=== PATIENT | male | born 1975 | race Caucasian/White ===

== ENCOUNTER 2016-11-18 12:57 | Emergency (ER) | payer OTHER ==
[2016-11-18 13:05] VITALS: TEMP 97.2
[2016-11-18] MEDS ORDERED: DICYCLOMINE 10 MG/ML 2 ML AMP IM STA (13:39)
[2016-11-18] MEDS ORDERED: SODIUM CHLORIDE 0.9% 2,000 ML IV STA (13:39)
[2016-11-18] MEDS ORDERED: cloNIDine 0.1 MG/24HR PATCH 1 PATCH PATCH TRANSDERM STA (13:39)
[2016-11-18] MEDS ORDERED: ONDANSETRON 4 MG/2 ML VIAL IVP STA (13:39)
--- NOTE | 2016-11-18 13:42 | ED ---
General Adult HPI - General Chief complaint: Nausea/Vomiting/Diarrhea Stated complaint: withdrawal symptoms Time Seen by Provider: 11/18/16 13:35 Source: patient, RN notes reviewed Mode of arrival: ambulatory Limitations: no limitations - History of Present Illness Initial comments: 41-year-old male presents to the emergency department with a chief complaint of opiate withdrawal. Patient states that he abused heroin and fentanyl. Patient states her last 2 days he has not been using. Patient states these having nausea vomiting abdominal pain. Patient has controlled the past. Patient states she's not a liter drink anything for the last 2 days and he continues to have this pains and he was hoping there was something we can give him to help with her symptoms. Patient denies any recent fever, chills, shortness of breath , chest pain, back pain, numbness or tingling, dysuria or hematuria, constipation or diarrhea, headaches or visual changes, or any other current symptoms. - Related Data Previous Rx's Medication Instructions Recorded Ondansetron Odt [Zofran ODT] 4 mg PO Q8HR PRN #20 tab 11/18/16 Allergies Allergy/AdvReac Type Severity Reaction Status Date / Time No Known Allergies Allergy Verified 11/18/16 14:22 Review of Systems ROS Statement: Those systems with pertinent positive or pertinent negative responses have been documented in the HPI. ROS Other: All systems not noted in ROS Statement are negative. Past Medical History Past Medical History: No Reported History History of Any Multi-Drug Resistant Organisms: None Reported Past Surgical History: No Surgical Hx Reported Past Psychological History: No Psychological Hx Reported Smoking Status: Current every day smoker Past Alcohol Use History: Occasional Past Drug Use History: Marijuana, Opiates General Exam - General Exam Comments Initial Comments: General: The patient is awake and alert, in no distress, and does not appear acutely ill. Eye: Pupils are equal, round and reactive to light, extra-ocular movements are intact; there is normal conjunctiva bilaterally. No signs of icterus. Ears, nose, mouth and throat: Patient's mucous membranes do appear to be dry. Neck: The neck is supple, there is no tenderness. Cardiovascular: There is a regular rate and rhythm. No murmur, rub or gallop is appreciated. Respiratory: Lungs are clear to auscultation, respirations are non-labored, breath sounds are equal. No wheezes, stridor, rales, or rhonchi. Gastrointestinal: Soft, non-distended, non-tender abdomen without masses or organomegaly noted. There is no rebound or guarding present. No CVA tenderness. Bowel sounds are unremarkable. Back: There is no tenderness to palpation in the midline. There is no obvious deformity. No rashes noted. Musculoskeletal: Normal ROM, no tenderness, There is no pedal edema. There is no calf tenderness or swelling. Sensation intact. Pulses equal bilaterally 2+. Neurological: CN II-XII intact, There are no obvious motor or sensory deficits. Coordination appears grossly intact. Speech is normal. Skin: Skin is warm and dry and no rashes or lesions are noted. Psychiatric: Cooperative, appropriate mood & affect, normal judgment. Limitations: no limitations Course Vital Signs 11/18/16 13:00 Temperature 97.2 F L Pulse Rate 79 Respiratory 18 Rate Blood Pressure 155/98 O2 Sat by Pulse 99 Oximetry Medical Decision Making - Medical Decision Making 41-year-old male presents for opiate withdrawal. His lab work is reviewed. Patient does appear to be adequately hydrated we did give him fluids. We also gave him Zofran for home he is given a clonidine patch. We did discuss follow- up he was given follow-up for since abuse programs. We did discuss return for hours all his questions. He stated the Mukul is given plan. He will be discharged. - Lab Data Result diagrams: 11/18/16 13:50 11/18/16 13:50 Lab Results 11/18/16 11/18/16 Range/Units 13:50 13:50 WBC 11.5 H (3.8-10.6) k/uL RBC 5.11 (4.30-5.90) m/uL Hgb 15.8 (13.0-17.5) gm/dL Hct 45.7 (39.0-53.0) % MCV 89.4 (80.0-100.0) fL MCH 30.9 (25.0-35.0) pg MCHC 34.5 (31.0-37.0) g/dL RDW 15.5 (11.5-15.5) % Plt Count 412 (150-450) k/uL Neutrophils % 77 % Lymphocytes % 15 % Monocytes % 5 % Eosinophils % 1 % Basophils % 0 % Neutrophils # 8.9 H (1.3-7.7) k/uL Lymphocytes # 1.8 (1.0-4.8) k/uL Monocytes # 0.5 (0-1.0) k/uL Eosinophils # 0.1 (0-0.7) k/uL Basophils # 0.0 (0-0.2) k/uL Sodium 136 L (137-145) mmol/L Potassium 4.0 (3.5-5.1) mmol/L Chloride 98 (98-107) mmol/L Carbon Dioxide 24 (22-30) mmol/L Anion Gap 14 mmol/L BUN 17 (9-20) mg/dL Creatinine 0.50 L (0.66-1.25) mg/dL Est GFR (MDRD) Af Amer >60 (>60 ml/min/1.73 sqM) Est GFR (MDRD) Non-Af >60 (>60 ml/min/1.73 sqM) Glucose 104 H (74-99) mg/dL Calcium 9.7 (8.4-10.2) mg/dL Total Bilirubin 2.7 H (0.2-1.3) mg/dL AST 58 (17-59) U/L ALT 67 (21-72) U/L Alkaline Phosphatase 102 (38-126) U/L Total Protein 8.9 H (6.3-8.2) g/dL Albumin 4.3 (3.5-5.0) g/dL Disposition Clinical Impression: Hyponatremia Disposition: HOME SELF-CARE Condition: Stable Instructions: Narcotic Abuse (ED) Additional Instructions: Please use medication as discussed. Please follow up with family doctor if symptoms have not improved over the next two days. Please return to the emergency room if your symptoms increase or worsen or for any other concerns. Prescriptions: Ondansetron Odt [Zofran ODT] 4 mg PO Q8HR PRN #20 tab PRN Reason: Nausea Referrals: Angie Mohan MD [STAFF PHYSICIAN] - 1-2 days Time of Disposition: 14:36
[2016-11-18 14:24] LABS: Basophils % (A) 0 %; CH 30.7; CHCM 34.5; Eosinophils # (A) 0.1 k/uL (0-0.7); Eosinophils % (A) 1 %; HCT 45.7 % (39.0-53.0); HDW 2.37; HGB 15.8 gm/dL (13.0-17.5); Luc # (Auto) 0.27; Luc % (Auto) 2; Lymphocytes # (A) 1.8 k/uL (1.0-4.8); Lymphocytes % (A) 15 %; MCH 30.9 pg (25.0-35.0); MCHC 34.5 g/dL (31.0-37.0); MCV 89.4 fL (80.0-100.0); Mean Platelet Volume 7.1; Monocytes # (A) 0.5 k/uL (0-1.0); Monocytes % (A) 5 %; Neutrophils # (A) 8.9 k/uL (1.3-7.7); Neutrophils % (A) 77 %; RBC 5.11 m/uL (4.30-5.90); RDW 15.5 % (11.5-15.5); WBC 11.5 k/uL (3.8-10.6); WBC (Perox) 11.63
[2016-11-18 14:28] LABS: ALT 67 U/L (21-72); AST 58 U/L (17-59); Alkaline Phosphatase 102 U/L (38-126); Anion Gap 14 mmol/L; Blood Urea Nitrogen 17 mg/dL (9-20); Calcium 9.7 mg/dL (8.4-10.2); Carbon Dioxide 24 mmol/L (22-30); Chloride 98 mmol/L (98-107); Glucose 104 mg/dL (74-99); Non-African American GFR(MDRD) >60 (>60 ml/min/1.73 sqM); Sodium 136 mmol/L (137-145); Total Bilirubin 2.7 mg/dL (0.2-1.3); Total Protein 8.9 g/dL (6.3-8.2)
[2016-11-18 14:50] VITALS: RESP 20
[2016-11-18 14:52] VITALS: BP 159/83; PULSE 71
== END 2016-11-18 15:03 | disposition home or self-care (01) ==
LOC: EC 12:57
DX: E87.1 Hypo-osmolality and hyponatremia (principal); R11.2 Nausea with vomiting, unspecified; F17.200 Nicotine dependence, unspecified, uncomplicated
CPT/HCPCS: 99284; 96365; 96375; 96372; 36415; 80053; 85025; J0500; J2405

== ENCOUNTER 2020-06-05 22:21 | Emergency (ER) | payer OTHER ==
[2020-06-05 22:29] VITALS: TEMP 98.2
--- NOTE | 2020-06-05 22:52 | ED ---
General Adult HPI - General Chief complaint: Alcohol Stated complaint: ETOH Time Seen by Provider: 06/05/20 22:37 Source: patient, EMS Mode of arrival: EMS Limitations: no limitations - History of Present Illness Initial comments: This patient's a 44-year-old man brought here after being found unconscious in public space. When I interview the patient, he states that someone had given him Xanax. Patient states that he usually uses heroin as well but did not today. Denies use of other substances today no alcohol. Patient denies any injury or other medical condition. No pain area no dyspnea. Patient requests a popsicle -: minutes(s) Severity scale (1-10): 0 Improves with: none Worsens with: none Associated Symptoms: denies other symptoms Treatments Prior to Arrival: none - Related Data Home Medications Medication Instructions Recorded Confirmed No Known Home Medications 02/21/17 02/21/17 Allergies Allergy/AdvReac Type Severity Reaction Status Date / Time No Known Allergies Allergy Verified 02/21/17 09:09 Review of Systems ROS Statement: Those systems with pertinent positive or pertinent negative responses have been documented in the HPI. ROS Other: All systems not noted in ROS Statement are negative. Constitutional: Denies: fever, weakness Eyes: Denies: eye pain, vision change Respiratory: Denies: cough, dyspnea Cardiovascular: Denies: chest pain, palpitations Gastrointestinal: Denies: abdominal pain, vomiting, diarrhea Genitourinary: Denies: dysuria, hematuria Musculoskeletal: Denies: back pain Skin: Denies: rash Neurological: Denies: headache, weakness Psychiatric: Denies: depression, homicidal thoughts, suicidal thoughts Past Medical History Past Medical History: No Reported History History of Any Multi-Drug Resistant Organisms: None Reported Past Surgical History: No Surgical Hx Reported Past Psychological History: No Psychological Hx Reported Smoking Status: Current every day smoker Past Alcohol Use History: Occasional Past Drug Use History: Heroin, Marijuana, Opiates General Exam Limitations: no limitations General appearance: in no apparent distress, other (The patient is somnolent but arousable.) Head exam: Present: atraumatic, normocephalic Eye exam: Present: normal appearance, PERRL, EOMI. Absent: scleral icterus, conjunctival injection ENT exam: Present: mucous membranes dry Neck exam: Present: normal inspection, full ROM. Absent: tenderness Respiratory exam: Present: normal lung sounds bilaterally. Absent: respiratory distress, wheezes, rales, rhonchi, stridor Cardiovascular Exam: Present: regular rate, normal rhythm, normal heart sounds. Absent: systolic murmur, diastolic murmur, rubs, gallop GI/Abdominal exam: Present: soft. Absent: distended, tenderness, guarding, rebound, rigid Extremities exam: Present: normal inspection, normal capillary refill. Absent: pedal edema, calf tenderness Back exam: Absent: CVA tenderness (R), CVA tenderness (L), vertebral tenderness Neurological exam: Present: oriented X3, CN II-XII intact, other (Somnolent but arousable. GCS 15.). Absent: motor sensory deficit Psychiatric exam: Absent: depressed, suicidal ideation Skin exam: Present: warm, dry, normal color, other (Needle tracks to left hand dorsum) Course Vital Signs 06/05/20 06/05/20 06/06/20 22:22 23:29 00:00 Temperature 98.2 F Pulse Rate 73 68 70 Respiratory 16 18 16 Rate Blood Pressure 127/82 112/62 O2 Sat by Pulse 100 96 96 Oximetry 06/06/20 06/06/20 06/06/20 01:00 02:00 03:00 Temperature Pulse Rate 65 Respiratory 18 Rate Blood Pressure O2 Sat by Pulse 95 93 L 97 Oximetry Disposition Clinical Impression: Benzodiazepine intoxication Disposition: HOME SELF-CARE Condition: Good Instructions (If sedation given, give patient instructions): Benzodiazepine Overdose (ED) Is patient prescribed a controlled substance at d/c from ED?: No Referrals: None,Stated [Primary Care Provider] - 1-2 days
[2020-06-06 04:30] VITALS: BP 112/62; PULSE 65; RESP 18
== END 2020-06-06 04:45 | disposition home or self-care (01) ==
LOC: EC 22:21
DX: T42.4X1A Poisoning by benzodiazepines, accidental (unintentional), initial encounter (principal); F17.200 Nicotine dependence, unspecified, uncomplicated; F12.90 Cannabis use, unspecified, uncomplicated; F11.90 Opioid use, unspecified, uncomplicated; F15.90 Other stimulant use, unspecified, uncomplicated
CPT/HCPCS: 99284

== ENCOUNTER 2021-06-12 02:22 | Inpatient (IN) | payer OTHER ==
[2021-06-12] MEDS ORDERED: SODIUM CHLORIDE 0.9% 1,000 ML IV STA (02:35)
[2021-06-12] MEDS ORDERED: ETOMIDATE 2 MG/ML 10 ML VIAL IVP STA (02:41)
[2021-06-12] MEDS ORDERED: SUCCINYLCHOLINE CHLORIDE VIAL 200 MG/10 ML VIAL IV STA (02:42)
[2021-06-12] MEDS ORDERED: LORazepam 2 MG/ML INJ IV STA (02:45)
[2021-06-12] MEDS ORDERED: HYDROmorphone 1 MG/ML 1 ML SYRINGE IVP STA ×2 (02:46→03:21)
--- NOTE | 2021-06-12 03:10 | XR ---
EXAMINATION TYPE: XR chest 1V portable DATE OF EXAM: 06/12/2021 COMPARISON: NONE HISTORY: Respiratory failure TECHNIQUE: Single view FINDINGS: The endotracheal tube is 4 cm from the collins. There is left-sided pulmonary interstitial a nd airspace edema. There is minimal edema right lower lobe. Heart size is normal. There are chest christiano ds. There are no hilar masses. No pleural effusion. IMPRESSION: There is pulmonary edema. Endotracheal tube in good position.
[2021-06-12 03:18] LABS: ABG Base Excess -5.4 mmol/L; ABG HCO3 24 mmol/L (21-25); ABG Oxygen Saturation 96.3 % (94-97); ABG PO2 114 mmHg (83-108); ABG TCO2 27 mmol/L (19-24); Allen Test Performed? Yes
[2021-06-12 03:25] LABS: ABG PCO2 78 mmHg (35-45)
[2021-06-12 03:41] LABS: Basophils # (A) 0.1 k/uL (0-0.2); Basophils % (A) 1 %; Eosinophils # (A) 0.4 k/uL (0-0.7); Eosinophils % (A) 3 %; HCT 50.2 % (39.0-53.0); HGB 16.7 gm/dL (13.0-17.5); Lymphocytes # (A) 8.7 k/uL (1.0-4.8); Lymphocytes % (A) 59 %; MCH 30.6 pg (25.0-35.0); MCHC 33.2 g/dL (31.0-37.0); Mean Platelet Volume 7.4; Monocytes # (A) 0.6 k/uL (0-1.0); Monocytes % (A) 4 %; Neutrophils # (A) 4.6 k/uL (1.3-7.7); Neutrophils % (A) 31 %; Platelet Count 274 k/uL (150-450); RBC 5.46 m/uL (4.30-5.90); RDW 14.7 % (11.5-15.5); WBC 14.8 k/uL (3.8-10.6)
[2021-06-12 03:48] LABS: ALT 134 U/L (4-49); AST 205 U/L (17-59); African American GFR (CKD) >90 (>60 ml/min/1.73 sqM); Alcohol <10 mg/dL; Alkaline Phosphatase 72 U/L (38-126); Anion Gap 12 mmol/L; Blood Urea Nitrogen 20 mg/dL (9-20); Calcium 8.4 mg/dL (8.4-10.2); Carbon Dioxide 19 mmol/L (22-30); Chloride 105 mmol/L (98-107); Glucose 149 mg/dL (74-99); Non-African American GFR(CKD) >90 (>60 ml/min/1.73 sqM); Sodium 136 mmol/L (137-145); Total Bilirubin 1.2 mg/dL (0.2-1.3); Total Protein 8.2 g/dL (6.3-8.2)
[2021-06-12 03:49] LABS: Potassium 4.5 mmol/L (3.5-5.1)
--- NOTE | 2021-06-12 04:15 | ED ---
Overdose HPI - General Chief Complaint: Overdose Stated Complaint: overdose Time Seen by Provider: 06/12/21 02:24 Source: patient, EMS Mode of arrival: EMS Limitations: no limitations - History of Present Illness Initial Comments: This patient is a 45-year-old man who reportedly has history of heroin use found by associates unresponsive. They activated EMS and patient reportedly received some bystander CPR. The patient was given Narcan 1 mg intranasal and then became more alert, pushing people away, breathing on his own. On arrival here, the patient is not able to provide any history due to respiratory distress and appears delirious. Complaint: other -: unknown Intent: unknown How Overdose Was Discovered: family/friend present at time - Related Data Allergies Allergy/AdvReac Type Severity Reaction Status Date / Time Unable to Assess Allergy Verified 06/12/21 02:29 Review of Systems ROS Statement: Those systems with pertinent positive or pertinent negative responses have been documented in the HPI. ROS Other: All systems not noted in ROS Statement are negative. Limitations: ROS unobtainable due to patients medical condition (Delirium and respiratory distress) Past Medical History Past Medical History: Unable to Obtain History of Any Multi-Drug Resistant Organisms: Unobtainable Past Surgical History: Unable to Obtain Past Psychological History: Unable to Obtain Smoking Status: Current every day smoker Past Alcohol Use History: Occasional Past Drug Use History: Heroin General Exam Limitations: no limitations General appearance: obtunded Head exam: Present: atraumatic, normocephalic Eye exam: Present: normal appearance, PERRL, EOMI. Absent: scleral icterus, conjunctival injection ENT exam: Present: other Neck exam: Present: normal inspection, full ROM. Absent: tenderness, meningismus Respiratory exam: Present: respiratory distress, rales, rhonchi, accessory muscle use. Absent: decreased breath sounds, prolonged expiratory Cardiovascular Exam: Present: normal rhythm, tachycardia, systolic murmur. Absent: diastolic murmur, rubs, gallop GI/Abdominal exam: Present: soft, guarding. Absent: distended, rebound, rigid, mass, pulsatile mass Extremities exam: Present: normal inspection, normal capillary refill. Absent: tenderness, pedal edema Back exam: Present: normal inspection. Absent: CVA tenderness (R), CVA tenderness (L), vertebral tenderness Neurological exam: Present: altered, CN II-XII intact, other (Patient appears delirious. He is making purposeful movements. He does attempt to pull the nonrebreather mask off. When instructed not to, the patient does listen to commands briefly). Absent: oriented X3, motor sensory deficit Skin exam: Present: intact, normal color, cyanosis, diaphoretic, other (Skin is cool and diaphoretic. There is piloerection.). Absent: rash Course Vital Signs 06/12/21 06/12/21 06/12/21 02:24 02:55 03:26 Temperature 97.3 F L Pulse Rate 130 H 108 H Pulse Rate [ 110 H Auditor In Charge ] Respiratory 38 H 28 H Rate Blood Pressure 181/107 114/76 O2 Sat by Pulse 87 L 97 Oximetry 06/12/21 06/12/21 06/12/21 03:30 03:42 03:46 Temperature Pulse Rate 107 H 106 H 105 H Pulse Rate [ Auditor In Charge ] Respiratory 28 H 28 H 28 H Rate Blood Pressure 94/52 115/67 108/62 O2 Sat by Pulse 97 97 100 Oximetry 06/12/21 06/12/21 04:00 04:28 Temperature Pulse Rate 96 87 Pulse Rate [ Auditor In Charge ] Respiratory 28 H 28 H Rate Blood Pressure 89/49 92/55 O2 Sat by Pulse 99 100 Oximetry Procedures - Intubation Sedative: Etomidate Paralytic: Succinylcholine Laryngoscope: Will Size: 3 ET Tube Size: 8 ET Tube Uncuffed: No Tube Secured Depth (cm): 21 Tube Secured Location: teeth Tube Placement Confirmation: visualized tube passing through cords, equal breath sounds bilaterally, no breath sounds over epigastrium, confirmation by capnometry Patient Tolerated Procedure: well Intubation Complications: none Medical Decision Making - Medical Decision Making Patient is 45-year-old man brought falling suspected heroin overdose. The patient is manifesting moderate to marked respiratory distress clinically appearing to have significant pulmonary edema versus some aspiration. The patient is intubated for acute respiratory failure. Case is discussed with admitting physician and with the residential program manager. Treatment recommendations are incorporated. - Lab Data Result diagrams: 06/12/21 06:05 06/12/21 03:07 Lab Results 06/12/21 06/12/21 06/12/21 Range/Units 03:07 03:07 03:07 WBC 14.8 H (3.8-10.6) k/uL RBC 5.46 (4.30-5.90) m/uL Hgb 16.7 (13.0-17.5) gm/dL Hct 50.2 (39.0-53.0) % MCV 92.0 (80.0-100.0) fL MCH 30.6 (25.0-35.0) pg MCHC 33.2 (31.0-37.0) g/dL RDW 14.7 (11.5-15.5) % Plt Count 274 (150-450) k/uL MPV 7.4 Neutrophils % 31 % Lymphocytes % 59 % Monocytes % 4 % Eosinophils % 3 % Basophils % 1 % Neutrophils # 4.6 (1.3-7.7) k/uL Lymphocytes # 8.7 H (1.0-4.8) k/uL Monocytes # 0.6 (0-1.0) k/uL Eosinophils # 0.4 (0-0.7) k/uL Basophils # 0.1 (0-0.2) k/uL Manual Slide Review Performed Sample Site ABG pH (7.35-7.45) ABG pCO2 (35-45) mmHg ABG pO2 (83-108) mmHg ABG HCO3 (21-25) mmol/L ABG Total CO2 (19-24) mmol/L ABG O2 Saturation (94-97) % ABG Base Excess mmol/L Nelson Test FiO2 % Sodium 136 L (137-145) mmol/L Potassium 4.5 (3.5-5.1) mmol/L Chloride 105 (98-107) mmol/L Carbon Dioxide 19 L (22-30) mmol/L Anion Gap 12 mmol/L BUN 20 (9-20) mg/dL Creatinine 0.84 (0.66-1.25) mg/dL Est GFR (CKD-EPI)AfAm >90 (>60 ml/min/1.73 sqM) Est GFR (CKD-EPI)NonAf >90 (>60 ml/min/1.73 sqM) Glucose 149 H (74-99) mg/dL Lactic Ac Sepsis Rflx Plasma Lactic Acid Paulo 4.5 H* (0.7-2.0) mmol/L Calcium 8.4 (8.4-10.2) mg/dL Total Bilirubin 1.2 (0.2-1.3) mg/dL AST 205 H (17-59) U/L ALT 134 H (4-49) U/L Alkaline Phosphatase 72 (38-126) U/L Troponin I (0.000-0.034) ng/mL NT-Pro-B Natriuret Pep pg/mL Total Protein 8.2 (6.3-8.2) g/dL Albumin 4.0 (3.5-5.0) g/dL Serum Alcohol <10 mg/dL 06/12/21 06/12/21 06/12/21 Range/Units 03:07 03:07 03:10 WBC (3.8-10.6) k/uL RBC (4.30-5.90) m/uL Hgb (13.0-17.5) gm/dL Hct (39.0-53.0) % MCV (80.0-100.0) fL MCH (25.0-35.0) pg MCHC (31.0-37.0) g/dL RDW (11.5-15.5) % Plt Count (150-450) k/uL MPV Neutrophils % % Lymphocytes % % Monocytes % % Eosinophils % % Basophils % % Neutrophils # (1.3-7.7) k/uL Lymphocytes # (1.0-4.8) k/uL Monocytes # (0-1.0) k/uL Eosinophils # (0-0.7) k/uL Basophils # (0-0.2) k/uL Manual Slide Review Sample Site rbrach ABG pH 7.10 L* (7.35-7.45) ABG pCO2 78 H* (35-45) mmHg ABG pO2 114 H (83-108) mmHg ABG HCO3 24 (21-25) mmol/L ABG Total CO2 27 H (19-24) mmol/L ABG O2 Saturation 96.3 (94-97) % ABG Base Excess -5.4 mmol/L Nelson Test Yes FiO2 100 % Sodium (137-145) mmol/L Potassium (3.5-5.1) mmol/L Chloride (98-107) mmol/L Carbon Dioxide (22-30) mmol/L Anion Gap mmol/L BUN (9-20) mg/dL Creatinine (0.66-1.25) mg/dL Est GFR (CKD-EPI)AfAm (>60 ml/min/1.73 sqM) Est GFR (CKD-EPI)NonAf (>60 ml/min/1.73 sqM) Glucose (74-99) mg/dL Lactic Ac Sepsis Rflx Plasma Lactic Acid Paulo (0.7-2.0) mmol/L Calcium (8.4-10.2) mg/dL Total Bilirubin (0.2-1.3) mg/dL AST (17-59) U/L ALT (4-49) U/L Alkaline Phosphatase (38-126) U/L Troponin I 0.020 (0.000-0.034) ng/mL NT-Pro-B Natriuret Pep 96 pg/mL Total Protein (6.3-8.2) g/dL Albumin (3.5-5.0) g/dL Serum Alcohol mg/dL 06/12/21 Range/Units 03:50 WBC (3.8-10.6) k/uL RBC (4.30-5.90) m/uL Hgb (13.0-17.5) gm/dL Hct (39.0-53.0) % MCV (80.0-100.0) fL MCH (25.0-35.0) pg MCHC (31.0-37.0) g/dL RDW (11.5-15.5) % Plt Count (150-450) k/uL MPV Neutrophils % % Lymphocytes % % Monocytes % % Eosinophils % % Basophils % % Neutrophils # (1.3-7.7) k/uL Lymphocytes # (1.0-4.8) k/uL Monocytes # (0-1.0) k/uL Eosinophils # (0-0.7) k/uL Basophils # (0-0.2) k/uL Manual Slide Review Sample Site ABG pH (7.35-7.45) ABG pCO2 (35-45) mmHg ABG pO2 (83-108) mmHg ABG HCO3 (21-25) mmol/L ABG Total CO2 (19-24) mmol/L ABG O2 Saturation (94-97) % ABG Base Excess mmol/L Nelson Test FiO2 % Sodium (137-145) mmol/L Potassium (3.5-5.1) mmol/L Chloride (98-107) mmol/L Carbon Dioxide (22-30) mmol/L Anion Gap mmol/L BUN (9-20) mg/dL Creatinine (0.66-1.25) mg/dL Est GFR (CKD-EPI)AfAm (>60 ml/min/1.73 sqM) Est GFR (CKD-EPI)NonAf (>60 ml/min/1.73 sqM) Glucose (74-99) mg/dL Lactic Ac Sepsis Rflx Y Plasma Lactic Acid Paulo (0.7-2.0) mmol/L Calcium (8.4-10.2) mg/dL Total Bilirubin (0.2-1.3) mg/dL AST (17-59) U/L ALT (4-49) U/L Alkaline Phosphatase (38-126) U/L Troponin I (0.000-0.034) ng/mL NT-Pro-B Natriuret Pep pg/mL Total Protein (6.3-8.2) g/dL Albumin (3.5-5.0) g/dL Serum Alcohol mg/dL - EKG Data -: EKG Interpreted by Me EKG shows normal: sinus rhythm, axis (Normal), intervals (Short LA interval at 110 ms. QRS duration 88 ms, QTC 384 ms, both normal.), QRS complexes (Normal) Rate: tachycardia (Rate 111 bpm) Interpretation: nonspecific ST-T wave changes Critical Care Time Critical Care Time: Yes (40 minutes) Disposition Clinical Impression: Acute respiratory failure, Pulmonary edema, Overdose Disposition: ADMITTED IP TO THIS HOSP Condition: Critical Is patient prescribed a controlled substance at d/c from ED?: No
[2021-06-12] MEDS ORDERED: ACETAMINOPHEN SUPPOSITORY 650 MG SUPP RECTAL PRN (04:33)
[2021-06-12] MEDS ORDERED: MORPHINE SULFATE 2 MG/ML SYRINGE IV PRN (04:33)
[2021-06-12] MEDS ORDERED: IPRATROPIUM-ALBUTEROL 3 ML NEB INHALATION PRN (04:33)
[2021-06-12] MEDS ORDERED: ARTIFICIAL TEARS OINTMENT 3.5 GM TUBE BOTH EYES PRN (04:33)
[2021-06-12] MEDS ORDERED: NALOXONE 0.4 MG/ML 1 ML VIAL IV PRN (04:33)
[2021-06-12] MEDS ORDERED: PIPERACILLIN-TAZOBACTAM 3.375 GM in SODIUM CHLORIDE 0.9% 100 ML IVPB STA (04:40)
--- NOTE | 2021-06-12 05:05 | P.HPIM ---
History of Present Illness H&P Date: 06/12/21 Patient is a 45-year-old male with a PMH of substance abuse who was brought in by EMS after he was found unresponsive. History obtained from the ED physician and the chart as the patient was intubated at the time of interview. The patient reportedly has a history of heroin abuse and was found by his friends to be unresponsive. The reportedly were doing CPR when EMS arrived, who subsequently gave the patient Narcan which made him more alert. The patient however was in severe respiratory distress and had episodes of vomiting, for which the patient was intubated. Chest x-ray in the emergency room revealed pulmonary edema. EKG revealed sinus tachycardia at 1 11 bpm with T-wave flattening in the inferior leads. Laboratory evaluation was remarkable for WBC 14.8, pH ABG 7.1, pCO2 78, and lactic acid 4.5. Review of systems: Unable to obtain due to mental status Physical examination: General: Disheveled male, intubated, no distress, appears at stated age, normal weight Derm: no unusual rashes/lesions no unusual ecchymoses, warm, dry Head: atraumatic, normocephalic, symmetric Eyes: Anicteric sclera, pupils pinpoint ENT: Nose and ears atraumatic Neck: No thyromegaly, no cervical lymphadenopathy, trachea midline, supple Mouth: no lip lesion Cardiovascular: S1S2 reg, no murmur, positive posterior tibial pulse bilateral, no edema, capillary refill less than 2 seconds Lungs: Scattered coarse breath sounds, no wheezing, no accessory muscle use Abdominal: soft, no appreciable organomegaly Ext: no gross muscle atrophy, no contractures Neuro: Unable to assess Psych: Unable to assess Assessment/plan Acute hypoxic respiratory failure in setting of opiate overdose, suspected aspiration -Continue with Zosyn IV -Ventilator bundle -IV fluids -Driver Education Instructor consult -Admit to medical ICU -Obtain Echo DVT prophylaxis -Heparin subq The patient is admitted with an anticipated greater than 2 midnight stay for evaluation of respiratory failure CODE STATUS: Full Code Anticipated discharge date: 06/[address]: Home Past Medical History Past Medical History: Unable to Obtain History of Any Multi-Drug Resistant Organisms: Unobtainable Past Surgical History: Unable to Obtain Past Psychological History: Unable to Obtain Smoking Status: Current every day smoker Past Alcohol Use History: Occasional Past Drug Use History: Heroin Medications and Allergies Allergies Allergy/AdvReac Type Severity Reaction Status Date / Time Unable to Assess Allergy Verified 06/12/21 02:29 Physical Exam Vitals: Vital Signs Temp Pulse Pulse Resp BP Pulse Ox 06/12/21 04:28 87 28 H 92/55 100 06/12/21 04:00 96 28 H 89/49 99 06/12/21 03:46 105 H 28 H 108/62 100 06/12/21 03:42 106 H 28 H 115/67 97 06/12/21 03:30 107 H 28 H 94/52 97 06/12/21 03:26 97.3 F L 108 H 28 H 114/76 97 06/12/21 02:55 110 H 06/12/21 02:24 130 H 38 H 181/107 87 L Intake and Output 06/11/21 06/11/21 06/12/21 14:59 22:59 06:59 Intake Total 5.012 Balance 5.012 Intake: Intake, IV Titration 5.012 Amount propofoL 1,000 mg In 5.012 Empty Bag 1 bag @ 5 MCG/ KG/MIN 2.228 mls/hr IV . Q24H STA Rx#:[id number] Other: Weight 74.253 kg Results CBC & Chem 7: 06/12/21 03:07 06/12/21 03:07 Labs: Abnormal Lab Results - Last 24 Hours (Table) 06/12/21 06/12/21 06/12/21 Range/Units 03:07 03:07 03:07 WBC 14.8 H (3.8-10.6) k/uL Lymphocytes # 8.7 H (1.0-4.8) k/uL ABG pH (7.35-7.45) ABG pCO2 (35-45) mmHg ABG pO2 (83-108) mmHg ABG Total CO2 (19-24) mmol/L Sodium 136 L (137-145) mmol/L Carbon Dioxide 19 L (22-30) mmol/L Glucose 149 H (74-99) mg/dL Plasma Lactic Acid Paulo 4.5 H* (0.7-2.0) mmol/L AST 205 H (17-59) U/L ALT 134 H (4-49) U/L 06/12/21 Range/Units 03:10 WBC (3.8-10.6) k/uL Lymphocytes # (1.0-4.8) k/uL ABG pH 7.10 L* (7.35-7.45) ABG pCO2 78 H* (35-45) mmHg ABG pO2 114 H (83-108) mmHg ABG Total CO2 27 H (19-24) mmol/L Sodium (137-145) mmol/L Carbon Dioxide (22-30) mmol/L Glucose (74-99) mg/dL Plasma Lactic Acid Paulo (0.7-2.0) mmol/L AST (17-59) U/L ALT (4-49) U/L
[2021-06-12 05:33] LABS: Amphetamine Screen,Urine Detected (NotDetected); Barbiturate Screen,Urine Not Detected (NotDetected); Benzodiazepines Screen,Urine Not Detected (NotDetected); Cocaine Screen,Urine Not Detected (NotDetected); Methadone Screen, Urine Not Detected (NotDetected); Opiate Screen,Urine Not Detected (NotDetected); Oxycodone Screen, Urine Not Detected (NotDetected); Phencyclidine Screen,Urine Not Detected (NotDetected); Tricyclic Antidepressant,Urine Not Detected (NotDetected); Urn Cannabinoid Scrn Detected (NotDetected)
--- NOTE | 2021-06-12 05:37 | CT ---
EXAMINATION TYPE: CT brain wo con DATE OF EXAM: 06/12/2021 COMPARISON: None. HISTORY: ams, intubated, overdose CT DLP: 1106.4 mGycm. Automated Exposure Control for Dose Reduction was Utilized. TECHNIQUE: CT scan of the head is performed without contrast. FINDINGS: There is no acute intracranial hemorrhage, mass effect, or midline shift identified. The ventricles and sulci are within normal limits in size. García-white matter differentiation is maintai dillon. The globes are intact and the visualized sinuses are clear. Prominent soft tissue density left e xternal auditory canal is felt to reflect cerumen. Correlate clinically with direct physical exam. Na mariana septum is deviated to the left of midline. Note is made of endotracheal and orogastric tubes part ially imaged on localizer IMPRESSION: No acute intracranial hemorrhage or midline shift is seen.
[2021-06-12 05:44] LABS: Glucose,Whole Blood 88 mg/dL (75-99)
[2021-06-12 05:59] LABS: ABG Base Excess -3.5 mmol/L; ABG HCO3 23 mmol/L (21-25); ABG Oxygen Saturation 99.6 % (94-97); ABG PCO2 51 mmHg (35-45); ABG PH 7.27 (7.35-7.45); ABG PO2 324 mmHg (83-108); ABG TCO2 25 mmol/L (19-24); Allen Test Performed? Yes
--- NOTE | 2021-06-12 06:01 | XR ---
EXAMINATION TYPE: XR chest 1V portable DATE OF EXAM: 06/12/2021 CLINICAL HISTORY: OG tube placement. TECHNIQUE: Single AP portable semiupright view of the chest is obtained. COMPARISON: Chest x-ray from earlier today FINDINGS: New Orogastric tube projects below diaphragm coiled in stomach. Stable positioning of endo tracheal tube. Persistent left greater than right perihilar opacities. No pleural effusion or pneumothorax seen bila terally. Cardiac silhouette size stable and within normal limits. Osseous structures are intact. IMPRESSION: 1. Satisfactory positioning of new orogastric tube. 2. Persistent left greater than right central opacities favoring [id number] edema.
[2021-06-12 07:23] LABS: Basophils # (A) 0.1 k/uL (0-0.2); Basophils % (A) 1 %; Eosinophils % (A) 0 %; HCT 44.7 % (39.0-53.0); HGB 14.2 gm/dL (13.0-17.5); Lymphocytes # (A) 1.7 k/uL (1.0-4.8); Lymphocytes % (A) 17 %; MCH 29.7 pg (25.0-35.0); MCHC 31.8 g/dL (31.0-37.0); MCV 93.3 fL (80.0-100.0); Mean Platelet Volume 7.5; Monocytes # (A) 0.6 k/uL (0-1.0); Monocytes % (A) 6 %; Neutrophils # (A) 7.9 k/uL (1.3-7.7); Neutrophils % (A) 75 %; Platelet Count 194 k/uL (150-450); RBC 4.79 m/uL (4.30-5.90); RDW 14.3 % (11.5-15.5); WBC 10.5 k/uL (3.8-10.6)
[2021-06-12 07:29] LABS: ALT 111 U/L (4-49); AST 147 U/L (17-59); African American GFR (CKD) >90 (>60 ml/min/1.73 sqM); Albumin 2.9 g/dL (3.5-5.0); Alkaline Phosphatase 50 U/L (38-126); Anion Gap 5 mmol/L; Blood Urea Nitrogen 20 mg/dL (9-20); Calcium 7.5 mg/dL (8.4-10.2); Carbon Dioxide 24 mmol/L (22-30); Chloride 110 mmol/L (98-107); Glucose 75 mg/dL (74-99); Magnesium 1.8 mg/dL (1.6-2.3); Non-African American GFR(CKD) >90 (>60 ml/min/1.73 sqM); Phosphorus 4.8 mg/dL (2.5-4.5); Potassium 4.8 mmol/L (3.5-5.1); Sodium 139 mmol/L (137-145); Total Bilirubin 1.2 mg/dL (0.2-1.3); Total Protein 6.1 g/dL (6.3-8.2)
[2021-06-12] MEDS: FAMOTIDINE 20 MG/2 ML VIAL IV SCH ×2 (10:20→20:15)
[2021-06-12] MEDS: SODIUM CHLORIDE 0.9% 1,000 ML IV SCH (10:20)
[2021-06-12] MEDS: CHLORHEXIDINE GLUCONATE 15 ML CUP MUCOUS MEM SCH ×2 (10:20→20:15)
[2021-06-12] MEDS: HEPARIN SODIUM,PORCINE/PF 5,000 UNIT/0.5 ML SYRINGE SQ SCH ×3 (10:21→23:17)
[2021-06-12 10:27] LABS: Appearance,Urine Cloudy (Clear); Bacteria,Urine Rare /hpf; Bilirubin,Urine Negative (Negative); Blood,Urine Negative (Negative); Color,Urine Yellow; Glucose,Urine (UA) Negative (Negative); Ketones,Urine 1+ (Negative); Leukocyte Esterase,Urine Trace (Negative); Mucus,Urine Rare /hpf; Nitrite,Urine Negative (Negative); PH, Urine 5.5 (5.0-8.0); Protein,Urine Negative (Negative); RBC,Urine 1 /hpf (0-5); Specific Gravity,Urine 1.024 (1.001-1.035); Squamous Epithelial Cell,Urine <1 /hpf (0-4); Urobilinogen,Urine <2.0 mg/dL (<2.0); WBC,Urine 4 /hpf (0-5)
[2021-06-12 11:45] LABS: Glucose,Whole Blood 69 mg/dL (75-99)
[2021-06-12] MEDS: PIPERACILLIN-TAZOBACTAM 3.375 GM in SODIUM CHLORIDE 0.9% 100 ML IVPB SCH ×2 (11:45→20:15)
--- NOTE | 2021-06-12 11:47 | P.CNPUL ---
History of Present Illness Consult date: 06/12/21 Reason for consult: dyspnea, pneumonia Chief complaint: drug overdose History of present illness: 45-year-old male patient who came into the emergency department as the patient was found to be unresponsive and he has history of substance abuse. It was suspected that the patient had a drug overdose. The patient apparently has history of heroin abuse and he was found by friends to be unresponsive. There friends were apparently doing CPR when the EMS arrived to the scene. The patient was given Narcan and this made him more alert. However, following that, he started having significant respiratory distress, he had a bout of emesis and vomiting and he was intubated on the scene. The patient following that was brought into the emergency department. Noted the patient had a urine drug screen the emergency that showed positive amphetamine, methamphetamine, marijuana. There was no opiates. The patient was intubated and he was having copious amount of secretions that seemed to be gastric in nature. The chest x- ray post intubation showed evidence of pulmonary edema with upper lobe predominance and the follow-up chest x-ray from today still showing perihilar infiltrates more so in the upper lobes and this is improved compared to yesterday. This morning, the patient is on propofol at 75 mg/kg per minute. The patient received a total of 1 L of IV fluids in the emergency department and the patient is currently on normal saline at the rate of 75 mL an hour. He is currently on assist control mode at the rate of 28 with a tidal volume of 450 and FiO2 of 50% with a PEEP of 5. Note that his initial blood gases post intubation showed a pH of 7.1 with a pCO2 of 78 and pO2 of 114. Subsequent blood gases showed a pH of 7.27 with a pCO2 of 51 and pO2 of 324 and for that reason the FiO2 has been drop down to 50%. The lactic acid level was at 4.7 dropped down to 1.7. Alcohol level was negative. The patient's white cell count was at 10.5 with a hemoglobin of 14 and platelet count 194. CAT scan of the brain was negative. BN is at 20 with a creatinine of 0.7. Sodium is at 139. Potassium level is at 4.5. AST is at 147, ALT is at 111. The patient did not have any seizure activity. He grimaces to painful stimulation on today's evaluation. UA is showing + ketone otherwise negative. No other information is available from this patient. The patient is currently on IV Zosyn. The patient is on no pressors for now. Review of Systems ROS unobtainable: due to endotracheal tube Past Medical History Past Medical History: Unable to Obtain History of Any Multi-Drug Resistant Organisms: Unobtainable Past Surgical History: Unable to Obtain Past Psychological History: Unable to Obtain Smoking Status: Current every day smoker Past Alcohol Use History: Occasional Past Drug Use History: Heroin Medications and Allergies Home Medications Medication Instructions Recorded Confirmed Type Unable To Assess [Unable to Assess] 06/12/21 06/12/21 History Allergies Allergy/AdvReac Type Severity Reaction Status Date / Time Unable to Assess Allergy Verified 06/12/21 02:29 Physical Exam Vitals: Vital Signs Temp Pulse Pulse Resp BP Pulse Ox 06/12/21 08:30 85 28 H 90/59 100 06/12/21 08:00 98.1 F 88 28 H 100/62 100 06/12/21 07:30 93 28 H 117/78 99 06/12/21 07:00 92 28 H 111/82 99 06/12/21 06:30 91 28 H 107/70 98 06/12/21 06:00 98.3 F 85 28 H 69/58 100 06/12/21 05:40 86 11 L 98/57 99 06/12/21 04:28 87 28 H 92/55 100 06/12/21 04:00 96 28 H 89/49 99 06/12/21 03:46 105 H 28 H 108/62 100 06/12/21 03:42 106 H 28 H 115/67 97 06/12/21 03:30 107 H 28 H 94/52 97 06/12/21 03:26 97.3 F L 108 H 28 H 114/76 97 06/12/21 02:55 110 H 06/12/21 02:24 130 H 38 H 181/107 87 L Intake and Output 06/11/21 06/12/21 06/12/21 22:59 06:59 14:59 Intake Total 80.012 75 Output Total 175 Balance 80.012 -100 Intake: IV 75 75 Sodium Chloride 0.9% 75 75 Intake, IV Titration 5.012 Amount propofoL 1,000 mg In 5.012 Empty Bag 1 bag @ 5 MCG/ KG/MIN 2.228 mls/hr IV . Q24H [facility] Rx#:[id number] Output: Urine 175 Other: Weight 74.253 kg Intubated on a mechanical ventilator. Orogastric and orotracheal tube are both in place Head exam was generally normal. There was no scleral icterus or corneal arcus. Mucous membranes were moist. Neck was supple and without jugular venous distension, thyromegaly, or carotid bruits. Carotids were easily palpable bilaterally. There was no adenopathy. Lungs were clear to auscultation and percussion, and with normal diaphragmatic excursion. No wheezes or rales were noted. Scattered rhonchi heard bilaterally Cardiac exam revealed the PMI to be normally situated and sized. The rhythm was regular and no extrasystoles were noted during several minutes of auscultation. The first and second heart sounds were normal and physiologic splitting of the second heart sound was noted. There were no murmurs, rubs, clicks, or gallops. Abdominal exam revealed normal bowel sounds. The abdomen was soft, non-tender, and without masses, organomegaly, or appreciable enlargement of the abdominal aorta. Extremities are cold and clammy. Nevertheless there is no cyanosis or clubbing. Pulses are diminished in all 4 extremities. Examination of the skin revealed no evidence of significant rashes, suspicious appearing nevi or other concerning lesions. Neurologically the patient is sedated. The patient grimaces to painful stimulation in all 4 extremities. The Babinski sign is upgoing. No clonus. No facial asymmetry. The patient is a positive cough and a gag. Results - Laboratory Findings CBC and BMP: 06/12/21 06:05 06/12/21 06:05 ABG ABG pH 7.27 (7.35-7.45) L 06/12/21 05:58 ABG pCO2 51 mmHg (35-45) H 06/12/21 05:58 ABG pO2 324 mmHg (83-108) H 06/12/21 05:58 ABG O2 Saturation 99.6 % (94-97) H 06/12/21 05:58 Abnormal lab findings: Abnormal Labs 06/12/21 06/12/21 06/12/21 03:07 03:07 03:07 WBC 14.8 H Neutrophils # Lymphocytes # 8.7 H ABG pH ABG pCO2 ABG pO2 ABG Total CO2 ABG O2 Saturation Sodium 136 L Chloride Carbon Dioxide 19 L Glucose 149 H Plasma Lactic Acid Paulo 4.5 H* Calcium Phosphorus AST 205 H ALT 134 H Total Protein Albumin Ur Amphetamines Screen U Methamphetamines Scrn U Marijuana (THC) Screen 06/12/21 06/12/21 06/12/21 03:10 05:08 05:58 WBC Neutrophils # Lymphocytes # ABG pH 7.10 L* 7.27 L ABG pCO2 78 H* 51 H ABG pO2 114 H 324 H ABG Total CO2 27 H 25 H ABG O2 Saturation 99.6 H Sodium Chloride Carbon Dioxide Glucose Plasma Lactic Acid Paulo Calcium Phosphorus AST ALT Total Protein Albumin Ur Amphetamines Screen Detected H U Methamphetamines Scrn Detected H U Marijuana (THC) Screen Detected H 06/12/21 06/12/21 06:05 06:05 WBC Neutrophils # 7.9 H Lymphocytes # ABG pH ABG pCO2 ABG pO2 ABG Total CO2 ABG O2 Saturation Sodium Chloride 110 H Carbon Dioxide Glucose Plasma Lactic Acid Paulo Calcium 7.5 L Phosphorus 4.8 H AST 147 H ALT 111 H Total Protein 6.1 L Albumin 2.9 L Ur Amphetamines Screen U Methamphetamines Scrn U Marijuana (THC) Screen - Diagnostic Findings Chest x-ray: image reviewed Assessment and Plan Plan: 1 acute altered mentation in the setting of a drug overdose. No opiate identified in the urine drug screen it was positive only for amphetamine, methamphetamine and marijuana. The patient was given Narcan on the scene. He continued to be unresponsive and following that the patient had a bout of aspiration and the patient was intubated and placed on mechanical ventilation. No clear history of seizure activity. CAT scan of the brain is been negative. 2 acute hypoxic respiratory failure secondary to above 3 acute bilateral pulmonary infiltrates likely on the basis of aspiration. Currently on IV Zosyn 4 acute hepatic dysfunction with elevated AST and ALP 5 mild lactic acidosis, improved and normalized Plan Continue ventilator support and drop the FiO2 down to 50%. Keep the rest of the ventilator settings are unchanged Keep the patient on propofol for now Consult neurology regarding the possibility of anoxic encephalopathy. May need a seizure evaluation and EEG Check a hepatitis profile Obtain echocardiogram Continue IV Zosyn Continue IV Protonix Continue Lovenox for prophylaxis No weaning trials today. The patient may deserve a sedation holiday the later stage. Awaiting a neurology consultation. Continue IV fluids We'll continue to follow make further recommendations based on his progress. Condition is obviously critically this point in time. Time with Patient: Greater than 30
[2021-06-12] MEDS ORDERED: DEXTROSE 50% SYRINGE 50 ML IVP ONE (11:49)
[2021-06-12] MEDS ORDERED: DEXTROSE 50% SYRINGE 50 ML IVP PRN (11:51)
--- NOTE | 2021-06-12 11:57 | P.CNNES ---
History of Present Illness Consult date: 06/12/21 Requesting physician: Ya Houston Reason for Consult: unresponsive/anoxic? History of Present Illness: Patient is a 45-year-old male, who came to the hospital by ambulance early this morning at 2:22 AM. Patient not able to provide any history. As per EMS flow sheet, when they arrived at the scene at 1:56 AM, patient was laying supine outside on the ground. Patient was unresponsive, agonal. Patient had vomited prior to the events arrival. Bystanders on the scene state they believe patient had taken heroine and overdosed, stated they had attempted to resuscitate patient for 20 minutes prior to calling EMS. Patient's initial oxygen saturation was documented < 50%. Patient's ventilations were assisted via BVM, and saturation went up to 100%. Patient was given 1 mg Narcan intranasally. Patient began to breathe voluntarily, remained unresponsive. Patient's blood pressure was 184/112, pulse rate 135, respiration 12, saturation 100%. Repeat blood pressure 184/108. Patient was brought to the hospital where he continued to be hyporesponsive, therefore he was intubated. Patient was brought to the ICU. Patient's blood test shows normal CBC, pH was 7.27, pCO2 51. Chem-7 normal. AST 147, ALP 111. UA negative. Urine drug screen positive for amphetamine, methamphetamine and marijuana. Chest x-ray showed pulmonary edema. EKG shows sinus tachycardia with short DE interval. Nonspecific ST and T-wave abnormality. CT head showed no acute intracranial hemorrhage or midline shift. I personally reviewed computed tomography scan of the head, appears to be normal. No loss of hazel-white junction. Review of Systems ROS unobtainable: due to endotracheal tube, due to mental status Past Medical History Past Medical History: Unable to Obtain History of Any Multi-Drug Resistant Organisms: Unobtainable Past Surgical History: Unable to Obtain Past Psychological History: Unable to Obtain Smoking Status: Current every day smoker Past Alcohol Use History: Occasional Past Drug Use History: Heroin Medications and Allergies Home Medications Medication Instructions Recorded Confirmed Type Unable To Assess [Unable to Assess] 06/12/21 06/12/21 History Allergies Allergy/AdvReac Type Severity Reaction Status Date / Time Unable to Assess Allergy Verified 06/12/21 02:29 Physical Examination - Vital Signs Vital Signs: Vital Signs Temp Pulse Pulse Resp BP Pulse Ox 06/12/21 10:00 82 28 H 92/58 100 06/12/21 09:30 82 28 H 94/57 100 06/12/21 09:00 81 28 H 91/55 100 06/12/21 08:30 85 28 H 90/59 100 06/12/21 08:00 98.1 F 88 28 H 100/62 100 06/12/21 07:30 93 28 H 117/78 99 06/12/21 07:00 92 28 H 111/82 99 06/12/21 06:30 91 28 H 107/70 98 06/12/21 06:00 98.3 F 85 28 H 69/58 100 06/12/21 05:40 86 11 L 98/57 99 06/12/21 04:28 87 28 H 92/55 100 06/12/21 04:00 96 28 H 89/49 99 06/12/21 03:46 105 H 28 H 108/62 100 06/12/21 03:42 106 H 28 H 115/67 97 06/12/21 03:30 107 H 28 H 94/52 97 06/12/21 03:26 97.3 F L 108 H 28 H 114/76 97 06/12/21 02:55 110 H 06/12/21 02:24 130 H 38 H 181/107 87 L Intake and Output 06/11/21 06/12/21 06/12/21 22:59 06:59 14:59 Intake Total 80.012 300 Output Total 275 Balance 80.012 25 Intake: IV 75 300 Sodium Chloride 0.9% 75 75 Sodium Chloride 0.9% 1, 225 000 ml @ 75 mls/hr IV . [id number] [facility] Rx#:[id number] Intake, IV Titration 5.012 Amount propofoL 1,000 mg In 5.012 Empty Bag 1 bag @ 5 MCG/ KG/MIN 2.228 mls/hr IV . Q24H [facility] Rx#:[id number] Output: Urine 275 Other: Weight 74.253 kg Patient is a middle aged male, who is laying in the bed, sedated on mechanical ventilation. No seizure-like activity noted. Patient is sedated with propofol 35 mcg/kg/m. Patient tries to open his eyes slightly to calling his name loudly, although the eyelids do not open. Speech and language functions cannot be assessed. Attention, concentration and fund of knowledge cannot be assessed. On cranial examination, pupils are equal, 3-4 mm, round and minimally reacting to light. On checking oculocephalics, patient becomes somewhat uncomfortable, and starts bringing his arms up to the ET tube. He was moving both arms. Patient does have a good gag and cough. Face cannot be assessed. Lower cranial nerves cannot be assessed. On muscle strength testing, patient is bringing his both arms up when becomes uncomfortable. Patient did squeeze both hands on commands with the equal strength about 4 in both hands. He did not begin his feet. However he does withdraw to painful stimuli. Deep tendon reflexes arsymmetric, 1+ in the upper limbs, 2 at the knees, 1+ ankles and plantars are upgoing bilaterally. Sensory to touch cannot be assessed. Response to painful stimuli as above. Cerebellar fucannot be assessed Tone and bulk of muscles normal. GaNot able to be assessed. On general examination, there is no carotid bruit or murmur, S1-S2 audible. Abdomen is soft nontender. Bowel sounds present. Chest has coarse crackles. Peripheral pulses are present. No edema. Results - Laboratory Findings CBC and BMP: 06/12/21 06:05 06/12/21 06:05 Abnormal Lab Findings: Abnormal Labs 06/12/21 06/12/21 06/12/21 03:07 03:07 03:07 WBC 14.8 H Neutrophils # Lymphocytes # 8.7 H ABG pH ABG pCO2 ABG pO2 ABG Total CO2 ABG O2 Saturation Sodium 136 L Chloride Carbon Dioxide 19 L Glucose 149 H Plasma Lactic Acid Paulo 4.5 H* Calcium Phosphorus AST 205 H ALT 134 H Total Protein Albumin Urine Ketones Ur Leukocyte Esterase Urine Bacteria Urine Mucus Ur Amphetamines Screen U Methamphetamines Scrn U Marijuana (THC) Screen 06/12/21 06/12/21 06/12/21 03:10 05:08 05:58 WBC Neutrophils # Lymphocytes # ABG pH 7.10 L* 7.27 L ABG pCO2 78 H* 51 H ABG pO2 114 H 324 H ABG Total CO2 27 H 25 H ABG O2 Saturation 99.6 H Sodium Chloride Carbon Dioxide Glucose Plasma Lactic Acid Paulo Calcium Phosphorus AST ALT Total Protein Albumin Urine Ketones Ur Leukocyte Esterase Urine Bacteria Urine Mucus Ur Amphetamines Screen Detected H U Methamphetamines Scrn Detected H U Marijuana (THC) Screen Detected H 06/12/21 06/12/21 06/12/21 06:05 06:05 09:25 WBC Neutrophils # 7.9 H Lymphocytes # ABG pH ABG pCO2 ABG pO2 ABG Total CO2 ABG O2 Saturation Sodium Chloride 110 H Carbon Dioxide Glucose Plasma Lactic Acid Paulo Calcium 7.5 L Phosphorus 4.8 H AST 147 H ALT 111 H Total Protein 6.1 L Albumin 2.9 L Urine Ketones 1+ H Ur Leukocyte Esterase Trace H Urine Bacteria Rare H Urine Mucus Rare H Ur Amphetamines Screen U Methamphetamines Scrn U Marijuana (THC) Screen Assessment and Plan Assessment: * Altered mental status, likely due to hypoxic encephalopathy. Patient's oxygen saturation documented at the scene was < 50%. Patient at present showing meaningful clinical response as mentioned above in examination section. * Polysubstance abuse. Urine drug screen positive for marijuana, amphetamines and methamphetamines. * Ventilator-dependent respiratory failure. Possible aspiration pneumonia. Plan: * Patient is showing definite meaningful clinical response. He squeezed both hands equally, around 4/5 bilaterally. Patient's examination is relatively nonfocal. * Neurology will continue to follow. * Medical management as per ICU/IM. * EEG in the morning. * Dr. Earl Conley resume neurology service in the morning. * Thank you for the consult.
[2021-06-12 12:24] LABS: Glucose,Whole Blood 180 mg/dL (75-99)
--- NOTE | 2021-06-12 14:35 | P.PCN ---
Date of Procedure: 06/12/21 Preoperative Diagnosis: Acute drug overdose Postoperative Diagnosis: Acute drug overdose Procedure(s) Performed: Left radial arterial line insertion Anesthesia: local Surgeon: Ya Houston Estimated Blood Loss (ml): 0 Condition: critical Disposition: ICU Operative Findings: Arterial line Indication: Hemodynamic monitoring. A time-out was completed verifying correct patient, procedure, site, positioning, and implant(s) or special equipment if applicable. Allens test was performed to ensure adequate perfusion. The patients left wrist was prepped and draped in sterile fashion. 1% Lidocaine was used to anesthetize the area. An 18G Arrow arterial line was introduced into the right radial artery. The catheter was threaded over the guide wire and the needle was removed with appropriate pulsatile blood return. Blood loss was minimal. The catheter was then sutured in place to the skin and a sterile dressing applied. Perfusion to the extremity distal to the point of catheter insertion was checked and found to be adequate. The patient tolerated the procedure well and there were no complications.
--- NOTE | 2021-06-12 15:51 | P.PN ---
Subjective Progress Note Date: 06/12/21 Patient seen and examined. No acute events overnight. Patient intubated. Rate of 28, Tidal volume 450, FiO2 50%, PEEP of 5. On propofol for sedation. No nursing concerns. Objective - Vital Signs Vital signs: Vital Signs Temp 98.7 F 06/12/21 12:00 Pulse 89 06/12/21 15:00 Resp 28 H 06/12/21 15:00 BP 102/71 06/12/21 15:00 Pulse Ox 100 06/12/21 15:00 Intake & Output 06/11/21 06/12/21 06/12/21 18:59 06:59 18:59 Intake Total 80.012 701.063 Output Total 530 Balance 80.012 171.063 Weight 74.253 kg Intake: IV 75 675 Sodium Chloride 0.9% 75 75 Sodium Chloride 0.9% 1, 600 000 ml @ 75 mls/hr IV . [id number] [facility] Rx#:[id number] Intake, IV Titration 5.012 26.063 Amount propofoL 1,000 mg In 26.063 Empty Bag 1 bag @ 35 MCG/ KG/MIN 15.593 mls/hr IV . [id number] [facility] Rx#:[id number] propofoL 1,000 mg In 5.012 Empty Bag 1 bag @ 5 MCG/ KG/MIN 2.228 mls/hr IV . Q24H [facility] Rx#:[id number] Output: Urine 530 Other: Voiding Method Indwelling Catheter ABP, PAP, CO, CI - Last Documented Arterial Blood Pressure 76/50 - Exam General: [non toxic], [no distress], [appears at stated age] Derm: [warm], [dry] Head: [atraumatic], [normocephalic], [orogastric and orotracheal tube in place] Eyes: [EOMI], [no lid lag], [anicteric sclera] Mouth: [no lip lesion], [mucus membranes moist] Cardiovascular: [S1S2 reg], [no murmur], [positive posterior tibial pulse see ateral], Lungs: [CTA bilateral], [scattered rhonchi bilaterally] , [no accessory muscle use] Abdominal: [soft], [no guarding], [no appreciable organomegaly] Ext: [no gross muscle atrophy], [no edema], [no contractures] Neuro: [Unable to be done] Psych: [Unable to be done] - Labs CBC & Chem 7: 06/12/21 06:05 06/12/21 06:05 Labs: Abnormal Lab Results - Last 24 Hours (Table) 06/12/21 06/12/21 06/12/21 Range/Units 03:07 03:07 03:07 WBC 14.8 H (3.8-10.6) k/uL Neutrophils # (1.3-7.7) k/uL Lymphocytes # 8.7 H (1.0-4.8) k/uL ABG pH (7.35-7.45) ABG pCO2 (35-45) mmHg ABG pO2 (83-108) mmHg ABG Total CO2 (19-24) mmol/L ABG O2 Saturation (94-97) % Sodium 136 L (137-145) mmol/L Chloride (98-107) mmol/L Carbon Dioxide 19 L (22-30) mmol/L Glucose 149 H (74-99) mg/dL POC Glucose (mg/dL) (75-99) mg/dL Plasma Lactic Acid Paulo 4.5 H* (0.7-2.0) mmol/L Calcium (8.4-10.2) mg/dL Phosphorus (2.5-4.5) mg/dL AST 205 H (17-59) U/L ALT 134 H (4-49) U/L Total Protein (6.3-8.2) g/dL Albumin (3.5-5.0) g/dL Urine Ketones (Negative) Ur Leukocyte Esterase (Negative) Urine Bacteria (None) /hpf Urine Mucus (None) /hpf Ur Amphetamines Screen (NotDetected) U Methamphetamines Scrn (NotDetected) U Marijuana (THC) Screen (NotDetected) 06/12/21 06/12/21 06/12/21 Range/Units 03:10 05:08 05:58 WBC (3.8-10.6) k/uL Neutrophils # (1.3-7.7) k/uL Lymphocytes # (1.0-4.8) k/uL ABG pH 7.10 L* 7.27 L (7.35-7.45) ABG pCO2 78 H* 51 H (35-45) mmHg ABG pO2 114 H 324 H (83-108) mmHg ABG Total CO2 27 H 25 H (19-24) mmol/L ABG O2 Saturation 99.6 H (94-97) % Sodium (137-145) mmol/L Chloride (98-107) mmol/L Carbon Dioxide (22-30) mmol/L Glucose (74-99) mg/dL POC Glucose (mg/dL) (75-99) mg/dL Plasma Lactic Acid Paulo (0.7-2.0) mmol/L Calcium (8.4-10.2) mg/dL Phosphorus (2.5-4.5) mg/dL AST (17-59) U/L ALT (4-49) U/L Total Protein (6.3-8.2) g/dL Albumin (3.5-5.0) g/dL Urine Ketones (Negative) Ur Leukocyte Esterase (Negative) Urine Bacteria (None) /hpf Urine Mucus (None) /hpf Ur Amphetamines Screen Detected H (NotDetected) U Methamphetamines Scrn Detected H (NotDetected) U Marijuana (THC) Screen Detected H (NotDetected) 06/12/21 06/12/21 06/12/21 Range/Units 06:05 06:05 09:25 WBC (3.8-10.6) k/uL Neutrophils # 7.9 H (1.3-7.7) k/uL Lymphocytes # (1.0-4.8) k/uL ABG pH (7.35-7.45) ABG pCO2 (35-45) mmHg ABG pO2 (83-108) mmHg ABG Total CO2 (19-24) mmol/L ABG O2 Saturation (94-97) % Sodium (137-145) mmol/L Chloride 110 H (98-107) mmol/L Carbon Dioxide (22-30) mmol/L Glucose (74-99) mg/dL POC Glucose (mg/dL) (75-99) mg/dL Plasma Lactic Acid Paulo (0.7-2.0) mmol/L Calcium 7.5 L (8.4-10.2) mg/dL Phosphorus 4.8 H (2.5-4.5) mg/dL AST 147 H (17-59) U/L ALT 111 H (4-49) U/L Total Protein 6.1 L (6.3-8.2) g/dL Albumin 2.9 L (3.5-5.0) g/dL Urine Ketones 1+ H (Negative) Ur Leukocyte Esterase Trace H (Negative) Urine Bacteria Rare H (None) /hpf Urine Mucus Rare H (None) /hpf Ur Amphetamines Screen (NotDetected) U Methamphetamines Scrn (NotDetected) U Marijuana (THC) Screen (NotDetected) 06/12/21 06/12/21 Range/Units 11:44 12:22 WBC (3.8-10.6) k/uL Neutrophils # (1.3-7.7) k/uL Lymphocytes # (1.0-4.8) k/uL ABG pH (7.35-7.45) ABG pCO2 (35-45) mmHg ABG pO2 (83-108) mmHg ABG Total CO2 (19-24) mmol/L ABG O2 Saturation (94-97) % Sodium (137-145) mmol/L Chloride (98-107) mmol/L Carbon Dioxide (22-30) mmol/L Glucose (74-99) mg/dL POC Glucose (mg/dL) 69 L 180 H (75-99) mg/dL Plasma Lactic Acid Paulo (0.7-2.0) mmol/L Calcium (8.4-10.2) mg/dL Phosphorus (2.5-4.5) mg/dL AST (17-59) U/L ALT (4-49) U/L Total Protein (6.3-8.2) g/dL Albumin (3.5-5.0) g/dL Urine Ketones (Negative) Ur Leukocyte Esterase (Negative) Urine Bacteria (None) /hpf Urine Mucus (None) /hpf Ur Amphetamines Screen (NotDetected) U Methamphetamines Scrn (NotDetected) U Marijuana (THC) Screen (NotDetected) Assessment and Plan Assessment: Acute metabolic encephalopathy Acute hypoxic respiratory failure in setting of opiate overdose, suspected aspiration Bilateral pulmonary infiltrates -Continue with Zosyn IV -Ventilator bundle manage per spa therapist -IV fluids -Neurology consulted recommends EEG -Admit to medical ICU -Obtain Echo Transaminitis -Avoid hepatotoxic medication -Continue to monitor DVT prophylaxis -Heparin subq The patient is admitted with an anticipated greater than 2 midnight stay for evaluation of respiratory failure CODE STATUS: Full Code Anticipated discharge date: 06/[address]: Home
[2021-06-12 16:42] LABS: Hepatitis A Antibody IgM Nonreactive (Nonreactive); Hepatitis B Core IgM Nonreactive (Nonreactive); Hepatitis C IgG Antibody Reactive (Nonreactive)
[2021-06-12 17:13] LABS: Glucose,Whole Blood 85 mg/dL (75-99)
[2021-06-12 19:46] LABS: Hepatitis B Surface Antigen Confirmed reactive (Nonreactive)
[2021-06-13 00:33] LABS: Glucose,Whole Blood 80 mg/dL (75-99)
[2021-06-13] MEDS: SODIUM CHLORIDE 0.9% 1,000 ML IV SCH ×3 (02:30→10:11)
[2021-06-13] MEDS: PIPERACILLIN-TAZOBACTAM 3.375 GM in SODIUM CHLORIDE 0.9% 100 ML IVPB SCH ×3 (04:20→21:03)
[2021-06-13 04:22] LABS: Basophils # (A) 0.1 k/uL (0-0.2); Basophils % (A) 1 %; Eosinophils # (A) 0.1 k/uL (0-0.7); Eosinophils % (A) 1 %; HCT 39.8 % (39.0-53.0); HGB 12.8 gm/dL (13.0-17.5); Lymphocytes # (A) 2.4 k/uL (1.0-4.8); Lymphocytes % (A) 31 %; MCH 29.2 pg (25.0-35.0); MCHC 32.1 g/dL (31.0-37.0); Mean Platelet Volume 7.5; Monocytes # (A) 0.5 k/uL (0-1.0); Monocytes % (A) 7 %; Neutrophils # (A) 4.5 k/uL (1.3-7.7); Neutrophils % (A) 58 %; Platelet Count 162 k/uL (150-450); RBC 4.38 m/uL (4.30-5.90); RDW 14.6 % (11.5-15.5); WBC 7.8 k/uL (3.8-10.6)
[2021-06-13 04:29] LABS: African American GFR (CKD) >90 (>60 ml/min/1.73 sqM); Anion Gap 5 mmol/L; Blood Urea Nitrogen 16 mg/dL (9-20); Calcium 7.7 mg/dL (8.4-10.2); Carbon Dioxide 22 mmol/L (22-30); Chloride 110 mmol/L (98-107); Glucose 82 mg/dL (74-99); Non-African American GFR(CKD) >90 (>60 ml/min/1.73 sqM); Potassium 3.7 mmol/L (3.5-5.1); Sodium 137 mmol/L (137-145)
[2021-06-13 05:51] LABS: ABG Base Excess -3.2 mmol/L; ABG HCO3 21 mmol/L (21-25); ABG Oxygen Saturation 99.2 % (94-97); ABG PCO2 34 mmHg (35-45); ABG PH 7.41 (7.35-7.45); ABG PO2 166 mmHg (83-108); ABG TCO2 22 mmol/L (19-24); Allen Test Performed? Yes
[2021-06-13 06:14] LABS: Glucose,Whole Blood 75 mg/dL (75-99)
--- NOTE | 2021-06-13 07:26 | XR ---
EXAMINATION TYPE: XR chest 1V portable DATE OF EXAM: 06/13/2021 COMPARISON: 06/12/2021 HISTORY: Tube placement TECHNIQUE: Single frontal view of the chest is obtained. FINDINGS: Endotracheal tube and NG tube are in place. Improved aeration left perihilar region. Mild right perih ilar density persists. The cardiac silhouette size is within normal limits. The osseous structures are intact. IMPRESSION: 1. . Improved aeration left perihilar region. Mild right perihilar density persists.
[2021-06-13] MEDS: FAMOTIDINE 20 MG/2 ML VIAL IV SCH ×2 (08:10→21:04)
[2021-06-13] MEDS: HEPARIN SODIUM,PORCINE/PF 5,000 UNIT/0.5 ML SYRINGE SQ SCH ×3 (08:10→23:40)
[2021-06-13] MEDS: CHLORHEXIDINE GLUCONATE 15 ML CUP MUCOUS MEM SCH (08:10)
[2021-06-13] MEDS: DEXMEDETOMIDINE/0.9% NACL(PMX) 400 MCG in EMPTY BAG 1 BAG IV SCH (09:11)
--- NOTE | 2021-06-13 09:23 | P.PN ---
Subjective Progress Note Date: 06/13/21 I'm seeing the patient for the first time during this admission. Please refer to Dr. Omalley's note for further details Seems the patient has altered mental status likely due to hypoxic encephalopathy the patient has polysubstance abuse. The patient continues to be intubated on ventilator and is on IV propofol 35mcg/kg/min. Objective - Vital Signs Vital signs: Vital Signs Temp 98.3 F 06/13/21 08:00 Pulse 93 06/13/21 08:00 Resp 28 H 06/13/21 08:00 BP 126/76 06/13/21 08:00 Pulse Ox 100 06/13/21 08:00 Intake & Output 06/12/21 06/13/21 06/13/21 18:59 06:59 18:59 Intake Total 1001.063 995.428 150 Output Total 1005 650 90 Balance -3.937 345.428 60 Weight 74.3 kg Intake: IV 975 825 150 Sodium Chloride 0.9% 75 Sodium Chloride 0.9% 1, 900 825 150 000 ml @ 75 mls/hr IV . [id number] [facility] Rx#:[id number] Intake, IV Titration 26.063 170.428 Amount propofoL 1,000 mg In 26.063 170.428 Empty Bag 1 bag @ 35 MCG/ KG/MIN 15.593 mls/hr IV . Q6H25M [facility] Rx#:[id number] Output: Gastric Drainage 300 150 Urine 705 500 90 Other: Voiding Method Indwelling Catheter Indwelling Catheter ABP, PAP, CO, CI - Last Documented Arterial Blood Pressure 166/79 - Exam GENERAL: The patient is lying in bed and is not in acute distress. LUNG: Not labored breathing. Intubated on ventilator. NEUROLOGICAL: Limited since on IV propofol 35mcg/kg/min and intubated. Higher mental function: The patient is drowsy but is awakeable to voice. He is following simple commands (showing thumbs up and wiggling feet). Cranial nerves: The pupils are round, equal and reactive to light. EOM is intact without appreciable nystagmus. No facial weakness. Is breathing over the vent. Motor: The strength is hard to assess. But moving upper and lower distal a ntigravity. Normal tone and bulk. - Labs CBC & Chem 7: 06/13/21 03:54 06/13/21 03:54 Labs: Abnormal Lab Results - Last 24 Hours (Table) 06/12/21 06/12/21 06/12/21 Range/Units 06:05 09:25 11:44 Hgb (13.0-17.5) gm/dL ABG pCO2 (35-45) mmHg ABG pO2 (83-108) mmHg ABG O2 Saturation (94-97) % Chloride (98-107) mmol/L Creatinine (0.66-1.25) mg/dL POC Glucose (mg/dL) 69 L (75-99) mg/dL Calcium (8.4-10.2) mg/dL Urine Ketones 1+ H (Negative) Ur Leukocyte Esterase Trace H (Negative) Urine Bacteria Rare H (None) /hpf Urine Mucus Rare H (None) /hpf Hep Bs Antigen Confirmed reactive A (Nonreactive) Hep C IgG Ab Reactive A (Nonreactive) 06/12/21 06/13/21 06/13/21 Range/Units 12:22 03:54 03:54 Hgb 12.8 L (13.0-17.5) gm/dL ABG pCO2 (35-45) mmHg ABG pO2 (83-108) mmHg ABG O2 Saturation (94-97) % Chloride 110 H (98-107) mmol/L Creatinine 0.65 L (0.66-1.25) mg/dL POC Glucose (mg/dL) 180 H (75-99) mg/dL Calcium 7.7 L (8.4-10.2) mg/dL Urine Ketones (Negative) Ur Leukocyte Esterase (Negative) Urine Bacteria (None) /hpf Urine Mucus (None) /hpf Hep Bs Antigen (Nonreactive) Hep C IgG Ab (Nonreactive) 06/13/21 Range/Units 05:48 Hgb (13.0-17.5) gm/dL ABG pCO2 34 L (35-45) mmHg ABG pO2 166 H (83-108) mmHg ABG O2 Saturation 99.2 H (94-97) % Chloride (98-107) mmol/L Creatinine (0.66-1.25) mg/dL POC Glucose (mg/dL) (75-99) mg/dL Calcium (8.4-10.2) mg/dL Urine Ketones (Negative) Ur Leukocyte Esterase (Negative) Urine Bacteria (None) /hpf Urine Mucus (None) /hpf Hep Bs Antigen (Nonreactive) Hep C IgG Ab (Nonreactive) Microbiology - Last 24 Hours (Table) 06/12/21 07:13 Gram Stain - Preliminary Sputum Sputum Culture - Preliminary 06/12/21 05:17 Blood Culture - Preliminary Blood No Growth after 24 hours 06/12/21 05:00 Blood Culture - Preliminary Blood No Growth after 24 hours Assessment and Plan Assessment: * Altered mental status, likely due to hypoxic encephalopathy and seems due to drug overdose. Patient's oxygen saturation documented at the scene was < 50%. Also component due to medication effect (IV Propofol)---mentation improving. * Polysubstance abuse. Urine drug screen positive for marijuana, amphetamines and methamphetamines. * Ventilator-dependent respiratory failure. Possible aspiration pneumonia. * Acute hepatic dysfunction elevated AST and ALT. Possibly due to drug overdose as well as underlying hepatitis C Plan: * Patient is showing definite meaningful clinical response. Patient's examination is relatively nonfocal at this time but once off sedation will have better neurological examination.. * EEG in the morning. * I ordered ammonia level. If the ammonia level was elevated with defer the management to the primary and ICU team. * Medical management as per ICU/IM. * Neurology will continue to follow. The plan was discussed with ICU team and patient's nurse. Earl Conley M.D. Neuro-hospitalist Time with Patient: Less than 30
--- NOTE | 2021-06-13 10:26 | ECHOF ---
Referral Reason:pulmonary edema MEASUREMENTS -------- HEIGHT: 170.2 cm WEIGHT: 73.9 kg BP: 129/63 RVIDd: 2.4 cm (< 3.3) IVSd: 0.9 cm (0.6 - 1.1) LVIDd: 3.7 cm (3.9 - 5.3) LVPWd: 0.9 cm (0.6 - 1.1) IVSs: 1.6 cm LVIDs: 2.0 cm LVPWs: 1.9 cm LAESV Index (A-L): 13.97 ml/m Ao Diam: 2.6 cm (2.0 - 3.7) AV Cusp: 1.2 cm (1.5 - 2.6) LA Diam: 2.6 cm (2.7 - 3.8) MV EXCURSION: 13.970 mm (> 18.000) MV EF SLOPE: 76 mm/s (70 - 150) EPSS: 0.3 cm MV E Patel: 0.87 m/s MV DecT: 120 ms MV A Patel: 0.74 m/s MV E/A Ratio: 1.18 AR PHT: 614 ms RAP: 5.00 mmHg RVSP: 10.02 mmHg FINDINGS -------- This was a technically good study. The left ventricular size is normal. Left ventricular wall thickness is normal. Overall left vent ricular systolic function is normal with, an EF between 60 - 65 %. The diastolic filling pattern is normal for the age of the patient 8.66. The right ventricle is normal in size. The left atrial size is normal. Normal LA size by volume 22+/-6 ml/m2. The right atrial size is normal. The aortic valve is trileaflet and appears structurally normal. There is mild aortic regurgitation. The mitral valve is normal. The mitral valve leaflets are mildly thickened. No mitral regurgitati on. The tricuspid valve appears structurally normal. Mild tricuspid regurgitation present. Right vent ricular systolic pressure is normal at < 35 mmHg. There is no pulmonic regurgitation present. The aortic root size is normal. Normal inferior vena cava with normal inspiratory collapse consistent with estimated right atrial pre ssure of 5 mmHg. There is no pericardial effusion. CONCLUSIONS -------- 1. The left ventricular size is normal. 2. Left ventricular wall thickness is normal. 3. Overall left ventricular systolic function is normal with, an EF between 60 - 65 %. 4. The diastolic filling pattern is normal for the age of the patient 8.66 5. There is mild aortic regurgitation. 6. The mitral valve leaflets are mildly thickened. 7. No mitral regurgitation. 8. Mild tricuspid regurgitation present. 9. There is no pericardial effusion. CAROUSEL OPERATOR: Alis Marroquin RDCS
[2021-06-13 11:33] LABS: ABG Base Excess -3.9 mmol/L; ABG HCO3 21 mmol/L (21-25); ABG Oxygen Saturation 99.3 % (94-97); ABG PCO2 36 mmHg (35-45); ABG PH 7.38 (7.35-7.45); ABG PO2 162 mmHg (83-108); ABG TCO2 22 mmol/L (19-24)
--- NOTE | 2021-06-13 11:45 | P.PN ---
Subjective Progress Note Date: 06/13/21 Principal diagnosis: Acute hypoxic referral is failure secondary to drug overdose 45-year-old male patient who came into the emergency department as the patient was found to be unresponsive and he has history of substance abuse. It was suspected that the patient had a drug overdose. The patient apparently has history of heroin abuse and he was found by friends to be unresponsive. There friends were apparently doing CPR when the EMS arrived to the scene. The patient was given Narcan and this made him more alert. However, following that, he started having significant respiratory distress, he had a bout of emesis and vomiting and he was intubated on the scene. The patient following that was brought into the emergency department. Noted the patient had a urine drug s creen the emergency that showed positive amphetamine, methamphetamine, marijuana. There was no opiates. The patient was intubated and he was having copious amount of secretions that seemed to be gastric in nature. The chest x- ray post intubation showed evidence of pulmonary edema with upper lobe predominance and the follow-up chest x-ray from today still showing perihilar infiltrates more so in the upper lobes and this is improved compared to yesterday. This morning, the patient is on propofol at 75 mg/kg per minute. The patient received a total of 1 L of IV fluids in the emergency department and the patient is currently on normal saline at the rate of 75 mL an hour. He is currently on assist control mode at the rate of 28 with a tidal volume of 450 and FiO2 of 50% with a PEEP of 5. Note that his initial blood gases post intubation showed a pH of 7.1 with a pCO2 of 78 and pO2 of 114. Subsequent blood gases showed a pH of 7.27 with a pCO2 of 51 and pO2 of 324 and for that reason the FiO2 has been drop down to 50%. The lactic acid level was at 4.7 dropped down to 1.7. Alcohol level was negative. The patient's white cell count was at 10.5 with a hemoglobin of 14 and platelet count 194. CAT scan of the brain was negative. BN is at 20 with a creatinine of 0.7. Sodium is at 139. Potassium level is at 4.5. AST is at 147, ALT is at 111. The patient did not have any seizure activity. He grimaces to painful stimulation on today's evaluation. UA is showing + ketone otherwise negative. No other information is available from this patient. The patient is currently on IV Zosyn. The patient is on no pressors for now Patient was evaluated today on 06/13/21, patient remains intubated and mechanically ventilated, he is on assist control rate of 28th of volume 450 FiO2 50% and PEEP of 5. ABG showed a pO2 of 166 pCO2 of 34 pH of 7.41, cut down his FiO2 down to 40% and increased his flow rate to 70 L/m from 60 L/m. Patient remains on propofol at 35 mcg/kg/m, IV fluid at 75 mL/h, patient seems to be arousable, he follows simple instructions although he is still on propofol. His chest x-ray is suggestive of right sided upper lobe infiltrate, consistent with aspiration pneumonia, improving compared to the chest x-ray on admission. His drug screen was positive for amphetamine, methamphetamine, and marijuana. Negative for opiates. Patient remains on Zosyn for presumptive aspiration pneumonia. His labs today. Were relatively unremarkable including CBC and basic metabolic profile. Hence I plan to possibly wean and extubate the patient in the next few hours. Objective - Vital Signs Vital signs: Vital Signs Temp 98.3 F 06/13/21 08:00 Pulse 81 06/13/21 11:00 Resp 28 H 06/13/21 11:00 BP 147/90 06/13/21 10:00 Pulse Ox 100 06/13/21 11:00 Intake & Output 06/12/21 06/13/21 06/13/21 18:59 06:59 18:59 Intake Total 1001.063 995.428 496.712 Output Total 1005 650 265 Balance -3.937 345.428 231.712 Weight 74.3 kg Intake: IV 975 825 375 Sodium Chloride 0.9% 75 Sodium Chloride 0.9% 1, 900 825 375 000 ml @ 75 mls/hr IV . [id number] [facility] Rx#:[id number] Intake, IV Titration .3 170.428 121.712 Amount Dexmedetomidine/0.9% NaCl 15.697 (Pmx) 400 mcg In Empty Bag 1 bag @ 0.2 MCG/KG/HR 3.715 mls/hr IV .Q24H [facility] Rx#:[id number] propofoL 1,000 mg In 26.063 170.428 106.015 Empty Bag 1 bag @ 35 MCG/ KG/MIN 15.593 mls/hr IV . Q6H25M [facility] Rx#:[id number] Output: Gastric Drainage 300 150 Urine 705 500 265 Other: Voiding Method Indwelling Catheter Indwelling Catheter ABP, PAP, CO, CI - Last Documented Arterial Blood Pressure 139/74 - Exam Physical Exam: Revealed a 45-year-old white male in no distress. Head: Atraumatic, normocephalic. Endotracheal tube and orogastric tube are intact. HEENT:[Neck is supple.] [No neck masses.] [No thyromegaly.] [No JVD.] Chest: [Symmetrical chest expansion minimal crackles at the right base. Cardiac Exam: [Normal S1 and S2, no S3 gallop, no murmur.] Abdomen: [Soft, nontender, no megaly, no rebound, no guarding, normal bowel sounds.] Extremities: [No clubbing, no edema, no cyanosis.] Neurological Exam: Alert and oriented 3. [No focal neurologic deficit.] Psychiatric: Normal mood, affect and normal mental status examination. Skin: No rashes, multiple tattoos all over. - Labs CBC & Chem 7: 06/13/21 03:54 06/13/21 03:54 Labs: Abnormal Lab Results - Last 24 Hours (Table) 06/12/21 06/12/21 06/12/21 Range/Units 06:05 11:44 12:22 Hgb (13.0-17.5) gm/dL ABG pCO2 (35-45) mmHg ABG pO2 (83-108) mmHg ABG O2 Saturation (94-97) % Chloride (98-107) mmol/L Creatinine (0.66-1.25) mg/dL POC Glucose (mg/dL) 69 L 180 H (75-99) mg/dL Calcium (8.4-10.2) mg/dL Hep Bs Antigen Confirmed reactive A (Nonreactive) Hep C IgG Ab Reactive A (Nonreactive) 06/13/21 06/13/21 06/13/21 Range/Units 03:54 03:54 05:48 Hgb 12.8 L (13.0-17.5) gm/dL ABG pCO2 34 L (35-45) mmHg ABG pO2 166 H (83-108) mmHg ABG O2 Saturation 99.2 H (94-97) % Chloride 110 H (98-107) mmol/L Creatinine 0.65 L (0.66-1.25) mg/dL POC Glucose (mg/dL) (75-99) mg/dL Calcium 7.7 L (8.4-10.2) mg/dL Hep Bs Antigen (Nonreactive) Hep C IgG Ab (Nonreactive) 06/13/21 Range/Units 11:25 Hgb (13.0-17.5) gm/dL ABG pCO2 (35-45) mmHg ABG pO2 162 H (83-108) mmHg ABG O2 Saturation 99.3 H (94-97) % Chloride (98-107) mmol/L Creatinine (0.66-1.25) mg/dL POC Glucose (mg/dL) (75-99) mg/dL Calcium (8.4-10.2) mg/dL Hep Bs Antigen (Nonreactive) Hep C IgG Ab (Nonreactive) Microbiology - Last 24 Hours (Table) 06/12/21 07:13 Gram Stain - Preliminary Sputum Sputum Culture - Preliminary 06/12/21 05:17 Blood Culture - Preliminary Blood No Growth after 24 hours 06/12/21 05:00 Blood Culture - Preliminary Blood No Growth after 24 hours Assessment and Plan Assessment: Impression: Acute hypoxic failure secondary to multiple drugs overdose. Requiring intubation and mechanical ventilation. Acute aspiration pneumonia Acute hepatic dysfunction with elevated AST and ALP, etiology is yet to be determined. Recommendation: Continue ventilatory support for now. Wean and discontinue propofol. Check ABG on pressure support of 10 and CPAP. Continue antibiotics/Zosyn. Continue GI and DVT prophylaxis. Will likely wean and extubate later this afternoon, Prognosis remains relatively guarded. Critical care time is over 30 minutes, we'll continue to follow Time with Patient: Greater than 30
[2021-06-13 11:51] LABS: Glucose,Whole Blood 63 mg/dL (75-99)
[2021-06-13] MEDS ORDERED: DEXTROSE 50% SYRINGE 50 ML IVP STA (12:00)
[2021-06-13 12:20] VITALS: BMI 25.6
[2021-06-13 12:35] LABS: Glucose,Whole Blood 157 mg/dL (75-99)
[2021-06-13 14:30] LABS: Allen Test Performed? No
--- NOTE | 2021-06-13 14:42 | P.PN ---
Subjective Progress Note Date: 06/13/21 patient seen in the ICU, no acute events overnight, patient on 4L nasal canula. He denies any shortness of breath, no chest pain, no fevers or chills. He has not ambulated yet, but is moving all extremities with no difficulty. Currently on Precedex drip which is being titrated down Objective - Vital Signs Vital signs: Vital Signs Temp 98 F 06/13/21 12:00 Pulse 89 06/13/21 14:00 Resp 20 06/13/21 14:00 BP 116/72 06/13/21 14:00 Pulse Ox 98 06/13/21 14:00 Intake & Output 06/12/21 06/13/21 06/13/21 18:59 06:59 18:59 Intake Total 1001.063 995.428 832.671 Output Total 1005 650 615 Balance -3.937 345.428 217.671 Weight 74.3 kg 74.3 kg Intake: IV 975 825 600 Sodium Chloride 0.9% 75 Sodium Chloride 0.9% 1, 900 825 600 000 ml @ 75 mls/hr IV . [id number] [facility] Rx#:[id number] Intake, IV Titration 26.063 170.428 232.671 Amount Dexmedetomidine/0.9% NaCl 26.656 (Pmx) 400 mcg In Empty Bag 1 bag @ 0.2 MCG/KG/HR 3.715 mls/hr IV .Q24H [facility] Rx#:[id number] Piperacillin-Tazobactam 3 100 .375 gm In Sodium Chloride 0.9% 100 ml @ 25 mls/hr IVPB Q8H [facility] Rx#: [id number] propofoL 1,000 mg In 26.063 170.428 106.015 Empty Bag 1 bag @ 35 MCG/ KG/MIN 15.593 mls/hr IV . Q6H25M [facility] Rx#:[id number] Output: Gastric Drainage 300 150 200 Urine 705 500 415 Other: Voiding Method Indwelling Catheter Indwelling Catheter ABP, PAP, CO, CI - Last Documented Arterial Blood Pressure 133/70 - Constitutional General appearance: Present: average body habitus, cooperative - EENT Eyes: Present: EOMI, PERRLA - Respiratory Respiratory: right: diminished, negative: wheezing - Cardiovascular Rhythm: regular Heart sounds: normal: S1, S2 - Gastrointestinal General gastrointestinal: Present: normal bowel sounds - Neurologic Neurologic: Present: CNII-XII intact. Absent: focal deficits - Musculoskeletal Musculoskeletal: Present: strength equal bilaterally. Absent: generalized weakness - Psychiatric Psychiatric: Present: A&O x's 3, appropriate affect - Labs CBC & Chem 7: 06/13/21 03:54 06/13/21 03:54 Labs: Abnormal Lab Results - Last 24 Hours (Table) 06/12/21 06/13/21 06/13/21 Range/Units 06:05 03:54 03:54 Hgb 12.8 L (13.0-17.5) gm/dL ABG pCO2 (35-45) mmHg ABG pO2 (83-108) mmHg ABG O2 Saturation (94-97) % Chloride 110 H (98-107) mmol/L Creatinine 0.65 L (0.66-1.25) mg/dL POC Glucose (mg/dL) (75-99) mg/dL Calcium 7.7 L (8.4-10.2) mg/dL Hep Bs Antigen Confirmed reactive A (Nonreactive) Hep C IgG Ab Reactive A (Nonreactive) 06/13/21 06/13/21 06/13/21 Range/Units 05:48 11:25 11:49 Hgb (13.0-17.5) gm/dL ABG pCO2 34 L (35-45) mmHg ABG pO2 166 H 162 H (83-108) mmHg ABG O2 Saturation 99.2 H 99.3 H (94-97) % Chloride (98-107) mmol/L Creatinine (0.66-1.25) mg/dL POC Glucose (mg/dL) 63 L (75-99) mg/dL Calcium (8.4-10.2) mg/dL Hep Bs Antigen (Nonreactive) Hep C IgG Ab (Nonreactive) 06/13/21 Range/Units 12:33 Hgb (13.0-17.5) gm/dL ABG pCO2 (35-45) mmHg ABG pO2 (83-108) mmHg ABG O2 Saturation (94-97) % Chloride (98-107) mmol/L Creatinine (0.66-1.25) mg/dL POC Glucose (mg/dL) 157 H (75-99) mg/dL Calcium (8.4-10.2) mg/dL Hep Bs Antigen (Nonreactive) Hep C IgG Ab (Nonreactive) Microbiology - Last 24 Hours (Table) 06/12/21 07:13 Gram Stain - Preliminary Sputum Sputum Culture - Preliminary 06/12/21 05:17 Blood Culture - Preliminary Blood No Growth after 24 hours 06/12/21 05:00 Blood Culture - Preliminary Blood No Growth after 24 hours Assessment and Plan Assessment: Acute metabolic encephalopathy -Secondary to opiate overdose and hypoxia -Improving, patient was extubated -Currently on Precedex drip which is being titrated down -No signs of focal neurological deficits -Initiate PT and OT Acute hypoxic respiratory failure in setting of opiate overdose Improving Currently on 4 L of oxygen Bilateral pulmonary infiltrates May change antibiotics Unasyn Transaminitis -Positive for hepatitis C and hepatitis B -Patient has been counseled on importance of abstaining from IV drug abuse -We'll need outpatient follow-up -Avoid hepatotoxic medication -Continue to monitor DVT prophylaxis -Heparin subq Anticipated transfer out of the ICU within 24 hours if Precedex drip was discontinued. Time with Patient: Less than 30
--- NOTE | 2021-06-13 15:14 | EEG ---
ELECTROENCEPHALOGRAM REPORT DATE OF SERVICE: 06/13/2021. CLINICAL HISTORY: This is a 45-year-old gentleman with altered mental status. The video EEG is obtained to evaluate for seizure epileptiform activity. Relevant medications: The patient is on IV propofol. EEG TYPE: A routine 21-channel EEG is performed with video using the 10/20 electrode placement system. DESCRIPTION: The patient is intubated on a ventilator. Only wakefulness is obtained. During awake state, the background consists of low to moderate voltage of 9.5 to 10 hertz activity. There is no physiological sleep architecture seen. There is no focal slowing. Interictal and ictal is none. ACTIVATION PROCEDURE: Photic stimulation is performed and no photic drive noted. There is no abnormality during the photic stimulation. Hyperventilation is not performed. CLINICAL INTERPRETATION: This is a normal routine EEG. There is no focal slowing, epileptiform discharges or seizure on the EEG. Clinical correlation is recommended. SUSANA / CAMILA: [id number] / MTDD
[2021-06-13 16:20] VITALS: BP 139/83
[2021-06-13 22:06] LABS: Glucose,Whole Blood 125 mg/dL (75-99)
[2021-06-14 05:22] LABS: Basophils % (A) 0 %; Eosinophils # (A) 0.2 k/uL (0-0.7); Eosinophils % (A) 3 %; HCT 36.6 % (39.0-53.0); Lymphocytes # (A) 2.1 k/uL (1.0-4.8); Lymphocytes % (A) 33 %; MCH 29.2 pg (25.0-35.0); MCHC 32.7 g/dL (31.0-37.0); MCV 89.3 fL (80.0-100.0); Mean Platelet Volume 7.6; Monocytes # (A) 0.5 k/uL (0-1.0); Monocytes % (A) 8 %; Neutrophils # (A) 3.4 k/uL (1.3-7.7); Neutrophils % (A) 53 %; Platelet Count 166 k/uL (150-450); RDW 14.5 % (11.5-15.5); WBC 6.4 k/uL (3.8-10.6)
[2021-06-14 05:36] LABS: African American GFR (CKD) >90 (>60 ml/min/1.73 sqM); Anion Gap 4 mmol/L; Blood Urea Nitrogen 6 mg/dL (9-20); Calcium 7.4 mg/dL (8.4-10.2); Carbon Dioxide 22 mmol/L (22-30); Chloride 109 mmol/L (98-107); Glucose 96 mg/dL (74-99); Non-African American GFR(CKD) >90 (>60 ml/min/1.73 sqM); Potassium 3.4 mmol/L (3.5-5.1); Sodium 135 mmol/L (137-145)
[2021-06-14] MEDS ORDERED: Potassium Replacement Protocol 1 EACH MISC MISCELLANE PRN ×2 (06:43→07:25)
[2021-06-14 07:01] LABS: Glucose,Whole Blood 102 mg/dL (75-99)
[2021-06-14] MEDS: PIPERACILLIN-TAZOBACTAM 3.375 GM in SODIUM CHLORIDE 0.9% 100 ML IVPB SCH (07:14)
[2021-06-14] MEDS: SODIUM CHLORIDE 0.9% 1,000 ML IV SCH (07:15)
--- NOTE | 2021-06-14 08:13 | XR ---
EXAMINATION TYPE: XR chest 1V portable DATE OF EXAM: 06/14/2021 Comparison: 06/13/2021 Clinical History: 45-year-old male Tube placement Findings: ET tube and NG tube have been removed in the interval. Heart upper limits of normal in size. Hyperinf lation. Mild interstitial prominence. Blunted left costophrenic angle. Impression: COPD. Interval extubation. New blunting of the left costophrenic angle suggests underlying trace pleu ral effusion with adjacent atelectasis and/or consolidation.
[2021-06-14] MEDS: FAMOTIDINE 20 MG/2 ML VIAL IV SCH (08:30)
[2021-06-14] MEDS: HEPARIN SODIUM,PORCINE/PF 5,000 UNIT/0.5 ML SYRINGE SQ SCH (08:30)
[2021-06-14] MEDS: POTASSIUM CHLORIDE ER 20 MEQ TAB.ER PO SCH ×2 (08:30→10:03)
[2021-06-14 08:56] VITALS: TEMP 97.8
[2021-06-14 09:25] VITALS: PULSE 80; RESP 22
[2021-06-14] MEDS: DEXMEDETOMIDINE/0.9% NACL(PMX) 400 MCG in EMPTY BAG 1 BAG IV SCH (09:27)
[2021-06-14] MEDS ORDERED: AMOXIC-POT CLAV 875-125MG 1 EACH TAB PO SCH (09:30)
--- NOTE | 2021-06-14 11:52 | P.PN ---
Subjective Progress Note Date: 06/14/21 The patient is seen at bedside. He was extubated. Patient stated he is doing drastically better. He denies of any weakness, numbness, headache, visual disturbance. He feels back to baseline. He does admit that he uses Heroin, Meth. He does smoke tobacco. Objective - Vital Signs Vital signs: Vital Signs Temp 97.8 F 06/14/21 08:00 Pulse 80 06/14/21 09:00 Resp 22 06/14/21 09:00 BP 139/83 06/13/21 17:00 Pulse Ox 92 L 06/14/21 09:00 Intake & Output 06/13/21 06/14/21 06/14/21 18:59 06:59 18:59 Intake Total 7858.628 8493 345 Output Total 1050 650 875 Balance 497.671 995 -530 Weight 74.3 kg 74.6 kg Intake: IV 975 825 225 Sodium Chloride 0.9% 1, 975 825 225 000 ml @ 75 mls/hr IV . [id number] RACHID Rx#:[id number] Intake, IV Titration 232.671 100 Amount Dexmedetomidine/0.9% NaCl 26.656 (Pmx) 400 mcg In Empty Bag 1 bag @ 0.2 MCG/KG/HR 3.715 mls/hr IV .Q24H RACHID Rx#:[id number] Piperacillin-Tazobactam 3 100 100 .375 gm In Sodium Chloride 0.9% 100 ml @ 25 mls/hr IVPB Q8H RACHID Rx#: [id number] propofoL 1,000 mg In 106.015 Empty Bag 1 bag @ 35 MCG/ KG/MIN 15.593 mls/hr IV . Q6H25M RACHID Rx#:[id number] Oral 340 720 120 Output: Gastric Drainage 200 Urine 850 650 875 Other: Voiding Method Indwelling Catheter Indwelling Catheter Indwelling Catheter # Bowel Movements 1 1 ABP, PAP, CO, CI - Last Documented Arterial Blood Pressure 141/77 - Exam GENERAL: The patient is lying in bed and is not in acute distress. NEUROLOGICAL: Higher mental function: The patient is awake, alert, oriented to self, place and time. Patient is following commands. No aphasia and no neglect. Cranial nerves: The pupils are round, equal and reactive to light. Visual hensley are full to confrontation throughout. Extraocular movement is intact no nystagmus is noted. Facial sensation is normal to touch throughout. The facial strength is normal throughout. Tongue is midline and moved [id number] wit hout any difficulty. No dysarthria is noted. Shoulder shrug is normal bilaterally. Motor: Gait is normal with normal arm swings. The strength is 5 over 5 throughout. Normal tone and bulk. Sensation: Normal to touch throughout. - Labs CBC & Chem 7: 06/14/21 05:00 06/14/21 05:00 Labs: Abnormal Lab Results - Last 24 Hours (Table) 06/13/21 06/13/21 06/13/21 Range/Units 11:49 12:33 22:04 RBC (4.30-5.90) m/uL Hgb (13.0-17.5) gm/dL Hct (39.0-53.0) % Sodium (137-145) mmol/L Potassium (3.5-5.1) mmol/L Chloride (98-107) mmol/L BUN (9-20) mg/dL Creatinine (0.66-1.25) mg/dL POC Glucose (mg/dL) 63 L 157 H 125 H (75-99) mg/dL Calcium (8.4-10.2) mg/dL 06/14/21 06/14/21 06/14/21 Range/Units 05:00 05:00 07:00 RBC 4.10 L (4.30-5.90) m/uL Hgb 12.0 L (13.0-17.5) gm/dL Hct 36.6 L (39.0-53.0) % Sodium 135 L (137-145) mmol/L Potassium 3.4 L (3.5-5.1) mmol/L Chloride 109 H (98-107) mmol/L BUN 6 L (9-20) mg/dL Creatinine 0.59 L (0.66-1.25) mg/dL POC Glucose (mg/dL) 102 H (75-99) mg/dL Calcium 7.4 L (8.4-10.2) mg/dL Microbiology - Last 24 Hours (Table) 06/12/21 07:13 Gram Stain - Final Sputum Sputum Culture - Final 06/12/21 05:17 Blood Culture - Preliminary Blood No Growth after 48 hours 06/12/21 05:00 Blood Culture - Preliminary Blood No Growth after 48 hours Assessment and Plan Assessment: * Altered mental status, likely due to hypoxic encephalopathy and seems due to drug overdose. Patient's oxygen saturation documented at the scene was < 50%. ----improvd and neurologically back to baseline * Polysubstance abuse. Urine drug screen positive for marijuana, amphetamines and methamphetamines. Patient states he uses Heroin use. * Ventilator-dependent respiratory failure. Possible aspiration pneumonia. * Acute hepatic dysfunction elevated AST and ALT. Possibly due to drug overdose as well as underlying hepatitis C * Tobacco use Plan: * Patient is showing definite meaningful clinical response. Patient's examination is relatively nonfocal at this time but once off sedation will have better neurological examination.. * EEG on 06/13/2021: Normal. * Ammonia level: 11. * Medical management as per ICU/IM. * Patient was counseled on tobacco cessation for 3 minutes. * He was also counseled on polysubstance use cessation for 3 minutes. * From neurological perspective he is back to baseline and no focal deficit. There is no additional work-up needed. The plan was discussed with patient and his nurse. Earl Conley M.D. Neuro-hospitalist Time with Patient: Less than 30
--- NOTE | 2021-06-14 12:03 | P.PN ---
Subjective Progress Note Date: 06/14/21 Principal diagnosis: Acute hypoxic referral is failure secondary to drug overdose 45-year-old male patient who came into the emergency department as the patient was found to be unresponsive and he has history of substance abuse. It was suspected that the patient had a drug overdose. The patient apparently has history of heroin abuse and he was found by friends to be unresponsive. There friends were apparently doing CPR when the EMS arrived to the scene. The patient was given Narcan and this made him more alert. However, following that, he started having significant respiratory distress, he had a bout of emesis and vomiting and he was intubated on the scene. The patient following that was brought into the emergency department. Noted the patient had a urine drug s creen the emergency that showed positive amphetamine, methamphetamine, marijuana. There was no opiates. The patient was intubated and he was having copious amount of secretions that seemed to be gastric in nature. The chest x- ray post intubation showed evidence of pulmonary edema with upper lobe predominance and the follow-up chest x-ray from today still showing perihilar infiltrates more so in the upper lobes and this is improved compared to yesterday. This morning, the patient is on propofol at 75 mg/kg per minute. The patient received a total of 1 L of IV fluids in the emergency department and the patient is currently on normal saline at the rate of 75 mL an hour. He is currently on assist control mode at the rate of 28 with a tidal volume of 450 and FiO2 of 50% with a PEEP of 5. Note that his initial blood gases post intubation showed a pH of 7.1 with a pCO2 of 78 and pO2 of 114. Subsequent blood gases showed a pH of 7.27 with a pCO2 of 51 and pO2 of 324 and for that reason the FiO2 has been drop down to 50%. The lactic acid level was at 4.7 dropped down to 1.7. Alcohol level was negative. The patient's white cell count was at 10.5 with a hemoglobin of 14 and platelet count 194. CAT scan of the brain was negative. BN is at 20 with a creatinine of 0.7. Sodium is at 139. Potassium level is at 4.5. AST is at 147, ALT is at 111. The patient did not have any seizure activity. He grimaces to painful stimulation on today's evaluation. UA is showing + ketone otherwise negative. No other information is available from this patient. The patient is currently on IV Zosyn. The patient is on no pressors for now Patient was evaluated today on 06/13/21, patient remains intubated and mechanically ventilated, he is on assist control rate of 28th of volume 450 FiO2 50% and PEEP of 5. ABG showed a pO2 of 166 pCO2 of 34 pH of 7.41, cut down his FiO2 down to 40% and increased his flow rate to 70 L/m from 60 L/m. Patient remains on propofol at 35 mcg/kg/m, IV fluid at 75 mL/h, patient seems to be arousable, he follows simple instructions although he is still on propofol. His chest x-ray is suggestive of right sided upper lobe infiltrate, consistent with aspiration pneumonia, improving compared to the chest x-ray on admission. His drug screen was positive for amphetamine, methamphetamine, and marijuana. Negative for opiates. Patient remains on Zosyn for presumptive aspiration pneumonia. His labs today. Were relatively unremarkable including CBC and basic metabolic profile. Hence I plan to possibly wean and extubate the patient in the next few hours. Reevaluated today on06/14/21, patient remains in the ICU, he was extubated yesterday uneventfully, patient is now on room air, doing quite well, relatively asymptomatic. Denies any specific symptoms. Will transfer the patient out of the ICU to a regular medical floor, and will need social worker school evaluation for placement, my understanding is that the patient is homeless. CBC is relatively normal electrolytes are normal except for low potassium of 3.4 renal profile is normal patient is on Zosyn, chest x-ray showed dramatic improvement, will discontinue Zosyn and place the patient on Augmentin 875 twice a day for 7 days Objective - Vital Signs Vital signs: Vital Signs Temp 97.8 F 06/14/21 08:00 Pulse 80 06/14/21 09:00 Resp 22 06/14/21 09:00 BP 139/83 06/13/21 17:00 Pulse Ox 92 L 06/14/21 09:00 Intake & Output 06/13/21 06/14/21 06/14/21 18:59 06:59 18:59 Intake Total 7211.708 4874 345 Output Total 1050 650 875 Balance 497.671 995 -530 Weight 74.3 kg 74.6 kg Intake: IV 975 825 225 Sodium Chloride 0.9% 1, 975 825 225 000 ml @ 75 mls/hr IV . [id number] RACHID Rx#:[id number] Intake, IV Titration 232.671 100 Amount Dexmedetomidine/0.9% NaCl 26.656 (Pmx) 400 mcg In Empty Bag 1 bag @ 0.2 MCG/KG/HR 3.715 mls/hr IV .Q24H RACHID Rx#:[id number] Piperacillin-Tazobactam 3 100 100 .375 gm In Sodium Chloride 0.9% 100 ml @ 25 mls/hr IVPB Q8H RACHID Rx#: [id number] propofoL 1,000 mg In 106.015 Empty Bag 1 bag @ 35 MCG/ KG/MIN 15.593 mls/hr IV . Q6H25M RACHID Rx#:[id number] Oral 340 720 120 Output: Gastric Drainage 200 Urine 850 650 875 Other: Voiding Method Indwelling Catheter Indwelling Catheter Indwelling Catheter # Bowel Movements 1 1 ABP, PAP, CO, CI - Last Documented Arterial Blood Pressure 141/77 - Exam Physical Exam: Revealed a 45-year-old white male in no distress. On room air. Head: Atraumatic, normocephalic. HEENT:[Neck is supple.] [No neck masses.] [No thyromegaly.] [No JVD.] Chest: [Symmetrical chest expansion clear throughout. Cardiac Exam: [Normal S1 and S2, no S3 gallop, no murmur.] Abdomen: [Soft, nontender, no megaly, no rebound, no guarding, normal bowel norm nds.] Extremities: [No clubbing, no edema, no cyanosis.] Neurological Exam: Alert and oriented 3. [No focal neurologic deficit.] Psychiatric: Normal mood, affect and normal mental status examination. Skin: No rashes, multiple tattoos all over. - Labs CBC & Chem 7: 06/14/21 05:00 06/14/21 05:00 Labs: Abnormal Lab Results - Last 24 Hours (Table) 06/13/21 06/13/21 06/14/21 Range/Units 12:33 22:04 05:00 RBC 4.10 L (4.30-5.90) m/uL Hgb 12.0 L (13.0-17.5) gm/dL Hct 36.6 L (39.0-53.0) % Sodium (137-145) mmol/L Potassium (3.5-5.1) mmol/L Chloride (98-107) mmol/L BUN (9-20) mg/dL Creatinine (0.66-1.25) mg/dL POC Glucose (mg/dL) 157 H 125 H (75-99) mg/dL Calcium (8.4-10.2) mg/dL 06/14/21 06/14/21 Range/Units 05:00 07:00 RBC (4.30-5.90) m/uL Hgb (13.0-17.5) gm/dL Hct (39.0-53.0) % Sodium 135 L (137-145) mmol/L Potassium 3.4 L (3.5-5.1) mmol/L Chloride 109 H (98-107) mmol/L BUN 6 L (9-20) mg/dL Creatinine 0.59 L (0.66-1.25) mg/dL POC Glucose (mg/dL) 102 H (75-99) mg/dL Calcium 7.4 L (8.4-10.2) mg/dL Microbiology - Last 24 Hours (Table) 06/12/21 07:13 Gram Stain - Final Sputum Sputum Culture - Final 06/12/21 05:17 Blood Culture - Preliminary Blood No Growth after 48 hours 06/12/21 05:00 Blood Culture - Preliminary Blood No Growth after 48 hours Assessment and Plan Assessment: Impression: Acute hypoxic failure secondary to multiple drugs overdose. Requiring intubation and mechanical ventilation. Extubated on 06/13/21, tolerated the extubation well. Acute aspiration pneumonia, on Zosyn will discontinue Zosyn and start patient on Augmentin. Recommendation: Transfer patient out of the ICU to regular medical floor. technical services representative to evaluate. Change Zosyn to Augmentin 875 twice a day for 7 more days. Will continue to follow. Time with Patient: Less than 30
--- NOTE | 2021-06-14 17:11 | P.DS ---
Providers Date of admission: 06/12/21 04:33 Expected date of discharge: 06/14/21 Attending physician: Fátima Naranjo MD Consults: 06/12/21 04:33 Consult Physician Stat Consulting Provider: Ya Houston Consult Reason/Comments: Acute pulmonary edema. Intubation/ventilation Do you want consulting provider notified?: Yes 06/12/21 08:50 Consult Physician Routine Consulting Provider: Gloria Omalley Consult Reason/Comments: unresponsive/anoxic? Do you want consulting provider notified?: Yes Primary care physician: Stated None Hospital Course: Discharge Diagnosis: Unintentional polysubstance overdose Aspiration pneumonia Lactic acidosis Acute Hypercapnic respiratory failure Transaminitis Hepatitis B Hepatitis C Hospital Course: Patient is a 45-year-old male for history of polysubstance abuse and tobacco abuse who was brought in by EMS after he was found unresponsive. He was receiving bystander CPR when EMS arrived they gave him Narcan which made him more alert. He was in severe respiratory distress with episodes of vomiting and he was subsequently intubated. Chest x-ray the ER revealed pulmonary edema. Laboratory analysis was remarkable for white blood cell count 14.8, pH 7.1 on ABG, and lactic acid 4.5. He was started on Zosyn and IV fluids. He was admitted to the ICU for further management. Pulmonary and neurology were consulted. By the morning of 06/13 he was following simple instructions. He was transitioned to Precedex and subsequently extubated. He continued to do well. On the morning of 06/14/21 his up and walking in his room. He is determined stable for discharge home. He will complete an oral course of Augmentin. He was also found to have elevated AST and ALT and ultimately hep B and hep C. Follow-up: [facility] to establish care, Dr. Butler for hepatitis D/C, complete Imaging: No acute intracranial hemorrhage or midline shift Chest x-ray: Pulmonary edema A cardiogram: Ejection fraction 60-65% EEG: Normal Patient seen and examined at bedside. Denies any chest pain, shortness of breath, cough. Feeling well. Has been up and ambulating without difficulty. Vital signs reviewed and stable. General: non toxic, no distress, appears at stated age Derm: warm, dry Head: atraumatic, normocephalic, symmetric Eyes: EOMI, no lid lag, anicteric sclera Mouth: no lip lesion, mucus membranes moist Cardiovascular: S1S2 reg, no murmur, positive posterior tibial pulse bilateral, Lungs: CTA bilateral, no rhonchi, no rales , no accessory muscle use Abdominal: soft, nontender to palpation, no guarding, no appreciable organomegaly Ext: no gross muscle atrophy, no edema, no contractures Neuro: CN II-XI grossly intact, no focal neuro deficits Psych: Alert, oriented, appropriate affect A total of 37 minutes of time were spent preparing this complex discharge summary . Patient Condition at Discharge: Good Plan - Discharge Summary New Discharge Prescriptions: New Amoxic-Pot Clav 875-125Mg [Augmentin 875-125] 1 each PO Q12HR #7 tab Discharge Medication List Amoxic-Pot Clav 875-125Mg [Augmentin 875-125] 1 each PO Q12HR #7 tab 06/14/21 [Rx] Follow up Appointment(s)/Referral(s): Oly Butler MD [STAFF PHYSICIAN] - 07/27/21 11:30 am None,Stated [Primary Care Provider] - 1-2 days [facility] [NON-STAFF] - 06/27/21 10:00 am Patient Instructions/Handouts: Hepatitis C (DC), Hepatitis B (DC) Activity/Diet/Wound Care/Special Instructions: Activity: as tolerated Diet: Regular Discharge/Stand Alone Forms: AA Meetings [facility], Who Do I Call?, Community Resources, Outpatient Counseling Discharge Disposition: HOME SELF-CARE
[2021-06-14] MEDS ORDERED: FAMOTIDINE 20 MG TAB PO SCH (21:00)
== END 2021-06-14 12:30 | disposition home or self-care (01) | DRG 917 ==
LOC: EDBD → EC 02:22 → MERGE 04:33 → 2SICU 04:33
PROVIDERS: ADMIT Internal Medicine; ATTEND Internal Medicine
PROC: 5A1945Z Respiratory Ventilation, 24-96 Consecutive Hours (ICD-10-PCS; principal; 2021-06-12)
PROC: 0BH17EZ Insertion of Endotracheal Airway into Trachea, Via Natural or Artificial Opening (ICD-10-PCS; principal; 2021-06-12)
PROC: 0D9670Z Drainage of Stomach with Drainage Device, Via Natural or Artificial Opening (ICD-10-PCS; 2021-06-12)
PROC: 03HY32Z Insertion of Monitoring Device into Upper Artery, Percutaneous Approach (ICD-10-PCS; 2021-06-12)
PROC: 4A133J1 Monitoring of Arterial Pulse, Peripheral, Percutaneous Approach (ICD-10-PCS; 2021-06-12)
PROC: 4A133B1 Monitoring of Arterial Pressure, Peripheral, Percutaneous Approach (ICD-10-PCS; 2021-06-12)
PROC: 3E0G76Z Introduction of Nutritional Substance into Upper GI, Via Natural or Artificial Opening (ICD-10-PCS; 2021-06-13)
DX: T43.621A Poisoning by amphetamines, accidental (unintentional), initial encounter (principal); J96.01 Acute respiratory failure with hypoxia; J96.02 Acute respiratory failure with hypercapnia; J69.0 Pneumonitis due to inhalation of food and vomit; G93.1 Anoxic brain damage, not elsewhere classified; E87.2 Acidosis; B19.10 Unspecified viral hepatitis B without hepatic coma; F15.10 Other stimulant abuse, uncomplicated; F11.10 Opioid abuse, uncomplicated; K76.89 Other specified diseases of liver; B19.20 Unspecified viral hepatitis C without hepatic coma; F12.10 Cannabis abuse, uncomplicated; F17.210 Nicotine dependence, cigarettes, uncomplicated; Z71.6 Tobacco abuse counseling
CPT/HCPCS: 31500; 36415; 36600; 70450; 71045; 80048; 80053; 80074; 80306; 80320; 81001; 82140; 82805; 83605; 83735; 83880; 84100; 84484; 85025; 87040; 87070; 87205; 93005; 93306; 94002; 94003; 95816; 96361; 96365; 96375; 96376; 99291

== ENCOUNTER 2021-06-23 22:32 | Emergency (ER) | payer OTHER ==
[2021-06-23 22:42] VITALS: TEMP 99.5
--- NOTE | 2021-06-23 23:02 | ED ---
Overdose HPI - General Stated Complaint: overdose Time Seen by Provider: 06/23/21 22:38 Source: patient, EMS Mode of arrival: EMS Limitations: no limitations - History of Present Illness Initial Comments: This patient is a 45-year-old man brought in to have evaluation after he was concern he may have accidentally overdosed. The patient admits to using heroin. He states that he was just using and then felt like he might have taken too much. First responders arrived they did not have to give Narcan. He was awake and alert. The patient does know where he is he does deny suicidal ideation. He is denying any complaints at this point. No fever or chills. No abscesses. No dyspnea or chest pain. MD Complaint: accidental overdose -: hour(s) Intent: other Context: Accidental Overdose: wanted to get high Treatments Prior to Arrival: none - Related Data Home Medications Medication Instructions Recorded Confirmed No Known Home Medications 02/21/17 02/21/17 Previous Rx's Medication Instructions Recorded Amoxic-Pot Clav 875-125Mg 1 each PO Q12HR #7 tab 06/14/21 [Augmentin 875-125] Allergies Allergy/AdvReac Type Severity Reaction Status Date / Time No Known Allergies Allergy Verified 06/23/21 22:42 Review of Systems ROS Statement: Those systems with pertinent positive or pertinent negative responses have been documented in the HPI. ROS Other: All systems not noted in ROS Statement are negative. Constitutional: Denies: fever, chills Respiratory: Denies: cough, dyspnea Cardiovascular: Denies: chest pain, syncope Gastrointestinal: Denies: abdominal pain, vomiting, diarrhea Genitourinary: Denies: dysuria Skin: Denies: lesions Neurological: Denies: headache, weakness Past Medical History Past Medical History: No Reported History History of Any Multi-Drug Resistant Organisms: None Reported Past Surgical History: No Surgical Hx Reported Past Anesthesia/Blood Transfusion Reactions: No Reported Reaction Past Psychological History: No Psychological Hx Reported Past Alcohol Use History: None Reported, Occasional Past Drug Use History: Heroin, IV Drug Use, Marijuana, Methamphetamine, Opiates General Exam Limitations: no limitations General appearance: alert, in no apparent distress Head exam: Present: atraumatic, normocephalic Eye exam: Present: normal appearance. Absent: scleral icterus, conjunctival injection Neck exam: Present: normal inspection Respiratory exam: Present: normal lung sounds bilaterally. Absent: respiratory distress, wheezes, rales, rhonchi, stridor Cardiovascular Exam: Present: regular rate, normal rhythm, normal heart sounds. Absent: systolic murmur, diastolic murmur, rubs, gallop GI/Abdominal exam: Present: soft. Absent: distended, tenderness, guarding, rebound, rigid Extremities exam: Present: normal inspection, normal capillary refill Back exam: Present: normal inspection. Absent: CVA tenderness (R), CVA tenderness (L) Neurological exam: Present: alert Psychiatric exam: Absent: depressed, suicidal ideation Skin exam: Present: warm, dry, intact, normal color. Absent: rash Course Vital Signs 06/23/21 06/23/21 06/24/21 22:36 23:23 00:42 Temperature 99.5 F Pulse Rate 116 H 108 H 103 H Respiratory 18 18 16 Rate Blood Pressure 155/72 113/72 O2 Sat by Pulse 94 L 96 95 Oximetry 06/24/21 02:36 Temperature Pulse Rate 89 Respiratory 18 Rate Blood Pressure 120/89 O2 Sat by Pulse 99 Oximetry Disposition Clinical Impression: Overdose Disposition: HOME SELF-CARE Condition: Good Instructions (If sedation given, give patient instructions): Adult Overdose (ED) Is patient prescribed a controlled substance at d/c from ED?: No Referrals: None,Stated [Primary Care Provider] - 1-2 days
[2021-06-24 02:37] VITALS: RESP 18
[2021-06-24 04:34] VITALS: BP 124/84; PULSE 98
== END 2021-06-24 04:54 | disposition home or self-care (01) ==
LOC: EC 22:32
DX: T40.1X1A Poisoning by heroin, accidental (unintentional), initial encounter (principal); F12.90 Cannabis use, unspecified, uncomplicated; F14.90 Cocaine use, unspecified, uncomplicated; F11.90 Opioid use, unspecified, uncomplicated; F15.90 Other stimulant use, unspecified, uncomplicated
CPT/HCPCS: 99284

== ENCOUNTER 2023-01-03 16:07 | Emergency (ER) | payer OTHER ==
--- NOTE | 2023-01-03 16:15 | ED ---
Overdose HPI - General Stated Complaint: Overdose Time Seen by Provider: 01/03/23 16:09 Source: RN notes reviewed, old records reviewed Mode of arrival: EMS Limitations: no limitations - History of Present Illness Initial Comments: This is a 47-year-old male who presents with opiate overdose requiring Narcan, patient does admit to heroin use today, patient states that recent homelessness situation him significantly depressed, he is currently awake alert thirsty a little shaky and cold. Patient has no other significant symptoms no headache chest pain shortness breath or abdominal pain. MD Complaint: intentional overdose (Patient took overdose as recreation) -: minutes(s) Intent: unwilling to say (Recreation) Context: Intentional Overdose: drug/ETOH problems Context: Accidental Overdose: wanted to get high Associated Symptoms: depression (Patient denies depression or suicidal thoughts) Treatments Prior to Arrival: none - Related Data Home Medications Medication Instructions Recorded Confirmed No Known Home Medications 02/21/17 02/21/17 Previous Rx's Medication Instructions Recorded Amoxic-Pot Clav 875-125Mg 1 each PO Q12HR #7 tab 06/14/21 [Augmentin 875-125] Allergies Allergy/AdvReac Type Severity Reaction Status Date / Time No Known Allergies Allergy Verified 06/23/21 22:42 Review of Systems ROS Statement: Those systems with pertinent positive or pertinent negative responses have been documented in the HPI. ROS Other: All systems not noted in ROS Statement are negative. Past Medical History Past Medical History: No Reported History History of Any Multi-Drug Resistant Organisms: None Reported Past Surgical History: No Surgical Hx Reported Past Anesthesia/Blood Transfusion Reactions: No Reported Reaction Past Psychological History: No Psychological Hx Reported Past Alcohol Use History: None Reported, Occasional Past Drug Use History: Heroin, IV Drug Use, Marijuana, Methamphetamine, Opiates General Exam Limitations: altered mental status (Patient's altered mental status as resolved) General appearance: alert, in no apparent distress Head exam: Present: atraumatic, normocephalic, normal inspection Eye exam: Present: normal appearance, PERRL, EOMI. Absent: scleral icterus, conjunctival injection, periorbital swelling ENT exam: Present: normal exam, mucous membranes moist Neck exam: Present: normal inspection. Absent: tenderness, meningismus, lymphadenopathy Respiratory exam: Present: normal lung sounds bilaterally. Absent: respiratory distress, wheezes, rales, rhonchi, stridor Cardiovascular Exam: Present: regular rate, normal rhythm, normal heart sounds. Absent: systolic murmur, diastolic murmur, rubs, gallop, clicks GI/Abdominal exam: Present: soft, normal bowel sounds. Absent: distended, tenderness, guarding, rebound, rigid Extremities exam: Present: normal inspection, full ROM, normal capillary refill. Absent: tenderness, pedal edema, joint swelling, calf tenderness Back exam: Present: normal inspection Neurological exam: Present: alert, oriented X3, CN II-XII intact Psychiatric exam: Present: normal affect, normal mood Skin exam: Present: warm, dry, intact, normal color. Absent: rash Course Vital Signs 01/03/23 16:12 Temperature 98.5 F Pulse Rate 96 Respiratory 20 Rate Blood Pressure 153/103 O2 Sat by Pulse 96 Oximetry - Reevaluation(s) Reevaluation #1: 01/03/23 16:59 Medical record is reviewed Reevaluation #2: 01/03/23 17:01 Patient continues to remain awake and alert here in the ER Reevaluation #3: 01/03/23 17:01 patient informed of results questions answered Reevaluation #4: 01/03/23 17:01 Was pt. sent in by a medical professional or institution (, PA, COLOR [employer]KER, urgent care, hospital, or fci...) When possible be specific @ -no Did you speak to anyone other than the patient for history (EMS, parent, family, police, friend...)? What history was obtained from this source @ -no Did you review nursing and triage notes (agree or disagree)? Why? @ -agree Are old charts reviewed (outside hosp., previous admission, EMS record, old EKG, old radiological studies, urgent care reports/EKG's, fci records)? Report findings @ -yes Differential Diagnosis (chest pain, altered mental status, abdominal pain women, abdominal pain men, vaginal bleeding, weakness, fever, dyspnea, syncope, he adache, dizziness, GI bleed, back pain, seizure, CVA, palpatations, mental health, musculoskeletal)? @ -prior EKG interpreted by me (3pts min.). @ -yes X-rays interpreted by me (1pt min.). @ -yes CT interpreted by me (1pt min.). @ -no U/S interpreted by me (1pt. min.). @ -no What testing was considered but not performed or refused? (CT, X-rays, U/S, labs)? Why? @ -none What meds were considered but not given or refused? Why? @ -none Did you discuss the management of the patient with other professionals (professionals i.e. , PA, COLOR MAKER, lab, RT, psych nurse, social media assistant, foam dispenser, teacher, public health service officer, case assistant)? Give summary @ -no Was smoking cessation discussed for >3mins.? @ -no Was critical care preformed (if so, how long)? @ -no Were there social determinants of health that impacted care today? How? (Homelessness, low income, unemployed, alcoholism, drug addiction, transportation, low edu. Level, literacy, decrease access to med. care, intermediate, rehab)? @ -none Was there de-escalation of care discussed even if they declined (Discuss DNR or withdrawal of care, Hospice)? DNR status @ -no What co-morbidities impacted this encounter? (DM, HTN, Smoking, COPD, CAD, Can cer, CVA, ARF, Chemo, Hep., AIDS, mental health diagnosis, sleep apnea, morbid obesity)? @ -none Was patient admitted / discharged? Hospital course, mention meds given and route, prescriptions, significant lab abnormalities, going to OR and other pertinent info. @ - Undiagnosed new problem with uncertain prognosis? @ -no Drug Therapy requiring intensive monitoring for toxicity (Heparin, Nitro, Insulin, Cardizem)? @ -no Were any procedures done? @ -no Diagnosis/symptom? @ - Acute, or Chronic, or Acute on Chronic? @ -Acute Uncomplicated (without systemic symptoms) or Complicated (systemic symptoms)? @ -Complicated Side effects of treatment? @ -no Exacerbation, Progression, or Severe Exacerbation? @ -exacerbation Poses a threat to life or bodily function? How? (Chest pain, [place], [place], pneumonia, PE, COPD, DKA, ARF, appy, cholecystitis, CVA, Diverticulitis, Homicidal, Suicidal, threat to staff... and all critical care pts) @ -yes Medical Decision Making - Medical Decision Making 47 male to the emergency department for evaluation. Patient presents today for evaluation of overdose opiate overdose is now resolved. Patient's awake and alert and can be discharged home, he is not homicidal or suicidal has no complaints Disposition Clinical Impression: Overdose, Drug overdose, Poisoning by opiates and related narcotics, other Disposition: HOME SELF-CARE Condition: Fair Instructions (If sedation given, give patient instructions): Adult Overdose (ED) Is patient prescribed a controlled substance at d/c from ED?: No Referrals: None,Stated [Primary Care Provider] - 1-2 days Time of Disposition: 16:59
[2023-01-03 16:20] VITALS: TEMP 98.5
[2023-01-03 18:41] VITALS: BP 158/94; PULSE 103; RESP 18
== END 2023-01-03 18:27 | disposition home or self-care (01) ==
LOC: EC 16:07
DX: T50.7X1A Poisoning by analeptics and opioid receptor antagonists, accidental (unintentional), initial encounter (principal); F12.90 Cannabis use, unspecified, uncomplicated; F15.90 Other stimulant use, unspecified, uncomplicated; F19.10 Other psychoactive substance abuse, uncomplicated
CPT/HCPCS: 99284

== ENCOUNTER 2023-02-11 19:35 | Inpatient (IN) | payer OTHER ==
--- NOTE | 2023-02-11 20:47 | ED ---
General Adult HPI - General Source: patient, EMS, RN notes reviewed Mode of arrival: EMS Limitations: no limitations <Marla Henley - Last Filed: 02/11/23 20:47> <Reggie Kenny - Last Filed: 02/12/23 02:14> <Madi Lui - Last Filed: 02/15/23 07:30> - General Chief complaint: Skin/Abscess/Foreign Body Stated complaint: Weakness Time Seen by Provider: 02/11/23 20:47 - History of Present Illness Initial comments: patient is a 47-year-old male presenting to the ER with chief complaint of weakness. Patient states his whole body is very achy and he has a rash all over his body. Patient denies any fevers but endorses chills. (Marla Henley) 87-year-old male presenting to the ED with a chief complaint of generalized weakness. Patient is homeless. Patient does admit to IV drug use using both methamphetamines and heroin, last drug use 3 days ago. Patient also does admit to smoking. Denies alcohol use. Patient states over the past few days has had generalized weakness and today reports it has cut so bad he has had difficulty standing. Also notes he has a rash all over his body. States rash is itchy. Notes myalgias with this. Denies fever, chills. Denies chest pain, shortness of breath, cough. No other complaints. (Reggie Kenny) - Related Data Home Medications Medication Instructions Recorded Confirmed No Known Home Medications 02/21/17 02/12/23 Allergies Allergy/AdvReac Type Severity Reaction Status Date / Time No Known Allergies Allergy Verified 02/12/23 06:33 Review of Systems ROS Other: All systems not noted in ROS Statement are negative. <Marla Henley - Last Filed: 02/11/23 20:47> ROS Other: All systems not noted in ROS Statement are negative. <Reggie Kenny - Last Filed: 02/12/23 02:14> ROS Other: All systems not noted in ROS Statement are negative. <Madi Lui - Last Filed: 02/15/23 07:30> ROS Statement: Those systems with pertinent positive or pertinent negative responses have been documented in the HPI. Past Medical History Past Medical History: No Reported History History of Any Multi-Drug Resistant Organisms: None Reported Past Surgical History: No Surgical Hx Reported Past Anesthesia/Blood Transfusion Reactions: No Reported Reaction Past Psychological History: No Psychological Hx Reported Smoking Status: Current every day smoker, Vaper Past Alcohol Use History: None Reported, Occasional Past Drug Use History: Heroin, IV Drug Use, Marijuana, Methamphetamine, Opiates <Marla Henley - Last Filed: 02/11/23 20:47> General Exam Limitations: no limitations <Marla Henley - Last Filed: 02/11/23 20:47> General appearance: alert, in no apparent distress Neck exam: Present: normal inspection Respiratory exam: Present: normal lung sounds bilaterally Cardiovascular Exam: Present: tachycardia GI/Abdominal exam: Present: soft (No tenderness to palpation. No rebound guarding or rigidity.) Neurological exam: Present: alert, oriented X3 Skin exam: Present: other (Pupuric rash noted on the patient's bilateral upper and lower extremities. Does not artur.) <Reggie Kenny - Last Filed: 02/12/23 02:14> - General Exam Comments Initial Comments: Visual Physical Exam Vital signs reviewed General: Well-appearing, nontoxic, no acute distress. Head: Normocephalic, atraumatic Eyes: PERRLA, EOMI ENT: Airway patent Chest: Nonlabored breathing Skin: No visual rash, normal skin tone Neuro: Alert and oriented 3 Musculoskeletal: No gross abnormalities (Marla Henley) Course Vital Signs 02/11/23 02/11/23 02/12/23 20:08 23:17 01:00 Temperature 98 F Pulse Rate 112 H 104 H 117 H Respiratory 20 18 18 Rate Blood Pressure 101/59 149/81 113/62 O2 Sat by Pulse 94 L 97 97 Oximetry 02/12/23 02/12/23 02/12/23 05:00 07:46 08:30 Temperature 99.3 F Pulse Rate 112 H 123 H 121 H Respiratory 22 20 21 Rate Blood Pressure 111/72 122/59 110/61 O2 Sat by Pulse 100 97 96 Oximetry 02/12/23 02/12/23 02/12/23 09:02 10:10 11:00 Temperature 98.3 F Pulse Rate 122 H 111 H 107 H Respiratory 20 17 19 Rate Blood Pressure 110/65 119/48 O2 Sat by Pulse 96 97 97 Oximetry 02/12/23 02/12/23 14:29 15:46 Temperature Pulse Rate 98 93 Respiratory 18 18 Rate Blood Pressure 105/72 119/71 O2 Sat by Pulse 98 Oximetry Medical Decision Making <Marla Henley - Last Filed: 02/11/23 20:47> - Lab Data Result diagrams: 02/11/23 21:01 02/11/23 21:01 <[email or web address] - Last Filed: 02/12/23 02:14> - Lab Data Result diagrams: 02/14/23 07:55 02/14/23 07:55 <Madi Lui - Last Filed: 02/15/23 07:30> - Medical Decision Making I performed the quick note portion of the exam. Electronically signed by Marla Henley PA-C (Marla Henley) Was pt. sent in by a medical professional or institution (DONTE Coleman, COMMERCIAL HORTICULTURE INSTRUCTOR, urgent care, hospital, or skilled nursing...) When possible be specific @ -No Did you speak to anyone other than the patient for history (EMS, parent, family, police, friend...)? What history was obtained from this source @ -No Did you review nursing and triage notes (agree or disagree)? Why? @ -I reviewed and agree with nursing and triage notes Were old charts reviewed (outside hosp., previous admission, EMS record, old EKG, old radiological studies, urgent care reports/EKG's, skilled nursing records)? Report findings @ -No old charts were reviewed Differential Diagnosis (chest pain, altered mental status, abdominal pain women, abdominal pain men, vaginal bleeding, weakness, fever, dyspnea, syncope, headache, dizziness, GI bleed, back pain, seizure, CVA, palpatations, mental health, musculoskeletal)? @ -Differential Fever: Pneumonia, viral URI, endocarditis, myocarditis, pericarditis, otitis, sinusitis, peritonsillar Abscess, retropharyngeal Abscess, epiglottitis, peritonitis, appendicitis, Carmenza cystitis, diverticulitis, hepatitis, colitis, UTI, PID, TOA, pyelonephritis, prostatitis, epididymitis, meningitis, encephalitis, pulmonary embolism, CVA, thyroid storm, pancreatitis, adrenal crisis, cavernous sinus thrombosis, this is not meant to be an all-inclusive list. EKG interpreted by me (3pts min.). @ -As above X-rays interpreted by me (1pt min.). @ -X-ray interpretation me showing findings concerning for multifocal pneumonia versus metastatic disease. CT interpreted by me (1pt min.). @ -CT at this time pending. U/S interpreted by me (1pt. min.). @ -Echo at this time is pending. What testing was considered but not performed or refused? (CT, X-rays, U/S, labs)? Why? @ -None What meds were considered but not given or refused? Why? @ -None Did you discuss the management of the patient with other professionals (professionals i.e. , PA, COMMERCIAL HORTICULTURE INSTRUCTOR, lab, RT, psych nurse, social organization professor, linoleum layer helper, teacher, certified juvenile probation officer, case folder)? Give summary @ -Case discussed with Dr. Naranjo, who accepts admission. Was smoking cessation discussed for >3mins.? @ -No Was critical care preformed (if so, how long)? @ -20 Were there social determinants of health that impacted care today? How? (Homelessness, low income, unemployed, alcoholism, drug addiction, transportation, low edu. Level, literacy, decrease access to med. care, shelter, rehab)? @ -No Was there de-escalation of care discussed even if they declined (Discuss DNR or withdrawal of care, Hospice)? DNR status @ -No What co-morbidities impacted this encounter? (DM, HTN, Smoking, COPD, CAD, Ca ncer, CVA, ARF, Chemo, Hep., AIDS, mental health diagnosis, sleep apnea, morbid obesity)? @ -IV drug use, homelessness Was patient admitted / discharged? Hospital course, mention meds given and route, prescriptions, significant lab abnormalities, going to OR and other pertinent info. @ -Admission A 47-year-old IV drug user presenting to the ED with complaints of generalized fatigue, myalgias, and rash. Laboratory studies reviewed. CBC significant for a white count of 16 , and thrombocytopenia at 80. Chemistry panel significnat for hyponatremia at 121, hypokalemia at 3.0, elevation of BUN at 47. Initial lactic acid elevated at 3, repeat 1.8. Patient does have some transaminitis with elevation of bilirubin at 1.8, AST at 62, ALT 52. Initial troponin elevated at 0.135. Serology panel negative. On initial presentation H and found to have tachycardia and hypotension. Additionally, patient had elevated white count at 16 sepsis criteria. However no large fluid resuscitation at this time secondary to significant hyponatremia. Patient provided 500 mL bolus and started on maintenance fluids. Case discussed with Dr. Naranjo, who accepts admission. Will consult cardiology at this time. Undiagnosed new problem with uncertain prognosis? @ -No Drug Therapy requiring intensive monitoring for toxicity (Heparin, Nitro, Insulin, Cardizem)? @ -No Were any procedures done? @ -No Diagnosis/symptom? @ -Hyponatremia, sepsis, r/o endocarditis Acute, or Chronic, or Acute on Chronic? @ -Acute Uncomplicated (without systemic symptoms) or Complicated (systemic symptoms)? @ -Complicated Side effects of treatment? @ -No Exacerbation, Progression, or Severe Exacerbation? @ -No Poses a threat to life or bodily function? How? (Chest pain, [place], [place], pneumonia, PE, COPD, DKA, ARF, appy, cholecystitis, CVA, Diverticulitis, Homicidal, Suicidal, threat to staff... and all critical care pts) @ -Yes (Reggie Kenny) - Lab Data Lab Results 02/11/23 02/11/23 02/11/23 Range/Units 20:14 21:01 21:01 WBC 16.0 H (3.8-10.6) k/uL RBC 4.14 L (4.30-5.90) m/uL Hgb 12.6 L (13.0-17.5) gm/dL Hct 36.0 L (39.0-53.0) % MCV 87.0 (80.0-100.0) fL MCH 30.3 (25.0-35.0) pg MCHC 34.9 (31.0-37.0) g/dL RDW 13.1 (11.5-15.5) % Plt Count 80 L (150-450) k/uL MPV 10.0 Sodium 121 L (137-145) mmol/L Potassium 3.0 L (3.5-5.1) mmol/L Chloride 81 L (98-107) mmol/L Carbon Dioxide 28 (22-30) mmol/L Anion Gap 12 mmol/L BUN 47 H (9-20) mg/dL Creatinine 1.07 (0.66-1.25) mg/dL Est GFR (CKD-EPI)AfAm >90 (>60 ml/min/1.73 sqM) Est GFR (CKD-EPI)NonAf 84 (>60 ml/min/1.73 sqM) Glucose 86 (74-99) mg/dL Lactic Ac Sepsis Rflx Plasma Lactic Acid Paulo (0.7-2.0) mmol/L Calcium 7.6 L (8.4-10.2) mg/dL Phosphorus (2.5-4.5) mg/dL Magnesium (1.6-2.3) mg/dL Total Bilirubin 1.8 H (0.2-1.3) mg/dL AST 62 H (17-59) U/L ALT 52 H (4-49) U/L Alkaline Phosphatase 112 (38-126) U/L Troponin I (0.000-0.034) ng/mL Total Protein 7.2 (6.3-8.2) g/dL Albumin 2.7 L (3.5-5.0) g/dL Serum Alcohol mg/dL HIV-1 RNA Quant (<20) Copies/mL HIV RNA logcopies/mL Ult (<1.30) HIV-1 RNA (PCR) (Not detected) Influenza Type A (PCR) Not Detected (Not Detectd) Influenza Type B (PCR) Not Detected (Not Detectd) RSV (PCR) Not Detected (Not Detectd) SARS-CoV-2 (PCR) Not Detected (Not Detectd) 02/11/23 02/11/23 02/11/23 Range/Units 21:01 21:39 23:45 WBC (3.8-10.6) k/uL RBC (4.30-5.90) m/uL Hgb (13.0-17.5) gm/dL Hct (39.0-53.0) % MCV (80.0-100.0) fL MCH (25.0-35.0) pg MCHC (31.0-37.0) g/dL RDW (11.5-15.5) % Plt Count (150-450) k/uL MPV Sodium (137-145) mmol/L Potassium (3.5-5.1) mmol/L Chloride (98-107) mmol/L Carbon Dioxide (22-30) mmol/L Anion Gap mmol/L BUN (9-20) mg/dL Creatinine (0.66-1.25) mg/dL Est GFR (CKD-EPI)AfAm (>60 ml/min/1.73 sqM) Est GFR (CKD-EPI)NonAf (>60 ml/min/1.73 sqM) Glucose (74-99) mg/dL Lactic Ac Sepsis Rflx Y Plasma Lactic Acid Paulo 3.0 H* (0.7-2.0) mmol/L Calcium (8.4-10.2) mg/dL Phosphorus 4.1 (2.5-4.5) mg/dL Magnesium 2.0 (1.6-2.3) mg/dL Total Bilirubin (0.2-1.3) mg/dL AST (17-59) U/L ALT (4-49) U/L Alkaline Phosphatase (38-126) U/L Troponin I (0.000-0.034) ng/mL Total Protein (6.3-8.2) g/dL Albumin (3.5-5.0) g/dL Serum Alcohol <10 mg/dL HIV-1 RNA Quant (<20) Copies/mL HIV RNA logcopies/mL Ult (<1.30) HIV-1 RNA (PCR) (Not detected) Influenza Type A (PCR) (Not Detectd) Influenza Type B (PCR) (Not Detectd) RSV (PCR) (Not Detectd) SARS-CoV-2 (PCR) (Not Detectd) 02/11/23 02/11/23 02/12/23 Range/Units 23:45 23:45 00:08 WBC (3.8-10.6) k/uL RBC (4.30-5.90) m/uL Hgb (13.0-17.5) gm/dL Hct (39.0-53.0) % MCV (80.0-100.0) fL MCH (25.0-35.0) pg MCHC (31.0-37.0) g/dL RDW (11.5-15.5) % Plt Count (150-450) k/uL MPV Sodium (137-145) mmol/L Potassium (3.5-5.1) mmol/L Chloride (98-107) mmol/L Carbon Dioxide (22-30) mmol/L Anion Gap mmol/L BUN (9-20) mg/dL Creatinine (0.66-1.25) mg/dL Est GFR (CKD-EPI)AfAm (>60 ml/min/1.73 sqM) Est GFR (CKD-EPI)NonAf (>60 ml/min/1.73 sqM) Glucose (74-99) mg/dL Lactic Ac Sepsis Rflx Plasma Lactic Acid Paulo 1.8 (0.7-2.0) mmol/L Calcium (8.4-10.2) mg/dL Phosphorus (2.5-4.5) mg/dL Magnesium (1.6-2.3) mg/dL Total Bilirubin (0.2-1.3) mg/dL AST (17-59) U/L ALT (4-49) U/L Alkaline Phosphatase (38-126) U/L Troponin I 0.135 H* (0.000-0.034) ng/mL Total Protein (6.3-8.2) g/dL Albumin (3.5-5.0) g/dL Serum Alcohol mg/dL HIV-1 RNA Quant <20 (<20) Copies/mL HIV RNA logcopies/mL Ult <1.30 (<1.30) HIV-1 RNA (PCR) Not detected (Not detected) Influenza Type A (PCR) (Not Detectd) Influenza Type B (PCR) (Not Detectd) RSV (PCR) (Not Detectd) SARS-CoV-2 (PCR) (Not Detectd) - EKG Data EKG Comments: EKG shows a sinus rhythm at a rate 112 bpm, VT 134, QRS 101, QT/QTC 294/360. Nonspecific ST and T-wave changes. (Reggie Kenny) Critical Care Time Critical Care Time: Yes Total Critical Care Time: 20 <Reggie Kenny - Last Filed: 02/12/23 02:14> Disposition <Marla Henley - Last Filed: 02/11/23 20:47> <Reggie Kenny - Last Filed: 02/12/23 02:14> <Madi Lui - Last Filed: 02/15/23 07:30> Clinical Impression: Sepsis, Hyponatremia Disposition: ADMITTED IP TO THIS HOSP Condition: Stable
[2023-02-11 21:24] LABS: HGB 12.6 gm/dL (13.0-17.5); MCH 30.3 pg (25.0-35.0); MCHC 34.9 g/dL (31.0-37.0); RBC 4.14 m/uL (4.30-5.90); RDW 13.1 % (11.5-15.5)
--- NOTE | 2023-02-11 21:33 | XR ---
EXAMINATION TYPE: XR chest 2V DATE OF EXAM: 02/11/2023 COMPARISON: 06/14/2021 HISTORY: 47-year-old male with weakness and generalized body aches with rash TECHNIQUE: PA and lateral views FINDINGS: Multifocal opacities are present on both sides of the lung. These have a somewhat rounded appearance. Heart normal size. Aorta and pulmonary vasculature within normal limits. IMPRESSION: Multifocal nodular appearing or masslike opacities. Unclear if these represent multifocal pneumonia i ncluding the possibility of atypical mycobacterial/fungal infections or if this represents metastatic disease.
[2023-02-11 21:36] LABS: ALT 52 U/L (4-49); AST 62 U/L (17-59); African American GFR (CKD) >90 (>60 ml/min/1.73 sqM); Albumin 2.7 g/dL (3.5-5.0); Alkaline Phosphatase 112 U/L (38-126); Anion Gap 12 mmol/L; Blood Urea Nitrogen 47 mg/dL (9-20); Calcium 7.6 mg/dL (8.4-10.2); Carbon Dioxide 28 mmol/L (22-30); Chloride 81 mmol/L (98-107); Glucose 86 mg/dL (74-99); Non-African American GFR(CKD) 84 (>60 ml/min/1.73 sqM); Sodium 121 mmol/L (137-145); Total Bilirubin 1.8 mg/dL (0.2-1.3); Total Protein 7.2 g/dL (6.3-8.2)
[2023-02-11 21:42] LABS: Platelet Count 80 k/uL (150-450)
[2023-02-11] MEDS ORDERED: SODIUM CHLORIDE 0.9% 1,000 ML IV STA (23:19)
[2023-02-11] MEDS ORDERED: SODIUM CHLORIDE 0.9% 500 ML 500 ML IV STA (23:19)
[2023-02-11] MEDS ORDERED: VANCOMYCIN IV PER PHARMACY 1 EACH MISC MISCELLANE PRN (23:24)
[2023-02-11] MEDS ORDERED: RX INFO: IV CONTRAST WAS GIVEN 1 EACH MISC MISCELLANE PRN (23:27)
[2023-02-12] MEDS ORDERED: CEFEPIME 1 GM in SODIUM CHLORIDE 0.9% 50 ML IVPB ONE ×2
[2023-02-12 00:28] LABS: Alcohol <10 mg/dL; Phosphorus 4.1 mg/dL (2.5-4.5)
[2023-02-12] MEDS ORDERED: VANCOMYCIN 1,250 MG in SODIUM CHLORIDE 0.9% 250 ML IVPB ONE (01:00)
[2023-02-12] MEDS ORDERED: HYDROmorphone 0.5 MG/0.5 ML SYRINGE IVP PRN (02:16)
[2023-02-12] MEDS ORDERED: ONDANSETRON 4 MG/2 ML VIAL IVP PRN (02:16)
[2023-02-12] MEDS ORDERED: NALOXONE 0.4 MG/ML 1 ML VIAL IV PRN (02:16)
[2023-02-12] MEDS ORDERED: SODIUM CHLORIDE 0.9% 1,000 ML IV ONE (02:26)
[2023-02-12] MEDS ORDERED: POTASSIUM CHLORIDE ER 20 MEQ TAB.ER PO STA ×2 (02:28→23:33)
[2023-02-12] MEDS ORDERED: SODIUM CHLORIDE 0.9% 1,000 ML IV SCH (02:30)
--- NOTE | 2023-02-12 02:30 | P.HPIM ---
History of Present Illness H&P Date: 02/12/23 Patient is a 47-year-old male with a PMH of IV substance abuse (ongoing, most recently heroin 4 days ago), currently experiencing homelessness, who had presented to the emergency room for generalized body aches and rash. The patient reports noticing the rash 4 days ago and that it is gradually worsening. Reports diffuse chest discomfort, 4 out of 10, constant, nonpleuritic, along with fever and chills. Denies abdominal pain, nausea, vomiting, dizziness, cough. Chest x-ray revealed multifocal nodular opacities concerning for multifocal pneumonia versus atypical etiology. Laboratory evaluation was remarkable for a lactic acid of 3.0, troponin 0.125, total bili 1.8, AST 62, ALT 52, sodium 121, potassium 3.0, WBC count 16.0, and platelet count 80. ED documentation reviewed and case discussed with ED provider. Review of systems: Pertinent positives and negatives as discussed in HPI, a complete review of systems was performed and all other systems are negative. Physical examination: Vital signs reviewed General: Chronically ill-appearing male, no distress, appears at stated age, normal weight Derm: Diffuse petechial rash involving most of his body, warm Head: atraumatic, normocephalic, symmetric Eyes: EOMI, no lid lag, anicteric sclera, pupils equal round reactive to light ENT: Nose and ears atraumatic Neck: No cervical lymphadenopathy, trachea midline, supple Mouth: no lip lesion, mucus membranes moist Cardiovascular: Systolic murmur appreciated, positive dorsalis pedis pulse bilateral, no edema Lungs: CTA bilateral, no rhonchi, no rales, no accessory muscle use Abdominal: soft, nontender to palpation, no guarding Ext: muscle strength 5 out of 5 in all 4 extremities grossly, no gross muscle atrophy, no contractures, Neuro: CN II-XI grossly intact, no gross focal neuro deficits Psych: Alert, oriented, appropriate affect Assessment: Sepsis secondary to suspected infective endocarditis Elevated troponin, likely secondary to above, vs ACS Petechial rash, suspect secondary to ongoing sepsis and infective endocarditis Hypochloremic hyponatremia, suspected to poor oral intake Lactic acidosis Abnormal LFTs Thrombocytopenia IV substance abuse Imaging: Chest x-ray revealed multifocal nodular opacities concerning for multifocal pneumonia versus atypical etiology. Data Review: Laboratory evaluation was remarkable for a lactic acid of 3.0, troponin 0.125, total bili 1.8, AST 62, ALT 52, sodium 121, potassium 3.0, WBC count 16.0, and platelet count 80. Plan: Continue broad spectrum antibiotic coverage including vancomycin and cefepime Follow-up blood cultures Trend troponin with cardiac monitoring Initiate Heparin infusion Cardiology and infectious disease consulted Follow-up echocardiogram and CT chest Follow-up hyponatremia studies including osmolality Monitor BMP closely Replace potassium Continue with IV fluids normal saline at 130 mL per hour Monitor lactic acid resolution Follow-up HIV testing DVT prophylaxis: Heparin infusion The patient is admitted with an anticipated greater than 2 midnight stay for evaluation of sepsis CODE STATUS: Full Code Discussed with: Patient Anticipated discharge place: Home Past Medical History Past Medical History: No Reported History History of Any Multi-Drug Resistant Organisms: None Reported Past Surgical History: No Surgical Hx Reported Past Anesthesia/Blood Transfusion Reactions: No Reported Reaction Past Psychological History: No Psychological Hx Reported Smoking Status: Current every day smoker, Vaper Past Alcohol Use History: None Reported, Occasional Past Drug Use History: Heroin, IV Drug Use, Marijuana, Methamphetamine, Opiates Medications and Allergies Home Medications Medication Instructions Recorded Confirmed Type No Known Home Medications 02/21/17 02/21/17 History Amoxic-Pot Clav 875-125Mg 1 each PO Q12HR #7 tab 06/14/21 Rx [Augmentin 875-125] Allergies Allergy/AdvReac Type Severity Reaction Status Date / Time No Known Allergies Allergy Verified 06/23/21 22:42 Physical Exam Vitals: Vital Signs Temp Pulse Resp BP Pulse Ox 02/12/23 01:00 117 H 18 113/62 97 02/11/23 23:17 104 H 18 149/81 97 02/11/23 20:08 98 F 112 H 20 101/59 94 L Intake and Output 02/11/23 02/11/23 02/12/23 14:59 22:59 06:59 Other: Weight 58.967 kg Results CBC & Chem 7: 02/11/23 21:01 02/11/23 21:01 Labs: Abnormal Lab Results - Last 24 Hours (Table) 02/11/23 02/11/23 02/11/23 Range/Units 21:01 21:01 21:01 WBC 16.0 H (3.8-10.6) k/uL RBC 4.14 L (4.30-5.90) m/uL Hgb 12.6 L (13.0-17.5) gm/dL Hct 36.0 L (39.0-53.0) % Plt Count 80 L (150-450) k/uL Sodium 121 L (137-145) mmol/L Potassium 3.0 L (3.5-5.1) mmol/L Chloride 81 L (98-107) mmol/L BUN 47 H (9-20) mg/dL Plasma Lactic Acid Paulo 3.0 H* (0.7-2.0) mmol/L Calcium 7.6 L (8.4-10.2) mg/dL Total Bilirubin 1.8 H (0.2-1.3) mg/dL AST 62 H (17-59) U/L ALT 52 H (4-49) U/L Troponin I (0.000-0.034) ng/mL Albumin 2.7 L (3.5-5.0) g/dL 02/11/23 Range/Units 23:45 WBC (3.8-10.6) k/uL RBC (4.30-5.90) m/uL Hgb (13.0-17.5) gm/dL Hct (39.0-53.0) % Plt Count (150-450) k/uL Sodium (137-145) mmol/L Potassium (3.5-5.1) mmol/L Chloride (98-107) mmol/L BUN (9-20) mg/dL Plasma Lactic Acid Paulo (0.7-2.0) mmol/L Calcium (8.4-10.2) mg/dL Total Bilirubin (0.2-1.3) mg/dL AST (17-59) U/L ALT (4-49) U/L Troponin I 0.135 H* (0.000-0.034) ng/mL Albumin (3.5-5.0) g/dL
--- NOTE | 2023-02-12 02:38 | CT ---
EXAM: CT Chest With Intravenous Contrast CLINICAL HISTORY: Multinodular lung mass TECHNIQUE: Axial computed tomography images of the chest with intravenous contrast. CTDI is 5.6 mGy and DLP is 274.1 mGy-cm. This CT exam was performed using one or more of the following dose reduction techniques: automated exposure control, adjustment of the mA and/or kV according to patient size, and/or use of iterative reconstruction technique. COMPARISON: Chest x-ray 06/14/2021. FINDINGS: Lungs: Numerous diffuse solid and cystic/necrotic masses throughout the lungs, largest in the left upper lobe up to 3.2 x 3 cm. Ill-defined infiltrates the periphery of the bilateral lower lobes. Pleural space: Pleural-based soft tissue mass the anterior lateral right upper chest 27 x 10 mm. No pneumothorax. No pleural effusion. Heart: Unremarkable. No cardiomegaly. No significant pericardial effusion. No coronary artery calcifications. Bones/joints: Unremarkable. No acute fracture. Soft tissues: Unremarkable. Vasculature: Unremarkable. No thoracic aortic aneurysm. Mediastinum: Multiple lymph nodes, largest precarinal 1.3 cm diameter. Abdomen: Enlarged liver is 17.7 cm length. 7 mm probable cyst in the right lobe. Splenomegaly 14 cm length. IMPRESSION: Numerous predominantly cystic/necrotic masses throughout the lungs as well as more ill-defined infiltrative lesions in the lower lobes. Pleural-based left apical mass. Findings are most suspicious for metastatic disease. Septic emboli are less likely.
[2023-02-12] MEDS: HEPARIN SOD,PORK IN 0.45% NACL 25,000 UNIT in 0.45% NACL 1 250ML.BAG IV SCH (04:39)
[2023-02-12] MEDS: SODIUM CHLORIDE 0.9% 1,000 ML IV SCH ×2 (07:37→23:44)
[2023-02-12] MEDS: CEFEPIME 2 GM in SODIUM CHLORIDE 0.9% 100 ML IVPB SCH ×3 (07:41→23:44)
[2023-02-12 07:59] LABS: Appearance,Urine Clear (Clear); Color,Urine Yellow; Mucus,Urine Rare /hpf; RBC,Urine 8 /hpf (0-5); WBC,Urine 9 /hpf (0-5)
[2023-02-12 08:00] LABS: Bilirubin,Urine Negative (Negative); Glucose,Urine (UA) Negative (Negative); Ketones,Urine Negative (Negative); Protein,Urine Trace (Negative)
[2023-02-12 08:01] LABS: Blood,Urine Moderate (Negative); Leukocyte Esterase,Urine Negative (Negative); Nitrite,Urine Negative (Negative)
[2023-02-12 08:26] LABS: HCT 27.7 % (39.0-53.0); MCH 31.6 pg (25.0-35.0); MCHC 36.1 g/dL (31.0-37.0); MCV 87.4 fL (80.0-100.0); Mean Platelet Volume 9.1; RBC 3.17 m/uL (4.30-5.90); RDW 13.5 % (11.5-15.5); WBC 6.5 k/uL (3.8-10.6)
[2023-02-12 08:28] LABS: INR 1.3 (<1.2); Partial Thromboplastin Time 22.6 sec (22.0-30.0); Prothrombin Time 13.3 sec (10.0-12.5)
[2023-02-12 08:28] LABS: Platelet Count 60 k/uL (150-450)
[2023-02-12 08:30] LABS: African American GFR (CKD) >90 (>60 ml/min/1.73 sqM); Anion Gap 6 mmol/L; Blood Urea Nitrogen 39 mg/dL (9-20); Calcium 6.7 mg/dL (8.4-10.2); Carbon Dioxide 26 mmol/L (22-30); Chloride 91 mmol/L (98-107); Glucose 113 mg/dL (74-99); Non-African American GFR(CKD) >90 (>60 ml/min/1.73 sqM); Sodium 123 mmol/L (137-145)
[2023-02-12] MEDS: POTASSIUM CHLORIDE ER 20 MEQ TAB.ER PO SCH (08:30)
[2023-02-12] MEDS: NICOTINE 21MG/24HR PATCH TRANSDERM SCH (08:30)
[2023-02-12 08:42] LABS: Potassium 3.4 mmol/L (3.5-5.1)
--- NOTE | 2023-02-12 08:47 | US ---
EXAMINATION TYPE: US liver DATE OF EXAM: 02/12/2023 COMPARISON: NONE CLINICAL INDICATION: Male, 47 years old with history of abnormal lfts; abnormal LFT's TECHNIQUE: Multiple sonographic images of the right upper quadrant are obtained. FINDINGS: EXAM MEASUREMENTS: Liver Length: 17.3 cm Gallbladder Wall: 0.2 cm CBD: 0.4 cm Right Kidney: 13.0x4.8x5.5 cm STEEL BURNER NOTES: Pancreas: Duct dilated to 0.2cm, this is at the upper limits of normal at the body of the pancreas. Follow-up is recommended. Tail obscured by bowel Liver: enlarged Gallbladder: wnl, not fully distended Evidence for sonographic Miner's sign: No CBD: wnl Right Kidney: No hydronephrosis or masses seen exam limited by limited patient mobility and ability to hold deep breath, bowel, body habitus, and ri b shadows IMPRESSION: 1. Hepatomegaly with mild fatty infiltration. 2. Prominence of the pancreatic duct within the body of the pancreas. ERCP can be performed as clinic ally indicated.
[2023-02-12 08:57] LABS: Amphetamine Screen,Urine Detected (NotDetected); Cocaine Screen,Urine Not Detected (NotDetected); Opiate Screen,Urine Not Detected (NotDetected); Phencyclidine Screen,Urine Not Detected (NotDetected); Urn Cannabinoid Scrn Detected (NotDetected)
[2023-02-12 08:58] LABS: Barbiturate Screen,Urine Not Detected (NotDetected); Benzodiazepines Screen,Urine Not Detected (NotDetected); Methadone Screen, Urine Not Detected (NotDetected); Oxycodone Screen, Urine Not Detected (NotDetected); Tricyclic Antidepressant,Urine Not Detected (NotDetected)
[2023-02-12] MEDS ORDERED: ENOXAPARIN 40 MG/0.4 ML SYRINGE SQ SCH (09:00)
[2023-02-12 09:41] LABS: Total Bilirubin 1.8 mg/dL (0.2-1.3)
[2023-02-12 10:01] LABS: Band Neutrophils % 1 %; Lymphocytes # (M) 0.39 k/uL (1.0-4.8); Monocytes # (M) 0.33 k/uL (0-1.0); Neutrophils % (M) 89 %; Nucleated Red Blood Cells 0 /100 WBC (0-0); RBC Morphology Normal; Total Cells Counted 200
[2023-02-12] MEDS: HYDROmorphone 1 MG/ML 1 ML SYRINGE IVP PRN ×3 (10:08→18:09)
[2023-02-12] MEDS: ACETAMINOPHEN IV (For NPO) 1,000 MG in EMPTY BAG 1 BAG IVPB PRN (10:10)
[2023-02-12] MEDS: CYCLOBENZAPRINE 5 MG TAB PO PRN (10:13)
[2023-02-12] MEDS: VANCOMYCIN 1,000 MG in SODIUM CHLORIDE 0.9% 250 ML IVPB SCH ×2 (10:22→18:24)
--- NOTE | 2023-02-12 10:26 | P.CRDCN ---
History of Present Illness History of present illness: HISTORY OF PRESENT ILLNESS: This is a 47-year-old male with a past medical history significant for nicotine dependence, and polysubstance abuse including methamphetamines and heroin. Patient states he does not always use clean needles. Patient does not follow with a machine setter. We have been asked to see the patient in consultation for possible endocarditis. Patient examined at the bedside. Patient presented to the hospital for chief complaint of generalized weakness. The patient is apparently homeless in last used drugs 3 days ago. Patient presented to the hospital after his weakness got so bad he was having difficulty standing. He also reports having a rash all over his body. He denies chest pain or pressure. Denies SOB. Vital signs are stable. * EKG reveals sinus tachycardia with no signs of acute ischemia * Chest xray multifocal nodular hearing or masslike opacities. Unclear if these represent multifocal pneumonia or metastatic disease. * CT of the chest: Numerous predominantly cystic/necrotic masses throughout the lungs as well as more ill-defined infiltrative lesions in the lower lobes. Pleural-based left apical mass. Findings are mostly suspicious for metastatic disease. Septic emboli is less likely. * Laboratory data: WBC 16.0. Platelet count 80. Sodium 121. Potassium 3.0. Lactic acid 3.0. AST 62. ALT 52. Troponin 0.135. 0.149. * Current home cardiac medications include none * Most recent echocardiogram obtained in June 2021 revealed ejection fraction 60-65%, mild aortic regurgitation, mild tricuspid regurgitation * Cardiac catheterization history: Patient denies REVIEW OF SYSTEMS: At the time of my exam: CONSTITUTIONAL: Denies fever or chills. HEENT: Denies blurred vision, vision changes, or eye pain. Denies hemoptysis CARDIOVASCULAR: Denies chest pain. Denies orthopnea. Denies PND. Denies palpitations RESPIRATORY: Denies shortness of breath. GASTROINTESTINAL: Denies abdominal pain. Denies nausea or vomiting. HEMATOLOGIC: Denies bleeding disorders. GENITOURINARY: Denies any blood in urine. SKIN: Denies pruitis. Denies rash. PHYSICAL EXAM: VITAL SIGNS: Reviewed. GENERAL: Well-developed in no acute distress. Generalized rash present. HEENT: Head is normocephalic. Pupils are equal, round. Sclerae anicteric. Mucous membranes of the mouth are moist. Neck supple. No JVD or thyromegaly LUNGS: Respirations even and unlabored. Lungs essentially clear to auscultation bilaterally. HEART: Regular rate and rhythm. S1 and S2 heard. 3/6 systolic murmur noted. ABDOMEN: Soft. Nondistended. Nontender. EXTREMITIES: Normal range of motion. No clubbing or cyanosis. Peripheral pulses intact. No lower extremity edema NEUROLOGIC: Awake and alert. Oriented x 3. ASSESSMENT: Generalized weakness Generalized rash Sepsis with leukocytosis and lactic acidosis Numerous cystic/necrotic masses throughout the lungs per CT scan Possible endocarditis Thrombocytopenia Hyponatremia Hypokalemia Abnormal troponins Mildly elevated LFTs Nicotine dependence Polysubstance abuse including methamphetamines and IV heroin Homelessness PLAN: Obtain 2-D echo to assess cardiac structure and function Infectious disease has been consulted. Await evaluation Await results of blood cultures Will consider RAY pending results of blood cultures and transthoracic echo Continue IV Heparin pending echo results Further recommendations pending patient's course Nurse practitioner note has been reviewed by physician. Signing provider agrees with the documented findings, assessment, and plan of care. Past Medical History Past Medical History: No Reported History History of Any Multi-Drug Resistant Organisms: None Reported Past Surgical History: No Surgical Hx Reported Past Anesthesia/Blood Transfusion Reactions: No Reported Reaction Past Psychological History: No Psychological Hx Reported Smoking Status: Current every day smoker, Vaper Past Alcohol Use History: None Reported, Occasional Past Drug Use History: Heroin, IV Drug Use, Marijuana, Methamphetamine, Opiates Medications and Allergies Home Medications Medication Instructions Recorded Confirmed Type No Known Home Medications 02/21/17 02/12/23 History Allergies Allergy/AdvReac Type Severity Reaction Status Date / Time No Known Allergies Allergy Verified 02/12/23 06:33 Physical Exam Vitals: Vital Signs Temp Pulse Resp BP Pulse Ox 02/12/23 07:46 99.3 F 123 H 20 122/59 97 02/12/23 05:00 112 H 22 111/72 100 02/12/23 01:00 117 H 18 113/62 97 02/11/23 23:17 104 H 18 149/81 97 02/11/23 20:08 98 F 112 H 20 101/59 94 L Intake and Output 02/11/23 02/12/23 02/12/23 22:59 06:59 14:59 Other: Weight 58.967 kg Results 02/12/23 07:59 02/12/23 07:45 Cardiac Enzymes 02/11/23 02/11/23 02/12/23 Range/Units 21:01 23:45 02:59 AST 62 H (17-59) U/L Troponin I 0.135 H* 0.149 H* (0.000-0.034) ng/mL CBC 02/11/23 Range/Units 21:01 WBC 16.0 H (3.8-10.6) k/uL RBC 4.14 L (4.30-5.90) m/uL Hgb 12.6 L (13.0-17.5) gm/dL Hct 36.0 L (39.0-53.0) % Plt Count 80 L (150-450) k/uL Comprehensive Metabolic Panel 02/11/23 Range/Units 21:01 Sodium 121 L (137-145) mmol/L Potassium 3.0 L (3.5-5.1) mmol/L Chloride 81 L (98-107) mmol/L Carbon Dioxide 28 (22-30) mmol/L BUN 47 H (9-20) mg/dL Creatinine 1.07 (0.66-1.25) mg/dL Glucose 86 (74-99) mg/dL Calcium 7.6 L (8.4-10.2) mg/dL AST 62 H (17-59) U/L ALT 52 H (4-49) U/L Alkaline Phosphatase 112 (38-126) U/L Total Protein 7.2 (6.3-8.2) g/dL Albumin 2.7 L (3.5-5.0) g/dL Current Medications Generic Name Dose Route Start Last Admin Trade Name [facility] PRN Reason Stop Dose Admin Heparin Sodium (Porcine) 0 unit 02/12/23 03:51 Heparin Sodium 1,000 Un/Ml (10ml Vl) IV PER PROTOCOL PRN Low PTT Protocol Hydromorphone HCl 0.5 mg 02/12/23 02:16 Hydromorphone 0.5 Mg/0.5 Ml Syringe IVP Q3HR PRN Moderate Pain (Scale 4 to 6) Hydromorphone HCl 1 mg 02/12/23 02:16 Hydromorphone 1 Mg/Ml 1 Ml Syringe IVP Q3HR PRN Severe Pain (Scale 7 to 10) Vancomycin HCl 1,250 mg/ 250 mls @ 125 mls/hr 02/12/23 13:00 Sodium Chloride IVPB Q12H RACHID Cefepime HCl 2 gm/ Sodium 100 mls @ 200 mls/hr 02/12/23 08:00 02/12/23 07:41 Chloride IVPB 200 mls/hr Q8HR RACHID Administration Protocol Heparin Sodium/Sodium Chloride 250 mls @ 7.076 mls/hr 02/12/23 04:00 02/12/23 04:39 25,000 unit/ Sodium Chloride IV 12 units/kg/hr .Q24H RACHID 7.076 mls/hr Administration Protocol 12 UNITS/KG/HR Sodium Chloride 1,000 mls @ 130 mls/hr 02/12/23 07:15 02/12/23 07:37 Saline 0.9% IV 130 mls/hr .[id number] RACHID Administration Miscellaneous Information 1 each 02/11/23 23:24 Vancomycin Iv Per Pharmacy 1 Each Misc MISCELLANE DIRECTED PRN Per Protocol Protocol Miscellaneous Information 1 each 02/11/23 23:27 Rx Info: Iv Contrast Was Given 1 Each Misc MISCELLANE 02/13/23 23:27 DAILY PRN Per Protocol Naloxone HCl 0.2 mg 02/12/23 02:16 Naloxone 0.4 Mg/Ml 1 Ml Vial IV Q2M PRN Opioid Reversal Nicotine 1 patch 02/12/23 09:00 Nicotine 21mg/24hr Patch TRANSDERM DAILY RACHID Ondansetron HCl 4 mg 02/12/23 02:16 Ondansetron 4 Mg/2 Ml Vial IVP Q8HR PRN Nausea And Vomiting Potassium Chloride 40 meq 02/12/23 09:00 Potassium Chloride Er 20 Meq Tab.Er PO DAILY RACHID Intake and Output 02/11/23 02/12/23 02/12/23 22:59 06:59 14:59 Other: Weight 58.967 kg 02/11/23 21:01 02/11/23 21:01
[2023-02-12] MEDS: HEPARIN SODIUM 1,000 UN/ML (10ML VL) IV PRN ×2 (10:29→16:38)
--- NOTE | 2023-02-12 10:46 | P.NPCON ---
History of Present Illness - Reason for Consult hyponatremia - History of Present Illness Reason for consultation: Hyponatremia History of present illness: Patient is a 47-year-old male seen in initial consultation for hyponatremia. Patient's sodium level on admission was 121 and is up to 123 this morning. He received 2 L of normal saline bolus and is currently maintained on normal saline at 1 30 mL an hour. Patient came to the hospital due to generalized weakness. Patient states his body was achy and also noticed a rash all over his body about 2-3 days ago. Patient states he is homeless. He does admit to using IV heroin as well as metamphetamines. He admits to smoking. Denies cocaine use. He denies excessive fluid intake. Denies alcohol use. No vomiting or diarrhea. Denies use of diuretics. Denies history of HIV or hepatitis. Denies personal or family history of renal disease. Denies personal history of malignancy. Patient describes the rash as pruritic without any drainage. No gross hematuria or dysuria. Vital signs are stable. General: No acute distress. HEENT: Head exam is unremarkable. LUNGS: No audible rhonchi or wheezes. HEART: Rate and Rhythm are regular. ABDOMEN: Nontender. EXTREMITITES: No edema. Petechial erythematous rash noted. No drainage. Past Medical History Past Medical History: No Reported History Additional Past Medical History / Comment(s): hep c History of Any Multi-Drug Resistant Organisms: None Reported Past Surgical History: No Surgical Hx Reported Past Anesthesia/Blood Transfusion Reactions: No Reported Reaction Past Psychological History: No Psychological Hx Reported Smoking Status: Current every day smoker, Vaper Past Alcohol Use History: None Reported, Occasional Past Drug Use History: Heroin, IV Drug Use, Marijuana, Methamphetamine, Opiates Medications and Allergies Home Medications Medication Instructions Recorded Confirmed Type No Known Home Medications 02/21/17 02/12/23 History Allergies Allergy/AdvReac Type Severity Reaction Status Date / Time No Known Allergies Allergy Verified 02/12/23 06:33 Physical Exam Vitals: Vital Signs Temp Pulse Resp BP Pulse Ox 02/12/23 10:10 111 H 17 110/65 97 02/12/23 09:02 122 H 20 96 02/12/23 08:30 121 H 21 110/61 96 02/12/23 07:46 99.3 F 123 H 20 122/59 97 02/12/23 05:00 112 H 22 111/72 100 02/12/23 01:00 117 H 18 113/62 97 02/11/23 23:17 104 H 18 149/81 97 02/11/23 20:08 98 F 112 H 20 101/59 94 L Intake and Output 02/11/23 02/12/23 02/12/23 22:59 06:59 14:59 Intake Total 41.395 Balance 41.395 Intake: Intake, IV Titration 41.395 Amount Heparin Sod,Pork in 0.45% 41.395 NaCl 25,000 unit In 0.45 % NaCl 1 250ml.bag @ 12 UNITS/KG/HR 7.076 mls/hr IV .Q24H [facility] Rx#: [id number] Other: Weight 58.967 kg 58.967 kg Results - Lab Results Most recent lab results Calcium 6.7 mg/dL (8.4-10.2) L 02/12/23 07:45 Phosphorus 4.1 mg/dL (2.5-4.5) 02/11/23 23:45 Magnesium 2.0 mg/dL (1.6-2.3) 02/11/23 23:45 02/12/23 07:59 02/12/23 07:45 Assessment and Plan Plan: Assessment: 1. Hypovolemic hyponatremia with component of poor solute intake. Urine osmolality 399. Sodium level 123 today. Urine osmolality 399. 2. Hypokalemia from poor intake. 3. Petechial erythematous rash. UA with trace protein and RBCs. 4. Polysubstance drug abuse. 5. Proteinuria and hematuria noted on UA. Plan: Decreased rate of IV fluids to 50 mL an hour. Add 1200 mL fluid restriction. Encourage oral intake. Follow-up urine sodium level. Check TSH. Repeat UA. Check UPC. Check serologies. Follow-up echocardiogram. Repeat BMP this evening. Thank you for the consultation. I will continue to follow the patient with you during his hospital stay.
[2023-02-12 10:57] LABS: Creatine Kinase <20 U/L (55-170)
[2023-02-12 12:10] LABS: Creatinine,Urine Random 68.7 mg/dL
[2023-02-12 12:47] LABS: C Reactive Protein 8.9 mg/dL (<1.0)
[2023-02-12] MEDS ORDERED: VANCOMYCIN 1,250 MG in SODIUM CHLORIDE 0.9% 250 ML IVPB SCH (13:00)
--- NOTE | 2023-02-12 14:42 | P.PN ---
Subjective Progress Note Date: 02/12/23 Patient is a 47-year-old male with ongoing IV drug use who is experiencing homelessness and is dependent on nicotine products who presented to the emergency room for generalized body aches and rash. On arrival to the ER he was tachycardic with a pulse of 112. Initial labs performed in the emergency depar tment were remarkable for white blood cell count of 60, platelets of 80, sodium 121, potassium 3, chloride 81, BUN 47, lactic acid 3, bilirubin 1.8, AST 65, ALT 52. Initial influenza A/B/RSV/COVID-19 testing was negative. Patient had troponins drawn several hours later which were positive at 0.135. He underwent a CT chest which showed numerous predominant cystic/necrotic masses throughout the lungs with a pleural-based left apical mass findings are suspicious for metastatic disease, septic emboli less likely. Initial EKG showed some J-point depression with sinus tachycardia at a rate of 112. In the ER he was given 2 L of normal saline and started on normal saline at 130 cc/h. He was also given a dose of cefepime. Arrangements were made for admission. Troponin was slightly elevated and the patient was therefore started on heparin drip. He was continued on vancomycin and cefepime. Cardiology, infectious disease, and nephrology were consulted. Patient seen and examined at bedside. Patient seen and examined at bedside. He has been using heroin for approximately 15 years. He denies any history of endocarditis or bloodstream infections in the past. Currently he is feeling so mewhat short of breath and is having a lot of pain in his back and bilateral lower extremities. He believes that his rash started within the last couple of days. He states he has not been eating or drinking much as he has not had money for food. He denies any nausea, vomiting, diarrhea. He does not believe he is going through heroin withdrawal but he has gone through this in the past. Currently he is using heroin every few days. Vital signs reviewed General: Ill appearing, moderate distress, appears at stated age Cardiovascular: S1S2 tachy, no murmur, positive posterior tibial pulse see ateral, Lungs: Course bs bilateral, no rhonchi, no rales, no accessory muscle use Derm: Petechial rash swished convalescence covering trunk and bilateral thighs and arms with sparing of the palms and soles. Abdominal: Soft, nontender to palpation, no guarding, no appreciable organomegaly Ext: No gross muscle atrophy, no edema b/l lower extremities, no contractures Neuro: CN II-XI grossly intact, no focal neuro deficits Psych: Alert, oriented, appropriate affect Assessment/Plan: Probable septic emboli with concerns for infectious endocarditis IVDA Elevated tropnin, suspect due to demand ischemia - check echo - await blood cultures - continue with vanco IV D # 1, Monitor Cr and trough for toxicity - cefepime 2 gram IVPB q 8 hours D#1 - await cardio and ID recs Dermatitis, appears vasulitic - check BING, DS DNA, C-anca, P-anca, HIV, Hep profile, complement levels Transaminitis - await liver US - Await repeat labs Hyponatremia, undetermined etiology - stat repeat BMP - continue with NS at 130 cc/hr until this is available - consult nephrology - seizure precautions - await urine osmolality and sodium Hypokalemia - was replaced in the ED, await recheck labs Nicotine dependency - nicotine replacement Imaging: None new Data Review: Await AM labs DVT prophylaxis: Heparin gtt Anticipated discharge date: pending clinical course Anticipated discharge place: pending clinical course This dictation was prepared using [employer] voice recognition software. Though every attempt is made to correct errors during dictation some may still exist. Objective - Vital Signs Vital signs: Vital Signs Temp 99.3 F 02/12/23 07:46 Pulse 123 H 02/12/23 07:46 Resp 20 02/12/23 07:46 BP 122/59 02/12/23 07:46 Pulse Ox 97 02/12/23 07:46 FiO2 Intake & Output 02/11/23 02/12/23 02/12/23 18:59 06:59 18:59 Weight 58.967 kg - Labs CBC & Chem 7: 02/12/23 07:59 02/12/23 07:45 Labs: Abnormal Lab Results - Last 24 Hours (Table) 02/11/23 02/11/23 02/11/23 Range/Units 21:01 21:01 21:01 WBC 16.0 H (3.8-10.6) k/uL RBC 4.14 L (4.30-5.90) m/uL Hgb 12.6 L (13.0-17.5) gm/dL Hct 36.0 L (39.0-53.0) % Plt Count 80 L (150-450) k/uL Sodium 121 L (137-145) mmol/L Potassium 3.0 L (3.5-5.1) mmol/L Chloride 81 L (98-107) mmol/L BUN 47 H (9-20) mg/dL Plasma Lactic Acid Paulo 3.0 H* (0.7-2.0) mmol/L Calcium 7.6 L (8.4-10.2) mg/dL Total Bilirubin 1.8 H (0.2-1.3) mg/dL AST 62 H (17-59) U/L ALT 52 H (4-49) U/L Troponin I (0.000-0.034) ng/mL Albumin 2.7 L (3.5-5.0) g/dL Urine Protein (Negative) Urine RBC (0-5) /hpf Urine WBC (0-5) /hpf Urine Mucus (None) /hpf 02/11/23 02/12/23 02/12/23 Range/Units 23:45 02:59 07:30 WBC (3.8-10.6) k/uL RBC (4.30-5.90) m/uL Hgb (13.0-17.5) gm/dL Hct (39.0-53.0) % Plt Count (150-450) k/uL Sodium (137-145) mmol/L Potassium (3.5-5.1) mmol/L Chloride (98-107) mmol/L BUN (9-20) mg/dL Plasma Lactic Acid Paulo (0.7-2.0) mmol/L Calcium (8.4-10.2) mg/dL Total Bilirubin (0.2-1.3) mg/dL AST (17-59) U/L ALT (4-49) U/L Troponin I 0.135 H* 0.149 H* (0.000-0.034) ng/mL Albumin (3.5-5.0) g/dL Urine Protein Trace H (Negative) Urine RBC 8 H (0-5) /hpf Urine WBC 9 H (0-5) /hpf Urine Mucus Rare H (None) /hpf
[2023-02-12 16:31] LABS: Creatinine,Urine Random 65.4 mg/dL; Protein/Creatinine Ratio,Urine 0.229
[2023-02-12 17:23] LABS: Hepatitis C IgG Antibody Reactive (Non-Reactive)
[2023-02-12 17:36] LABS: Hepatitis A Antibody IgM Nonreactive; Hepatitis B Core IgM Nonreactive
[2023-02-12 18:48] LABS: African American GFR (CKD) >90 (>60 ml/min/1.73 sqM); Anion Gap 5 mmol/L; Blood Urea Nitrogen 36 mg/dL (9-20); Calcium 6.8 mg/dL (8.4-10.2); Carbon Dioxide 27 mmol/L (22-30); Chloride 95 mmol/L (98-107); Glucose 130 mg/dL (74-99); Non-African American GFR(CKD) >90 (>60 ml/min/1.73 sqM); Potassium 3.4 mmol/L (3.5-5.1); Sodium 127 mmol/L (137-145)
[2023-02-12 19:02] LABS: Albumin 1.8 g/dL (3.8-4.9); Protein, Total 5.5 g/dL (6.2-8.2)
[2023-02-12 19:23] LABS: Hepatitis B Surface Antigen Conf_React
[2023-02-13] MEDS: HYDROmorphone 1 MG/ML 1 ML SYRINGE IVP PRN ×6 (00:04→23:36)
[2023-02-13] MEDS: ACETAMINOPHEN IV (For NPO) 1,000 MG in EMPTY BAG 1 BAG IVPB PRN (00:15)
[2023-02-13] MEDS: VANCOMYCIN 1,000 MG in SODIUM CHLORIDE 0.9% 250 ML IVPB SCH ×2 (02:45→10:59)
[2023-02-13 03:10] LABS: Rheumatoid Factor, Qnt <15 IU/mL (0-15)
[2023-02-13] MEDS: HEPARIN SODIUM 1,000 UN/ML (10ML VL) IV PRN (03:37)
[2023-02-13] MEDS: HEPARIN SOD,PORK IN 0.45% NACL 25,000 UNIT in 0.45% NACL 1 250ML.BAG IV SCH (03:49)
--- NOTE | 2023-02-13 08:58 | P.CONS ---
History of Present Illness - Reason for Consult Consult date: 02/12/23 Infective endocarditis Requesting physician: Fátima Naranjo - Chief Complaint Weakness and rash to lower extremity x few days - History of Present Illness Patient is a 47-year-old male with a past medical history significant for hepatitis C history of IV drug use and current smoker patient presenting to the ER last night for evaluation of generalized body itchy rash that apparently has been going on for the last few days patient also complaining of generalized weakness denies any headache or URI symptoms no chest pain shortness with occasional cough no nausea no vomiting no abdominal pain or diarrhea patient denies having any urethral drainage or genital ulcers and is not sexually active over the last 6 to 8 months denies any joint swelling no rash on the palms or the soles patient on presentation to the hospital was afebrile did have 1 low- grade fever of 99.3 F patient was tachycardic not hypotensive or hypoxic white count of 16,000 creatinine was 1.07 sodium and potassium was low the patient liver enzymes are mildly elevated urine has been relatively negative urine Duraxin was positive for amphetamines methamphetamines and marijuana tested positive for hepatitis C influenza RSV and COVID testing was negative blood cultures obtained which are currently pending patient did have a chest x-ray multiple nodular appearing almost like opacities patient did have a CT of the chest numerous predominantly cystic and necrotic masses throughout the lungs as well as more ill-defined infiltrate lesion in the lower lobes findings are most suspicious for metastatic disease septic emboli less likely patient was admitted the hospital has been started on cefepime and vancomycin infectious he was consulted for further management especially concerning for skin lesion and suspicious for endocarditis Review of Systems Positive point and negatives has been mentioned in the HPI, complete review of systems was performed and all other systems are negative Past Medical History Past Medical History: No Reported History Additional Past Medical History / Comment(s): hep c History of Any Multi-Drug Resistant Organisms: None Reported Past Surgical History: No Surgical Hx Reported Past Anesthesia/Blood Transfusion Reactions: No Reported Reaction Past Psychological History: No Psychological Hx Reported Smoking Status: Current every day smoker, Vaper Past Alcohol Use History: None Reported, Occasional Past Drug Use History: Heroin, IV Drug Use, Marijuana, Methamphetamine, Opiates Medications and Allergies Home Medications Medication Instructions Recorded Confirmed Type No Known Home Medications 02/21/17 02/12/23 History Allergies Allergy/AdvReac Type Severity Reaction Status Date / Time No Known Allergies Allergy Verified 02/12/23 06:33 Physical Exam Vitals: Vital Signs Temp Pulse Resp BP Pulse Ox 02/12/23 10:10 111 H 17 110/65 97 02/12/23 09:02 122 H 20 96 02/12/23 08:30 121 H 21 110/61 96 02/12/23 07:46 99.3 F 123 H 20 122/59 97 02/12/23 05:00 112 H 22 111/72 100 02/12/23 01:00 117 H 18 113/62 97 02/11/23 23:17 104 H 18 149/81 97 02/11/23 20:08 98 F 112 H 20 101/59 94 L Intake and Output 02/11/23 02/12/23 02/12/23 22:59 06:59 14:59 Other: Weight 58.967 kg 58.967 kg GENERAL DESCRIPTION: Middle-aged male lying in bed, no distress. No tachypnea or accessory muscle of respiration use. HEENT: Shows Pallor , no scleral icterus. Oral mucous membrane is dry. No pharyngeal erythema or thrush NECK: Trachea central, no thyromegaly. LUNGS: Unlabored breathing. Clear to auscultation anteriorly. No wheeze or crackle. HEART: S1, S2, regular rate and rhythm. Systolic murmur ABDOMEN: Soft, no tenderness , guarding or rigidity, no organomegaly EXTREMITIES: No edema of feet. SKIN: Petechiae mostly to the lower extremity no blisters no vesicles or drainage NEUROLOGICAL: The patient is awake, alert, oriented x3, mood and affect normal. Results CBC & Chem 7: 02/16/23 07:58 02/16/23 07:58 Labs: Abnormal Lab Results - Last 24 Hours (Table) 02/11/23 02/11/23 02/11/23 Range/Units 21:01 21:01 21:01 WBC 16.0 H (3.8-10.6) k/uL RBC 4.14 L (4.30-5.90) m/uL Hgb 12.6 L (13.0-17.5) gm/dL Hct 36.0 L (39.0-53.0) % Plt Count 80 L (150-450) k/uL Lymphocytes # (Manual) (1.0-4.8) k/uL PT (10.0-12.5) sec INR (<1.2) Sodium 121 L (137-145) mmol/L Potassium 3.0 L (3.5-5.1) mmol/L Chloride 81 L (98-107) mmol/L BUN 47 H (9-20) mg/dL Glucose (74-99) mg/dL Osmolality (280-301) mosm/kg Plasma Lactic Acid Paulo 3.0 H* (0.7-2.0) mmol/L Calcium 7.6 L (8.4-10.2) mg/dL Total Bilirubin 1.8 H (0.2-1.3) mg/dL AST 62 H (17-59) U/L ALT 52 H (4-49) U/L Troponin I (0.000-0.034) ng/mL Albumin 2.7 L (3.5-5.0) g/dL Urine Protein (Negative) Urine RBC (0-5) /hpf Urine WBC (0-5) /hpf Urine Mucus (None) /hpf Ur Amphetamines Screen (NotDetected) U Methamphetamines Scrn (NotDetected) U Marijuana (THC) Screen (NotDetected) 02/11/23 02/12/23 02/12/23 Range/Units 23:45 02:59 07:30 WBC (3.8-10.6) k/uL RBC (4.30-5.90) m/uL Hgb (13.0-17.5) gm/dL Hct (39.0-53.0) % Plt Count (150-450) k/uL Lymphocytes # (Manual) (1.0-4.8) k/uL PT (10.0-12.5) sec INR (<1.2) Sodium (137-145) mmol/L Potassium (3.5-5.1) mmol/L Chloride (98-107) mmol/L BUN (9-20) mg/dL Glucose (74-99) mg/dL Osmolality (280-301) mosm/kg Plasma Lactic Acid Paulo (0.7-2.0) mmol/L Calcium (8.4-10.2) mg/dL Total Bilirubin (0.2-1.3) mg/dL AST (17-59) U/L ALT (4-49) U/L Troponin I 0.135 H* 0.149 H* (0.000-0.034) ng/mL Albumin (3.5-5.0) g/dL Urine Protein Trace H (Negative) Urine RBC 8 H (0-5) /hpf Urine WBC 9 H (0-5) /hpf Urine Mucus Rare H (None) /hpf Ur Amphetamines Screen (NotDetected) U Methamphetamines Scrn (NotDetected) U Marijuana (THC) Screen (NotDetected) 02/12/23 02/12/23 02/12/23 Range/Units 07:45 07:45 07:45 WBC (3.8-10.6) k/uL RBC (4.30-5.90) m/uL Hgb (13.0-17.5) gm/dL Hct (39.0-53.0) % Plt Count (150-450) k/uL Lymphocytes # (Manual) (1.0-4.8) k/uL PT (10.0-12.5) sec INR (<1.2) Sodium 123 L (137-145) mmol/L Potassium 3.4 L (3.5-5.1) mmol/L Chloride 91 L (98-107) mmol/L BUN 39 H (9-20) mg/dL Glucose 113 H (74-99) mg/dL Osmolality 268 L (280-301) mosm/kg Plasma Lactic Acid Paulo (0.7-2.0) mmol/L Calcium 6.7 L (8.4-10.2) mg/dL Total Bilirubin (0.2-1.3) mg/dL AST (17-59) U/L ALT (4-49) U/L Troponin I 0.127 H* (0.000-0.034) ng/mL Albumin (3.5-5.0) g/dL Urine Protein (Negative) Urine RBC (0-5) /hpf Urine WBC (0-5) /hpf Urine Mucus (None) /hpf Ur Amphetamines Screen Detected H (NotDetected) U Methamphetamines Scrn Detected H (NotDetected) U Marijuana (THC) Screen Detected H (NotDetected) 02/12/23 02/12/23 02/12/23 Range/Units 07:45 07:45 07:59 WBC (3.8-10.6) k/uL RBC 3.17 L (4.30-5.90) m/uL Hgb 10.0 L D (13.0-17.5) gm/dL Hct 27.7 L (39.0-53.0) % Plt Count 60 L (150-450) k/uL Lymphocytes # (Manual) 0.39 L (1.0-4.8) k/uL PT 13.3 H (10.0-12.5) sec INR 1.3 H (<1.2) Sodium (137-145) mmol/L Potassium (3.5-5.1) mmol/L Chloride (98-107) mmol/L BUN (9-20) mg/dL Glucose (74-99) mg/dL Osmolality (280-301) mosm/kg Plasma Lactic Acid Paulo (0.7-2.0) mmol/L Calcium (8.4-10.2) mg/dL Total Bilirubin 1.8 H (0.2-1.3) mg/dL AST (17-59) U/L ALT (4-49) U/L Troponin I (0.000-0.034) ng/mL Albumin (3.5-5.0) g/dL Urine Protein (Negative) Urine RBC (0-5) /hpf Urine WBC (0-5) /hpf Urine Mucus (None) /hpf Ur Amphetamines Screen (NotDetected) U Methamphetamines Scrn (NotDetected) U Marijuana (THC) Screen (NotDetected) Assessment and Plan (1) Bacteremia Status: Acute Code(s): R78.81 - BACTEREMIA SNOMED Code(s): 0965871 (2) Petechiae Status: Acute Code(s): R23.3 - SPONTANEOUS ECCHYMOSES SNOMED Code(s): 960742766 (3) Infective endocarditis of tricuspid valve Status: Acute Priority: High Code(s): I33.0 - ACUTE AND SUBACUTE INFECTIVE ENDOCARDITIS SNOMED Code(s): 557615879 (4) Sepsis Status: Acute Priority: High Code(s): A41.9 - SEPSIS, UNSPECIFIED ORGANISM SNOMED Code(s): 90079379 Plan: 1patient presented to the hospital with multiple symptoms especially with weakness patient was noted to have significant amount timidity on the chest x- ray and a CT of the chest highly suspicious for septic emboli at this patient did have history of IV drug use with the last drink was about 3 days ago concerning for septic emboli and endocarditis likely from Staph aureus 2-patient also have petechiae especially to the lower extremity could be related to his thrombocytopenia other infectious etiology not excluded and serology has been requested by admitting physician results will be followed 3-we will wait for the echocardiogram and the blood culture to finalize 4-continue with the vancomycin and cefepime while waiting for the culture to finalize We will follow on clinical condition and cultures to further adjust medication if needed Thank you for this consultation we will follow the patient along with you Dictation was produced using [employer] dictation software. please excuse any gramm atical, word or spelling errors. Time with Patient: Greater than 30
[2023-02-13] MEDS: POTASSIUM CHLORIDE ER 20 MEQ TAB.ER PO SCH (09:16)
[2023-02-13] MEDS: NICOTINE 21MG/24HR PATCH TRANSDERM SCH (09:16)
[2023-02-13] MEDS: CEFEPIME 2 GM in SODIUM CHLORIDE 0.9% 100 ML IVPB SCH (09:16)
[2023-02-13] MEDS ORDERED: ACETAMINOPHEN TAB 500 MG TAB PO PRN (09:42)
[2023-02-13] MEDS: CYCLOBENZAPRINE 5 MG TAB PO PRN ×3 (09:58→20:19)
[2023-02-13 10:03] LABS: African American GFR (CKD) >90 (>60 ml/min/1.73 sqM); Anion Gap 4 mmol/L; Blood Urea Nitrogen 37 mg/dL (9-20); Calcium 6.7 mg/dL (8.4-10.2); Carbon Dioxide 22 mmol/L (22-30); Chloride 105 mmol/L (98-107); Glucose 107 mg/dL (74-99); Magnesium 2.2 mg/dL (1.6-2.3); Non-African American GFR(CKD) >90 (>60 ml/min/1.73 sqM); Potassium 3.9 mmol/L (3.5-5.1); Sodium 131 mmol/L (137-145)
[2023-02-13 10:05] LABS: HCT 28.1 % (39.0-53.0); HGB 9.3 gm/dL (13.0-17.5); MCH 29.8 pg (25.0-35.0); MCV 90.2 fL (80.0-100.0); Mean Platelet Volume 9.2; RBC 3.11 m/uL (4.30-5.90); RDW 13.4 % (11.5-15.5); WBC 6.7 k/uL (3.8-10.6)
[2023-02-13 10:09] LABS: INR 1.3 (<1.2); Prothrombin Time 13.3 sec (10.0-12.5)
[2023-02-13 10:10] LABS: NT-Pro-B-Type Natriuretic Pept 2680 pg/mL
[2023-02-13 10:11] LABS: Platelet Count 90 k/uL (150-450)
[2023-02-13 11:14] LABS: Lymphocytes # (M) 1.01 k/uL (1.0-4.8); Monocytes # (M) 0.47 k/uL (0-1.0); Neutrophils # (M) 5.23 k/uL (1.3-7.7); Neutrophils % (M) 78 %; Nucleated Red Blood Cells 0 /100 WBC (0-0); Total Cells Counted 100
[2023-02-13 11:15] LABS: RBC Morphology Normal
--- NOTE | 2023-02-13 11:29 | P.PN ---
Subjective Patient is seen in follow-up for hyponatremia. Sodium level improving. On IV fluids. Oral intake is good. Vital signs are stable. General: No acute distress. HEENT: Head exam is unremarkable. LUNGS: No audible rhonchi or wheezes. HEART: Rate and Rhythm are regular. ABDOMEN: Nontender. EXTREMITITES: No edema. Rash noted. Objective - Vital Signs Vital signs: Vital Signs Temp 97.8 F 02/13/23 08:00 Pulse 103 H 02/13/23 08:00 Resp 20 02/13/23 08:00 BP 120/72 02/13/23 08:00 Pulse Ox 100 02/13/23 08:00 FiO2 Intake & Output 02/12/23 02/13/23 02/13/23 18:59 06:59 18:59 Intake Total 335.939 118.789 225 Output Total 400 Balance 335.939 -281.211 225 Weight 58.967 kg 68.6 kg Intake: Intake, IV Titration 95.939 118.789 Amount Heparin Sod,Pork in 0.45% 95.939 118.789 NaCl 25,000 unit In 0.45 % NaCl 1 250ml.bag @ 12 UNITS/KG/HR 7.076 mls/hr IV .Q24H [facility] Rx#: [id number] Oral 240 225 Output: Urine 400 Other: Voiding Method Diaper Urinal Urinal Diaper Diaper - Labs CBC & Chem 7: 02/13/23 08:56 02/13/23 08:56 Labs: Abnormal Lab Results - Last 24 Hours (Table) 02/12/23 02/12/23 02/12/23 Range/Units 07:45 09:50 09:50 RBC (4.30-5.90) m/uL Hgb (13.0-17.5) gm/dL Hct (39.0-53.0) % Plt Count (150-450) k/uL ESR 49 H (0-15) mm/Hr PT (10.0-12.5) sec INR (<1.2) APTT (22.0-30.0) sec Sodium (137-145) mmol/L Potassium (3.5-5.1) mmol/L Chloride (98-107) mmol/L BUN (9-20) mg/dL Glucose (74-99) mg/dL Calcium (8.4-10.2) mg/dL C-Reactive Protein 8.9 H (<1.0) mg/dL Total Protein (PEP) (6.2-8.2) g/dL Albumin (PEP) (3.8-4.9) g/dL Ur Random Sodium <20 L (40-220) mmol/L IgG (700.0-1600.0) mg/dL IgA (60.0-350.0) mg/dL Hep C IgG Ab (Non-Reactive) 02/12/23 02/12/23 02/12/23 Range/Units 09:50 14:35 14:35 RBC (4.30-5.90) m/uL Hgb (13.0-17.5) gm/dL Hct (39.0-53.0) % Plt Count (150-450) k/uL ESR (0-15) mm/Hr PT (10.0-12.5) sec INR (<1.2) APTT 34.0 H (22.0-30.0) sec Sodium (137-145) mmol/L Potassium (3.5-5.1) mmol/L Chloride (98-107) mmol/L BUN (9-20) mg/dL Glucose (74-99) mg/dL Calcium (8.4-10.2) mg/dL C-Reactive Protein (<1.0) mg/dL Total Protein (PEP) 5.5 L (6.2-8.2) g/dL Albumin (PEP) 1.8 L (3.8-4.9) g/dL Ur Random Sodium (40-220) mmol/L IgG 1908.0 H (700.0-1600.0) mg/dL IgA 699.0 H (60.0-350.0) mg/dL Hep C IgG Ab Reactive A (Non-Reactive) 02/12/23 02/13/23 02/13/23 Range/Units 14:35 08:56 08:56 RBC 3.11 L (4.30-5.90) m/uL Hgb 9.3 L (13.0-17.5) gm/dL Hct 28.1 L (39.0-53.0) % Plt Count 90 L (150-450) k/uL ESR (0-15) mm/Hr PT (10.0-12.5) sec INR (<1.2) APTT (22.0-30.0) sec Sodium 127 L 131 L (137-145) mmol/L Potassium 3.4 L (3.5-5.1) mmol/L Chloride 95 L (98-107) mmol/L BUN 36 H 37 H (9-20) mg/dL Glucose 130 H 107 H (74-99) mg/dL Calcium 6.8 L 6.7 L (8.4-10.2) mg/dL C-Reactive Protein (<1.0) mg/dL Total Protein (PEP) (6.2-8.2) g/dL Albumin (PEP) (3.8-4.9) g/dL Ur Random Sodium (40-220) mmol/L IgG (700.0-1600.0) mg/dL IgA (60.0-350.0) mg/dL Hep C IgG Ab (Non-Reactive) 02/13/23 02/13/23 Range/Units 08:56 08:56 RBC (4.30-5.90) m/uL Hgb (13.0-17.5) gm/dL Hct (39.0-53.0) % Plt Count (150-450) k/uL ESR (0-15) mm/Hr PT 13.3 H (10.0-12.5) sec INR 1.3 H (<1.2) APTT 32.4 H (22.0-30.0) sec Sodium (137-145) mmol/L Potassium (3.5-5.1) mmol/L Chloride (98-107) mmol/L BUN (9-20) mg/dL Glucose (74-99) mg/dL Calcium (8.4-10.2) mg/dL C-Reactive Protein (<1.0) mg/dL Total Protein (PEP) (6.2-8.2) g/dL Albumin (PEP) (3.8-4.9) g/dL Ur Random Sodium (40-220) mmol/L IgG (700.0-1600.0) mg/dL IgA (60.0-350.0) mg/dL Hep C IgG Ab (Non-Reactive) Microbiology - Last 24 Hours (Table) 02/11/23 23:48 Blood Culture Gram Stain - Preliminary Blood 02/11/23 23:30 Blood Culture Gram Stain - Preliminary Blood Assessment and Plan Plan: Assessment: 1. Hypovolemic hyponatremia with component of poor solute intake. Urine osmolality 399. Urine sodium less than 20. TSH normal. Sodium level 131 today. 2. Hypokalemia from poor intake. Replaced. Better. 3. Petechial erythematous rash. UA with trace protein and RBCs. 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 Also can be petechiae induced from infective endocarditis. 4. Polysubstance drug abuse. 5. Proteinuria and hematuria noted on UA. UPC 0.22. 6. Gram-positive bacteremia with concern for underlying endocarditis. Plan: Maintain gentle IV hydration. Liberalize fluid restriction to 1500 mL per patient request. Encouraged oral intake. Repeat UA pending. Follow-up serologies. Follow-up echocardiogram. Check cryoglobulin levels. Consider skin biopsy. Discussed kidney biopsy for definitive diagnosis pending above results. Discussed with primary team.
--- NOTE | 2023-02-13 11:54 | CA ---
Transthoracic Echo Report Name: Tj Julio Age: 47 Gender: M : 1975 Exam Date: 02/12/2023 15:07 Exam Location: [place] [facility] Ht (in): 67 Wt (lb): 130 Ordering Physician: Reggie Kenny Attending/Referring Phys: Death Claim Examiner Yuly Rodriguez [facility] Procedure CPT: Indications: r/o endocarditis Cardiac Hx: Technical Quality: Fair Contrast 1: Total Dose (mL): Contrast 2: Total Dose (mL): MEASUREMENTS (Male / Female) Normal Values 2D ECHO LV Diastolic Diameter PLAX 4.0 cm 4.2 - 5.9 / 3.9 - 5.3 cm LV Systolic Diameter PLAX 2.7 cm IVS Diastolic Thickness 1.0 cm 0.6 - 1.0 / 0.6 - 0.9 cm LVPW Diastolic Thickness 1.0 cm 0.6 - 1.0 / 0.6 - 0.9 cm LV Relative Wall Thickness 0.5 LVOT Diameter 2.0 cm Ascending Aorta Diameter 2.9 cm M-MODE Aortic Root Diameter MM 2.7 cm LA Systolic Diameter MM 3.6 cm LA Ao Ratio MM 1.3 AV Cusp Separation MM 2.3 cm DOPPLER AV Peak Velocity 155.1 cm/s AV Peak Gradient 9.6 mmHg AV Mean Velocity 119.5 cm/s AV Mean Gradient 6.2 mmHg AV Velocity Time Integral 25.9 cm LVOT Peak Velocity 133.6 cm/s LVOT Peak Gradient 7.1 mmHg LVOT Velocity Time Integral 22.6 cm LVOT Stroke Volume 74.4 cm??? LVOT Stroke Volume Index 44.2 ml/m??? LVOT Cardiac Index 4107.4 cm???/min???m??? AV Area Cont Eq vti 2.9 cm??? AV Area Cont Eq pk 2.8 cm??? Mitral E Point Velocity 64.3 cm/s Mitral A Point Velocity 62.8 cm/s Mitral E to A Ratio 1.0 MV Deceleration Time 152.5 ms LV E' Lateral Velocity 13.7 cm/s Mitral E to LV E' Lateral Ratio 4.7 LV E' Septal Velocity 11.6 cm/s Mitral E to LV E' Septal Ratio 5.6 TR Peak Velocity 282.7 cm/s TR Peak Gradient 32.0 mmHg Right Atrial Pressure 3.0 mmHg Pulmonary Artery Systolic Pressu 35.0 mmHg Right Ventricular Systolic Press 35.0 mmHg FINDINGS Left Ventricle Left ventricular wall thickness at upper limits of normal. Left ventricular cavity size normal. Normal left ventricular systolic function with no obvious regional wall motion abnormalities. Left ventricular ejection fraction is estimated at 60-65%. Right Ventricle Moderate right ventricular dilatation. Mild pulmonary hypertension. Right Atrium Mild right atrial dilatation. Left Atrium Left atrial size at the upper limits of normal. Mitral Valve Mitral valve thickened. No mitral regurgitation. Aortic Valve Trileaflet aortic valve. No aortic valve stenosis or regurgitation. Tricuspid Valve Vegetation on the tricuspid valve. Moderate tricuspid regurgitation. Pulmonic Valve Structurally normal pulmonic valve. No pulmonic regurgitation. Pericardium No pericardial effusion. Aorta Normal size aortic root and proximal ascending aorta. CONCLUSIONS Left ventricular ejection fraction is estimated at 60-65%. No obvious regional wall motion abnormalitie. Moderate TR and no other significant valvular dysfunction No pericardial effusion RVSP estimated at 35 mmHg Previewed by: Dr Miguel A Taedo (Electronically Signed) Final Date: 13 February 2023 11:53
[2023-02-13 13:00] LABS: HIV-1 RNA Not detected (Not detected); HIV-1 RNA, Quant <20 Copies/mL (<20); LOG HIV Copies/mL <1.30 (<1.30)
[2023-02-13 13:28] LABS: C-ANCA <1:20 Titer (<1:20)
[2023-02-13 13:37] VITALS: BMI 23.6
[2023-02-13 13:44] LABS: Appearance,Urine Clear (Clear); Bilirubin,Urine 1+ (Negative); Blood,Urine Large (Negative); Color,Urine Orange; Glucose,Urine (UA) Negative (Negative); Ketones,Urine Negative (Negative); Leukocyte Esterase,Urine Small (Negative); Nitrite,Urine Negative (Negative); Protein,Urine Trace (Negative)
[2023-02-13 13:46] LABS: Bacteria,Urine Occasional /hpf; Hyaline Casts,Urine 1 /lpf (0-2); Mucus,Urine Rare /hpf; RBC,Urine 10 /hpf (0-5); Squamous Epithelial Cell,Urine <1 /hpf (0-4); WBC,Urine 36 /hpf (0-5)
--- NOTE | 2023-02-13 14:14 | P.PN ---
Subjective HISTORY OF PRESENT ILLNESS: This is a 47-year-old male with a past medical history significant for nicotine dependence, and polysubstance abuse including methamphetamines and heroin. Patient states he does not always use clean needles. 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 We have been asked to see the patient in consultation for possible endocarditis. Patient examined at the bedside. Patient presented to the hospital for chief complaint of generalized weakness. The patient is apparently homeless in last used drugs 3 days ago. Patient presented to the hospital after his weakness got so bad he was having difficulty standing. He also reports having a rash all over his body. He denies chest pain or pressure. Denies SOB. Vital signs are stable. * EKG reveals sinus tachycardia with no signs of acute ischemia * Chest xray multifocal nodular hearing or masslike opacities. Unclear if these represent multifocal pneumonia or metastatic disease. * CT of the chest: Numerous predominantly cystic/necrotic masses throughout the lungs as well as more ill-defined infiltrative lesions in the lower lobes. Pleural-based left apical mass. Findings are mostly suspicious for metastatic disease. Septic emboli is less likely. * Laboratory data: WBC 16.0. Platelet count 80. Sodium 121. Potassium 3.0. Lactic acid 3.0. AST 62. ALT 52. Troponin 0.135. 0.149. * Current home cardiac medications include none * Most recent echocardiogram obtained in June 2021 revealed ejection fraction 60-65%, mild aortic regurgitation, mild tricuspid regurgitation * Cardiac catheterization history: Patient denies 02/13/2023 Patient examined this morning at the bedside. Patient states he is feeling generally unwell today. He denies chest pain or pressure. He denies shortness of breath. Blood cultures are positive for gram-positive cocci in clusters. He remains on antibiotics and infectious disease is following. Echocardiogram completed revealing ejection fraction 60-65%, moderate TR, and vegetation on the tricuspid valve. PHYSICAL EXAM: VITAL SIGNS: Reviewed. GENERAL: Well-developed in no acute distress. Generalized rash present. HEENT: Head is normocephalic. Pupils are equal, round. Sclerae anicteric. Mucous membranes of the mouth are moist. Neck supple. No JVD or thyromegaly LUNGS: Respirations even and unlabored. Lungs essentially clear to auscultation bilaterally. HEART: Regular rate and rhythm. S1 and S2 heard. 3/6 systolic murmur noted. ABDOMEN: Soft. Nondistended. Nontender. EXTREMITIES: Normal range of motion. No clubbing or cyanosis. Peripheral p ulses intact. No lower extremity edema NEUROLOGIC: Awake and alert. Oriented x 3. ASSESSMENT: Generalized weakness Generalized rash Sepsis with leukocytosis and lactic acidosis Numerous cystic/necrotic masses throughout the lungs per CT scan Vegetation on tricuspid valve concerning for infective endocarditis Bacteremia Thrombocytopenia Hyponatremia Hypokalemia Abnormal troponins Mildly elevated LFTs Nicotine dependence Polysubstance abuse including methamphetamines and IV heroin Homelessness PLAN: Infectious disease following. Continue antibiotics per ID. Await finalization of blood cultures Nothing by mouth midnight Patient to undergo RAY tomorrow with Dr. Wtat Further recommendations pending patient's course Nurse practitioner note has been reviewed by physician. Signing provider agrees with the documented findings, assessment, and plan of care. Objective - Vital Signs Vital signs: Vital Signs Temp 97.6 F 02/13/23 03:10 Pulse 94 02/13/23 03:10 Resp 18 02/13/23 03:10 BP 108/69 02/13/23 03:10 Pulse Ox 98 02/13/23 03:10 FiO2 Intake & Output 02/12/23 02/13/23 02/13/23 18:59 06:59 18:59 Intake Total 335.939 118.789 Balance 335.939 118.789 Weight 58.967 kg 68.6 kg Intake: Intake, IV Titration 95.939 118.789 Amount Heparin Sod,Pork in 0.45% 95.939 118.789 NaCl 25,000 unit In 0.45 % NaCl 1 250ml.bag @ 12 UNITS/KG/HR 7.076 mls/hr IV .Q24H [facility] Rx#: [id number] Oral 240 Other: Voiding Method Diaper Urinal Diaper - Labs CBC & Chem 7: 02/13/23 08:56 02/13/23 08:56 Labs: Abnormal Lab Results - Last 24 Hours (Table) 02/12/23 02/12/23 02/12/23 Range/Units 07:45 07:45 07:45 Plt Count (150-450) k/uL Lymphocytes # (Manual) (1.0-4.8) k/uL ESR (0-15) mm/Hr APTT (22.0-30.0) sec Sodium 123 L (137-145) mmol/L Potassium 3.4 L (3.5-5.1) mmol/L Chloride 91 L (98-107) mmol/L BUN 39 H (9-20) mg/dL Glucose 113 H (74-99) mg/dL Osmolality 268 L (280-301) mosm/kg Calcium 6.7 L (8.4-10.2) mg/dL Total Bilirubin (0.2-1.3) mg/dL Creatine Kinase (55-170) U/L Troponin I (0.000-0.034) ng/mL C-Reactive Protein (<1.0) mg/dL Total Protein (PEP) (6.2-8.2) g/dL Albumin (PEP) (3.8-4.9) g/dL Ur Random Sodium <20 L (40-220) mmol/L Ur Amphetamines Screen Detected H (NotDetected) U Methamphetamines Scrn Detected H (NotDetected) U Marijuana (THC) Screen Detected H (NotDetected) IgG (700.0-1600.0) mg/dL IgA (60.0-350.0) mg/dL Hep C IgG Ab (Non-Reactive) 02/12/23 02/12/23 02/12/23 Range/Units 07:45 07:45 07:59 Plt Count 60 L (150-450) k/uL Lymphocytes # (Manual) 0.39 L (1.0-4.8) k/uL ESR (0-15) mm/Hr APTT (22.0-30.0) sec Sodium (137-145) mmol/L Potassium (3.5-5.1) mmol/L Chloride (98-107) mmol/L BUN (9-20) mg/dL Glucose (74-99) mg/dL Osmolality (280-301) mosm/kg Calcium (8.4-10.2) mg/dL Total Bilirubin 1.8 H (0.2-1.3) mg/dL Creatine Kinase (55-170) U/L Troponin I 0.127 H* (0.000-0.034) ng/mL C-Reactive Protein (<1.0) mg/dL Total Protein (PEP) (6.2-8.2) g/dL Albumin (PEP) (3.8-4.9) g/dL Ur Random Sodium (40-220) mmol/L Ur Amphetamines Screen (NotDetected) U Methamphetamines Scrn (NotDetected) U Marijuana (THC) Screen (NotDetected) IgG (700.0-1600.0) mg/dL IgA (60.0-350.0) mg/dL Hep C IgG Ab (Non-Reactive) 02/12/23 02/12/23 02/12/23 Range/Units 09:50 09:50 09:50 Plt Count (150-450) k/uL Lymphocytes # (Manual) (1.0-4.8) k/uL ESR 49 H (0-15) mm/Hr APTT (22.0-30.0) sec Sodium (137-145) mmol/L Potassium (3.5-5.1) mmol/L Chloride (98-107) mmol/L BUN (9-20) mg/dL Glucose (74-99) mg/dL Osmolality (280-301) mosm/kg Calcium (8.4-10.2) mg/dL Total Bilirubin (0.2-1.3) mg/dL Creatine Kinase <20 L (55-170) U/L Troponin I (0.000-0.034) ng/mL C-Reactive Protein 8.9 H (<1.0) mg/dL Total Protein (PEP) (6.2-8.2) g/dL Albumin (PEP) (3.8-4.9) g/dL Ur Random Sodium (40-220) mmol/L Ur Amphetamines Screen (NotDetected) U Methamphetamines Scrn (NotDetected) U Marijuana (THC) Screen (NotDetected) IgG (700.0-1600.0) mg/dL IgA (60.0-350.0) mg/dL Hep C IgG Ab Reactive A (Non-Reactive) 02/12/23 02/12/23 02/12/23 Range/Units 14:35 14:35 14:35 Plt Count (150-450) k/uL Lymphocytes # (Manual) (1.0-4.8) k/uL ESR (0-15) mm/Hr APTT 34.0 H (22.0-30.0) sec Sodium 127 L (137-145) mmol/L Potassium 3.4 L (3.5-5.1) mmol/L Chloride 95 L (98-107) mmol/L BUN 36 H (9-20) mg/dL Glucose 130 H (74-99) mg/dL Osmolality (280-301) mosm/kg Calcium 6.8 L (8.4-10.2) mg/dL Total Bilirubin (0.2-1.3) mg/dL Creatine Kinase (55-170) U/L Troponin I (0.000-0.034) ng/mL C-Reactive Protein (<1.0) mg/dL Total Protein (PEP) 5.5 L (6.2-8.2) g/dL Albumin (PEP) 1.8 L (3.8-4.9) g/dL Ur Random Sodium (40-220) mmol/L Ur Amphetamines Screen (NotDetected) U Methamphetamines Scrn (NotDetected) U Marijuana (THC) Screen (NotDetected) IgG 1908.0 H (700.0-1600.0) mg/dL IgA 699.0 H (60.0-350.0) mg/dL Hep C IgG Ab (Non-Reactive) Microbiology - Last 24 Hours (Table) 02/11/23 23:48 Blood Culture Gram Stain - Preliminary Blood 02/11/23 23:30 Blood Culture Gram Stain - Preliminary Blood
[2023-02-13 15:45] LABS: DNA Double-Stranded Negative (Negative); HIV 2 AB Non-Reactive (Non-Reactive); HIV AB P24 Non-Reactive (Non-Reactive); HIV P24 AG Non-Reactive (Non-Reactive)
--- NOTE | 2023-02-13 15:50 | P.PN ---
Subjective Progress Note Date: 02/13/23 Principal diagnosis: Reason for follow-up is MSSA bacteremia and tricuspid valve vegetation Patient is a 47-year-old male with a past medical history significant for hepatitis C history of IV drug use and current smoker patient presenting to the ER last night for evaluation of generalized body itchy rash and weakness patient was noticed to have significant memory on the chest x-ray and a CT suspicious for septic emboli and possible endocarditis On today's evaluation that is 02/13/2023, the patient denies having any fever or any chills patient mentioned feeling slightly better today he is breathing comfortably on room air denies any chest pain or cough,, no nausea no vomiting and no diarrhea Patient is a white count of 6.7, creatinine 0.70 blood culture positive for MSSA, echocardiogram didn't show vegetation on the tricuspid valve with moderate tricuspid regurgitation Objective - Vital Signs Vital signs: Vital Signs Temp 98.0 F 02/13/23 12:00 Pulse 102 H 02/13/23 12:00 Resp 18 02/13/23 12:00 BP 138/76 02/13/23 12:00 Pulse Ox 100 02/13/23 12:00 FiO2 Intake & Output 02/12/23 02/13/23 02/13/23 18:59 06:59 18:59 Intake Total 335.939 118.789 225 Output Total 400 Balance 335.939 -281.211 225 Weight 58.967 kg 68.6 kg Intake: Intake, IV Titration 95.939 118.789 Amount Heparin Sod,Pork in 0.45% 95.939 118.789 NaCl 25,000 unit In 0.45 % NaCl 1 250ml.bag @ 12 UNITS/KG/HR 7.076 mls/hr IV .Q24H [facility] Rx#: [id number] Oral 240 225 Output: Urine 400 Other: Voiding Method Diaper Urinal Urinal Diaper Diaper - Exam GENERAL DESCRIPTION: A middle-aged male lying in bed in no distress RESPIRATORY SYSTEM: Unlabored breathing , decreased breath sound at the base HEART: S1 S2 regular rate and rhythm , ABDOMEN: Soft , no tenderness EXTREMITIES: No edema feet - Labs CBC & Chem 7: 02/13/23 08:56 02/13/23 08:56 Labs: Abnormal Lab Results - Last 24 Hours (Table) 02/12/23 02/12/2323 Range/Units 07:45 09:50 09:50 RBC (4.30-5.90) m/uL Hgb (13.0-17.5) gm/dL Hct (39.0-53.0) % Plt Count (150-450) k/uL ESR 49 H (0-15) mm/Hr PT (10.0-12.5) sec INR (<1.2) APTT (22.0-30.0) sec Sodium (137-145) mmol/L Potassium (3.5-5.1) mmol/L Chloride (98-107) mmol/L BUN (9-20) mg/dL Glucose (74-99) mg/dL Calcium (8.4-10.2) mg/dL Total Protein (PEP) (6.2-8.2) g/dL Albumin (PEP) (3.8-4.9) g/dL Ur Random Sodium <20 L (40-220) mmol/L IgG (700.0-1600.0) mg/dL IgA (60.0-350.0) mg/dL Hep C IgG Ab Reactive A (Non-Reactive) 02/12/23 02/12/23 02/12/23 Range/Units 14:35 14:35 14:35 RBC (4.30-5.90) m/uL Hgb (13.0-17.5) gm/dL Hct (39.0-53.0) % Plt Count (150-450) k/uL ESR (0-15) mm/Hr PT (10.0-12.5) sec INR (<1.2) APTT 34.0 H (22.0-30.0) sec Sodium 127 L (137-145) mmol/L Potassium 3.4 L (3.5-5.1) mmol/L Chloride 95 L (98-107) mmol/L BUN 36 H (9-20) mg/dL Glucose 130 H (74-99) mg/dL Calcium 6.8 L (8.4-10.2) mg/dL Total Protein (PEP) 5.5 L (6.2-8.2) g/dL Albumin (PEP) 1.8 L (3.8-4.9) g/dL Ur Random Sodium (40-220) mmol/L IgG 1908.0 H (700.0-1600.0) mg/dL IgA 699.0 H (60.0-350.0) mg/dL Hep C IgG Ab (Non-Reactive) 02/13/23 02/13/23 02/13/23 Range/Units 08:56 08:56 08:56 RBC 3.11 L (4.30-5.90) m/uL Hgb 9.3 L (13.0-17.5) gm/dL Hct 28.1 L (39.0-53.0) % Plt Count 90 L (150-450) k/uL ESR (0-15) mm/Hr PT 13.3 H (10.0-12.5) sec INR 1.3 H (<1.2) APTT (22.0-30.0) sec Sodium 131 L (137-145) mmol/L Potassium (3.5-5.1) mmol/L Chloride (98-107) mmol/L BUN 37 H (9-20) mg/dL Glucose 107 H (74-99) mg/dL Calcium 6.7 L (8.4-10.2) mg/dL Total Protein (PEP) (6.2-8.2) g/dL Albumin (PEP) (3.8-4.9) g/dL Ur Random Sodium (40-220) mmol/L IgG (700.0-1600.0) mg/dL IgA (60.0-350.0) mg/dL Hep C IgG Ab (Non-Reactive) 02/13/23 Range/Units 08:56 RBC (4.30-5.90) m/uL Hgb (13.0-17.5) gm/dL Hct (39.0-53.0) % Plt Count (150-450) k/uL ESR (0-15) mm/Hr PT (10.0-12.5) sec INR (<1.2) APTT 32.4 H (22.0-30.0) sec Sodium (137-145) mmol/L Potassium (3.5-5.1) mmol/L Chloride (98-107) mmol/L BUN (9-20) mg/dL Glucose (74-99) mg/dL Calcium (8.4-10.2) mg/dL Total Protein (PEP) (6.2-8.2) g/dL Albumin (PEP) (3.8-4.9) g/dL Ur Random Sodium (40-220) mmol/L IgG (700.0-1600.0) mg/dL IgA (60.0-350.0) mg/dL Hep C IgG Ab (Non-Reactive) Microbiology - Last 24 Hours (Table) 02/11/23 23:48 Blood Culture Gram Stain - Preliminary Blood 02/11/23 23:30 Blood Culture Gram Stain - Preliminary Blood Assessment and Plan (1) MSSA bacteremia Current Visit: Yes Status: Acute Code(s): R78.81 - BACTEREMIA; B95.61 - METHICILLIN SUSCEP STAPH INFCT CAUSING DIS CLASSD [id number] SNOMED Code(s): 097065105 (2) Infective endocarditis of tricuspid valve Current Visit: Yes Status: Acute Code(s): I33.0 - ACUTE AND SUBACUTE INFECTIVE ENDOCARDITIS SNOMED Code(s): 667702102 (3) Sepsis Current Visit: Yes Status: Acute Code(s): A41.9 - SEPSIS, UNSPECIFIED OR GANISM SNOMED Code(s): 84271847 Plan: 1patient was in the hospital with multiple symptoms especially with weakness patient was noted to have significant amount timidity on the chest x-ray and a CT of the chest highly suspicious for septic emboli at this patient did have history of IV drug use with the last drink was about 3 days before presentation to the hospital, concerning for septic emboli and endocarditis likely from Staph aureus 2-patient also have petechiae especially to the lower extremity could be related to his thrombocytopenia other infectious etiology not excluded and serology has been requested by admitting physician results will be followed 3-blood culture with MSSA and echocardiogram suspicious for tricuspid valve end ocarditis 4We will discontinue vancomycin and cefepime start the patient on Naficillin and will benefit from RAY to determine the extent of his infection and need for any surgery Dictation was produced using [employer] dictation software. please excuse any grammatical, word or spelling errors. Time with Patient: Greater than 30
--- NOTE | 2023-02-13 16:23 | P.PN ---
Subjective Progress Note Date: 02/13/23 (delayed charing seen at approx 1100) Patient is a 47-year-old male with ongoing IV drug use who is experiencing homelessness and is dependent on nicotine products who presented to the emergency room for generalized body aches and rash. On arrival to the ER he was tachycardic with a pulse of 112. Initial labs performed in the emergency department were remarkable for white blood cell count of 60, platelets of 80, sodium 121, potassium 3, chloride 81, BUN 47, lactic acid 3, bilirubin 1.8, AST 65, ALT 52. Initial influenza A/B/RSV/COVID-19 testing was negative. Patient had troponins drawn several hours later which were positive at 0.135. He underwent a CT chest which showed numerous predominant cystic/necrotic masses throughout the lungs with a pleural-based left apical mass findings are suspic ious for metastatic disease, septic emboli less likely. Initial EKG showed some J-point depression with sinus tachycardia at a rate of 112. In the ER he was given 2 L of normal saline and started on normal saline at 130 cc/h. He was also given a dose of cefepime. Arrangements were made for admission. Troponin was slightly elevated and the patient was therefore started on heparin drip. He was continued on vancomycin and cefepime. Cardiology, infectious disease, and nephrology were consulted.Patient's blood cultures did come back positive for Staph aureus. He also tested positive for hepatitis C. Transthoracic echo showed possible tricuspid valve vegetations. Patietns antibiotics were transitioned to naficillin. Patient seen and examined at bedside. He continues to have pain in his hips and legs bilateral. He denies any nausea, vomiting, or diarrhea. He has some shortness of breath but it is better than yesterday. Vital signs reviewed General: Ill appearing, no distress, appears at stated age Cardiovascular: S1S2 tachy, no murmur, positive posterior tibial pulse bilateral, Lungs: Course bs bilateral, no rhonchi, no rales, no accessory muscle use Derm: Petechial rash with convalescence covering trunk and bilateral thighs and arms with sparing of the palms and soles. 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 Start nafcillin. Will benefit from RAY. -Cardiology note reviewed n.p.o. after midnight with possible RAY in AM. -Naficillin 2 g IV every 4 hours -Repeat blood cultures in a.m. Dermatitis, appears vasulitic - check BING, DS DNA, C-anca, P-anca, HIV, Hep profile, complement levels Hepatitis C - check Hep C RNA quant Hyponatremia, hypovolemia -Nephrology note reviewed: Continue gentle hydration, liberalize fluid restriction to 1500 mL per patient request, check cryoglobulin levels, consider skin biopsy, possible kidney biopsy for definitive diagnosis pending above results. -Case also discussed with detention worker. There is concerns for a Leukclastic vasculitis related to hepatitis C as well as possible mixed cryoglobulinemia related to hepatitis C. Cryoglobulin levels ordered. - urine sodium less than 20 - await urine osmolality and sodium Nicotine dependency - nicotine replacement Transaminitis, resolved Hypokalemia, resolved Imaging: Echocardiogram: Left ventricular ejection fraction 60 to 65%, no obvious wall motion abnormalities, moderate TR with vegetation on the tricuspid valve and concerns for endocarditis. Liver ultrasound: Hepatomegaly with mild fatty infiltration and prominence of the pancreatic duct. Data Review: Labs reviewed from today included CBC, coags, basic metabolic profile remarkable for platelet count 90, sodium 131, BNP 2680, TSH 2.89, INR 1.3, PT 13.3 Urine drug screen positive for methamphetamines and marijuana. IgG level elevated at 1908, rheumatoid factor negative, BING negative, ANCA is negative, double-stranded DNA negative, syphilis negative, HIV negative, Legionella urine antigen negative DVT prophylaxis: Heparin gtt Anticipated discharge date: pending clinical course Anticipated discharge place: pending clinical course This dictation was prepared using [employer] voice recognition software. Though every attempt is made to correct errors during dictation some may still exist. Objective - Vital Signs Vital signs: Vital Signs Temp 98.0 F 02/13/23 12:00 Pulse 102 H 02/13/23 14:00 Resp 18 02/13/23 14:00 BP 138/76 02/13/23 12:00 Pulse Ox 100 02/13/23 12:00 FiO2 Intake & Output 02/12/23 02/13/23 02/13/23 18:59 06:59 18:59 Intake Total 335.939 118.789 885 Output Total 400 450 Balance 335.939 -281.211 435 Weight 58.967 kg 68.6 kg 68.6 kg Intake: Intake, IV Titration 95.939 118.789 Amount Heparin Sod,Pork in 0.45% 95.939 118.789 NaCl 25,000 unit In 0.45 % NaCl 1 250ml.bag @ 12 UNITS/KG/HR 7.076 mls/hr IV .Q24H [facility] Rx#: [id number] Oral 240 885 Output: Urine 400 450 Other: Voiding Method Diaper Urinal Urinal Diaper Diaper - Labs CBC & Chem 7: 02/13/23 08:56 02/13/23 08:56 Labs: Abnormal Lab Results - Last 24 Hours (Table) 02/12/23 02/12/23 02/12/23 Range/Units 07:45 09:50 09:50 RBC (4.30-5.90) m/uL Hgb (13.0-17.5) gm/dL Hct (39.0-53.0) % Plt Count (150-450) k/uL ESR 49 H (0-15) mm/Hr PT (10.0-12.5) sec INR (<1.2) APTT (22.0-30.0) sec Sodium (137-145) mmol/L Potassium (3.5-5.1) mmol/L Chloride (98-107) mmol/L BUN (9-20) mg/dL Glucose (74-99) mg/dL Calcium (8.4-10.2) mg/dL Total Protein (PEP) (6.2-8.2) g/dL Albumin (PEP) (3.8-4.9) g/dL Urine Protein (Negative) Urine Blood (Negative) Urine Bilirubin (Negative) Ur Leukocyte Esterase (Negative) Urine RBC (0-5) /hpf Urine WBC (0-5) /hpf Urine Bacteria (None) /hpf Urine Mucus (None) /hpf Ur Random Sodium <20 L (40-220) mmol/L IgG (700.0-1600.0) mg/dL IgA (60.0-350.0) mg/dL Hep C IgG Ab Reactive A (Non-Reactive) 02/12/23 02/12/23 02/13/23 Range/Units 14:35 14:35 08:56 RBC (4.30-5.90) m/uL Hgb (13.0-17.5) gm/dL Hct (39.0-53.0) % Plt Count (150-450) k/uL ESR (0-15) mm/Hr PT (10.0-12.5) sec INR (<1.2) APTT (22.0-30.0) sec Sodium 127 L 131 L (137-145) mmol/L Potassium 3.4 L (3.5-5.1) mmol/L Chloride 95 L (98-107) mmol/L BUN 36 H 37 H (9-20) mg/dL Glucose 130 H 107 H (74-99) mg/dL Calcium 6.8 L 6.7 L (8.4-10.2) mg/dL Total Protein (PEP) 5.5 L (6.2-8.2) g/dL Albumin (PEP) 1.8 L (3.8-4.9) g/dL Urine Protein (Negative) Urine Blood (Negative) Urine Bilirubin (Negative) Ur Leukocyte Esterase (Negative) Urine RBC (0-5) /hpf Urine WBC (0-5) /hpf Urine Bacteria (None) /hpf Urine Mucus (None) /hpf Ur Random Sodium (40-220) mmol/L IgG 1908.0 H (700.0-1600.0) mg/dL IgA 699.0 H (60.0-350.0) mg/dL Hep C IgG Ab (Non-Reactive) 02/13/23 02/13/23 02/13/23 Range/Units 08:56 08:56 08:56 RBC 3.11 L (4.30-5.90) m/uL Hgb 9.3 L (13.0-17.5) gm/dL Hct 28.1 L (39.0-53.0) % Plt Count 90 L (150-450) k/uL ESR (0-15) mm/Hr PT 13.3 H (10.0-12.5) sec INR 1.3 H (<1.2) APTT 32.4 H (22.0-30.0) sec Sodium (137-145) mmol/L Potassium (3.5-5.1) mmol/L Chloride (98-107) mmol/L BUN (9-20) mg/dL Glucose (74-99) mg/dL Calcium (8.4-10.2) mg/dL Total Protein (PEP) (6.2-8.2) g/dL Albumin (PEP) (3.8-4.9) g/dL Urine Protein (Negative) Urine Blood (Negative) Urine Bilirubin (Negative) Ur Leukocyte Esterase (Negative) Urine RBC (0-5) /hpf Urine WBC (0-5) /hpf Urine Bacteria (None) /hpf Urine Mucus (None) /hpf Ur Random Sodium (40-220) mmol/L IgG (700.0-1600.0) mg/dL IgA (60.0-350.0) mg/dL Hep C IgG Ab (Non-Reactive) 02/13/23 Range/Units 12:30 RBC (4.30-5.90) m/uL Hgb (13.0-17.5) gm/dL Hct (39.0-53.0) % Plt Count (150-450) k/uL ESR (0-15) mm/Hr PT (10.0-12.5) sec INR (<1.2) APTT (22.0-30.0) sec Sodium (137-145) mmol/L Potassium (3.5-5.1) mmol/L Chloride (98-107) mmol/L BUN (9-20) mg/dL Glucose (74-99) mg/dL Calcium (8.4-10.2) mg/dL Total Protein (PEP) (6.2-8.2) g/dL Albumin (PEP) (3.8-4.9) g/dL Urine Protein Trace H (Negative) Urine Blood Large H (Negative) Urine Bilirubin 1+ H (Negative) Ur Leukocyte Esterase Small H (Negative) Urine RBC 10 H (0-5) /hpf Urine WBC 36 H (0-5) /hpf Urine Bacteria Occasional H (None) /hpf Urine Mucus Rare H (None) /hpf Ur Random Sodium (40-220) mmol/L IgG (700.0-1600.0) mg/dL IgA (60.0-350.0) mg/dL Hep C IgG Ab (Non-Reactive) Microbiology - Last 24 Hours (Table) 02/11/23 23:48 Blood Culture Gram Stain - Preliminary Blood Blood Culture - Preliminary Presumptive Staph aureus 02/11/23 23:30 Blood Culture Gram Stain - Preliminary Blood Blood Culture - Preliminary Presumptive Staph aureus
[2023-02-13 16:39] LABS: Glucose,Whole Blood 118 mg/dL (70-110)
[2023-02-13] MEDS: NAFCILLIN 2 GM in DEXTROSE 5% IN WATER 100 ML IVPB SCH ×6 (17:37→23:37)
[2023-02-13 18:51] LABS: Gamma Globulin 2.06 g/dL (0.70-1.50)
[2023-02-13] MEDS: SODIUM CHLORIDE 0.9% 1,000 ML IV SCH (20:58)
[2023-02-14] MEDS: HYDROmorphone 1 MG/ML 1 ML SYRINGE IVP PRN ×7 (03:36→23:15)
[2023-02-14] MEDS: NAFCILLIN 2 GM in DEXTROSE 5% IN WATER 100 ML IVPB SCH ×12 (03:36→23:15)
[2023-02-14] MEDS: SODIUM CHLORIDE 0.9% 1,000 ML IV SCH (06:30)
[2023-02-14] MEDS: CYCLOBENZAPRINE 5 MG TAB PO PRN (08:22)
[2023-02-14] MEDS: POTASSIUM CHLORIDE ER 20 MEQ TAB.ER PO SCH (08:22)
[2023-02-14] MEDS: NICOTINE 21MG/24HR PATCH TRANSDERM SCH (08:22)
[2023-02-14] MEDS ORDERED: VANCOMYCIN TROUGH DUE 1 EACH MISC MISCELLANE ONE (09:00)
[2023-02-14 09:17] LABS: HCT 27.6 % (39.0-53.0); HGB 9.3 gm/dL (13.0-17.5); MCH 30.8 pg (25.0-35.0); MCHC 33.6 g/dL (31.0-37.0); MCV 91.5 fL (80.0-100.0); Mean Platelet Volume 9.2; Platelet Count 134 k/uL (150-450); RBC 3.01 m/uL (4.30-5.90); RDW 13.9 % (11.5-15.5)
[2023-02-14 09:45] LABS: ALT 27 U/L (4-49); AST 38 U/L (17-59); African American GFR (CKD) >90 (>60 ml/min/1.73 sqM); Alkaline Phosphatase 65 U/L (38-126); Anion Gap 8 mmol/L; Blood Urea Nitrogen 32 mg/dL (9-20); Carbon Dioxide 22 mmol/L (22-30); Chloride 100 mmol/L (98-107); Glucose 84 mg/dL (74-99); Non-African American GFR(CKD) >90 (>60 ml/min/1.73 sqM); Potassium 4.8 mmol/L (3.5-5.1); Sodium 130 mmol/L (137-145); Total Bilirubin 1.7 mg/dL (0.2-1.3); Total Protein 6.5 g/dL (6.3-8.2)
--- NOTE | 2023-02-14 10:52 | P.PN ---
Subjective Patient is seen in follow-up for hyponatremia. Sodium level stable. On IV fluids. Currently nothing by mouth for RAY today. Vital signs are stable. General: No acute distress. HEENT: Head exam is unremarkable. LUNGS: No audible rhonchi or wheezes. HEART: Rate and Rhythm are regular. ABDOMEN: Nontender. EXTREMITITES: No edema. Rash improved. Objective - Vital Signs Vital signs: Vital Signs Temp 97.7 F 02/14/23 08:00 Pulse 120 H 02/14/23 08:00 Resp 20 02/14/23 08:00 BP 121/70 02/14/23 08:00 Pulse Ox 96 02/14/23 08:00 FiO2 Intake & Output 02/13/23 02/14/23 02/14/23 18:59 06:59 18:59 Intake Total 1220 540 Output Total 800 450 Balance 420 90 Weight 68.6 kg Intake: Oral 1220 540 Output: Urine 800 450 Other: Voiding Method Urinal Urinal Urinal Diaper Diaper Diaper - Labs CBC & Chem 7: 02/14/23 07:55 02/14/23 07:55 Labs: Abnormal Lab Results - Last 24 Hours (Table) 02/12/23 02/12/23 02/12/23 Range/Units 09:50 09:50 14:35 RBC (4.30-5.90) m/uL Hgb (13.0-17.5) gm/dL Hct (39.0-53.0) % Plt Count (150-450) k/uL Sodium (137-145) mmol/L BUN (9-20) mg/dL POC Glucose (mg/dL) (70-110) mg/dL Calcium (8.4-10.2) mg/dL Total Bilirubin (0.2-1.3) mg/dL Albumin (3.5-5.0) g/dL Oxhuk-3-Wcmzfuuzo 0.52 H (0.10-0.40) g/dL Yzcno-3-Cqbgkhklj 0.57 L (0.60-1.00) g/dL Gamma Globulins 2.06 H (0.70-1.50) g/dL Aldolase 11.2 H (1.2-7.6) U/L Urine Protein (Negative) Urine Blood (Negative) Urine Bilirubin (Negative) Ur Leukocyte Esterase (Negative) Urine RBC (0-5) /hpf Urine WBC (0-5) /hpf Urine Bacteria (None) /hpf Urine Mucus (None) /hpf Tot Complement (CH50) 32 L (42 - 95) U/mL 02/13/23 02/13/23 02/14/23 Range/Units 12:30 16:32 07:55 RBC 3.01 L (4.30-5.90) m/uL Hgb 9.3 L (13.0-17.5) gm/dL Hct 27.6 L (39.0-53.0) % Plt Count 134 L (150-450) k/uL Sodium (137-145) mmol/L BUN (9-20) mg/dL POC Glucose (mg/dL) 118 H (70-110) mg/dL Calcium (8.4-10.2) mg/dL Total Bilirubin (0.2-1.3) mg/dL Albumin (3.5-5.0) g/dL Ybspv-1-Bzobogbtc (0.10-0.40) g/dL Dxwic-0-Shdesfivz (0.60-1.00) g/dL Gamma Globulins (0.70-1.50) g/dL Aldolase (1.2-7.6) U/L Urine Protein Trace H (Negative) Urine Blood Large H (Negative) Urine Bilirubin 1+ H (Negative) Ur Leukocyte Esterase Small H (Negative) Urine RBC 10 H (0-5) /hpf Urine WBC 36 H (0-5) /hpf Urine Bacteria Occasional H (None) /hpf Urine Mucus Rare H (None) /hpf Tot Complement (CH50) (42 - 95) U/mL 02/14/23 Range/Units 07:55 RBC (4.30-5.90) m/uL Hgb (13.0-17.5) gm/dL Hct (39.0-53.0) % Plt Count (150-450) k/uL Sodium 130 L (137-145) mmol/L BUN 32 H (9-20) mg/dL POC Glucose (mg/dL) (70-110) mg/dL Calcium 7.0 L (8.4-10.2) mg/dL Total Bilirubin 1.7 H (0.2-1.3) mg/dL Albumin 2.0 L (3.5-5.0) g/dL Carun-7-Ozkdvxbuo (0.10-0.40) g/dL Wvxzq-1-Envjfgbve (0.60-1.00) g/dL Gamma Globulins (0.70-1.50) g/dL Aldolase (1.2-7.6) U/L Urine Protein (Negative) Urine Blood (Negative) Urine Bilirubin (Negative) Ur Leukocyte Esterase (Negative) Urine RBC (0-5) /hpf Urine WBC (0-5) /hpf Urine Bacteria (None) /hpf Urine Mucus (None) /hpf Tot Complement (CH50) (42 - 95) U/mL Microbiology - Last 24 Hours (Table) 02/11/23 23:48 Blood Culture Gram Stain - Preliminary Blood Blood Culture - Preliminary Presumptive Staph aureus 02/11/23 23:30 Blood Culture Gram Stain - Preliminary Blood Blood Culture - Preliminary Presumptive Staph aureus Assessment and Plan Plan: Assessment: 1. Hypovolemic hyponatremia with component of poor solute intake. Urine osmolality 399. Urine sodium less than 20. TSH normal. Sodium level 130 today. 2. Hypokalemia from poor intake. Replaced. Better. 3. Petechial erythematous rash. UA with trace protein and RBCs. 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 Also can be petechiae induced from infective endocarditis. Improved. Urine eosinophils negative. 4. Polysubstance drug abuse. 5. Proteinuria and hematuria noted on UA. UPC 0.22. 6. Staph aureus bacteremia with concern for underlying tricuspid valve endocarditis. Plan: Maintain gentle IV hydration. Maintain 1500 mL fluid restriction. Encouraged oral intake. Follow-up serologies. F/u cryoglobulin levels. Stop potassium supplement. Consider skin biopsy. Discussed kidney biopsy for definitive diagnosis in near future. Discussed with primary team.
[2023-02-14] MEDS ORDERED: fentaNYL (PF) 50 MCG/ML 2 ML AMP ONE ×2 (14:27→14:48)
[2023-02-14] MEDS ORDERED: BENZOCAINE SPRAY 1 CAN TOPICAL ONE ×2 (14:35→14:40)
[2023-02-14] MEDS ORDERED: fentaNYL (PF) 50 MCG/ML 2 ML AMP IVP ONE ×3 (14:40→14:45)
[2023-02-14] MEDS ORDERED: MIDAZOLAM 2 MG/2 ML VIAL IVP ONE ×3 (14:40→14:45)
[2023-02-14] MEDS ORDERED: SODIUM CHLORIDE 0.9% 1,000 ML IV ONE ×2 (15:01→22:43)
[2023-02-14 16:05] LABS: Complement C3 79.2 mg/dL (80.0-207.0)
--- NOTE | 2023-02-14 19:20 | P.PN ---
Subjective Progress Note Date: 02/14/23 (delayed charting seen at 0930) Patient is a 47-year-old male with ongoing IV drug use who is experiencing homelessness and is dependent on nicotine products who presented to the emergency room for generalized body aches and rash. On arrival to the ER he was tachycardic with a pulse of 112. Initial labs performed in the emergency department were remarkable for white blood cell count of 60, platelets of 80, sodium 121, potassium 3, chloride 81, BUN 47, lactic acid 3, bilirubin 1.8, AST 65, ALT 52. Initial influenza A/B/RSV/COVID-19 testing was negative. Patient had troponins drawn several hours later which were positive at 0.135. He underwent a CT chest which showed numerous predominant cystic/necrotic masses throughout the lungs with a pleural-based left apical mass findings are suspicious for metastatic disease, septic emboli less likely. Initial EKG showed some J-point depression with sinus tachycardia at a rate of 112. In the ER he was given 2 L of normal saline and started on normal saline at 130 cc/h. He was also given a dose of cefepime. Arrangements were made for admission. Troponin was slightly elevated and the patient was therefore started on heparin drip. He was continued on vancomycin and cefepime. Cardiology, infectious disease, and nephrology were consulted.Patient's blood cultures did come back positive for Staph aureus. He also tested positive for hepatitis C. Transthoracic echo showed possible tricuspid valve vegetations. Patietns antibiotics were transitioned to naficillin. Patient seen and examined at bedside. He denies any opiate withdrawal type symptoms. He is continuing to have some pain in his legs. He is very frustrated about not being to eat or drink. We discussed the results of his blood cultures, transthoracic echo and wide RAY as needed. All questions answered. He denies any nausea, vomiting, or diarrhea. No chest pain or shortness of breath. Vital signs reviewed General: Ill appearing, no distress, appears at stated age Cardiovascular: S1S2 tachy, no murmur, positive posterior tibial pulse bilateral, Lungs: Course bs bilateral, no rhonchi, no rales, no accessory muscle use Derm: Petechial rash with convalescence covering trunk and bilateral thighs and arms with sparing of the palms and soles. 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 - completed 48 hours of heparin gtt, stop if cardio in agreement Dermatitis, appears vasulitic -BING, DS DNA, C-anca, P-anca, HIV- negative - complement levels pening, cryoglobulin levels pending - unable to have inpatient skin biopsy is dermatology no longer comes here but is willing to see the patient in office post discharge. Hepatitis C - Await Hep C RNA quant Hyponatremia, hypovolemia - Nephrology note reviewed: Stop potassium supplement, follow cryoglobulin levels. Maintain 1500 mL fluid restriction. Discussed possible kidney biopsy for definitive diagnosis in the near future. - urine sodium less than 20 Nicotine dependency - nicotine replacement Transaminitis, resolved Hypokalemia, resolved Imaging: Echocardiogram: Left ventricular ejection fraction 60 to 65%, no obvious wall motion abnormalities, moderate TR with vegetation on the tricuspid valve and concerns for endocarditis. Liver ultrasound: Hepatomegaly with mild fatty infiltration and prominence of the pancreatic duct. Data Review: 2 out of 2 blood cultures positive for staph aureus Labs reviewed today include CBC and basic metabolic profile which are remarkable for hemoglobin 9.3, sodium 1:30, BUN 32, calcium 7, bilirubin 1.7 DVT prophylaxis: Heparin gtt Anticipated discharge date: pending clinical course Anticipated discharge place: pending clinical course This dictation was prepared using [employer] voice recognition software. Though every attempt is made to correct errors during dictation some may still exist. Objective - Vital Signs Vital signs: Vital Signs Temp 97.6 F 02/14/23 15:20 Pulse 106 H 02/14/23 16:15 Resp 16 02/14/23 16:15 BP 130/76 02/14/23 16:15 Pulse Ox 98 02/14/23 16:15 FiO2 Intake & Output 02/14/23 02/14/23 02/15/23 06:59 18:59 06:59 Intake Total 540 50 Output Total 450 700 Balance 90 -650 Intake: IV 50 Oral 540 0 Output: Urine 450 700 Other: Voiding Method Urinal Urinal Diaper Diaper - Labs CBC & Chem 7: 02/14/23 07:55 02/14/23 07:55 Labs: Abnormal Lab Results - Last 24 Hours (Table) 02/12/23 02/12/23 02/14/23 Range/Units 09:50 09:50 07:55 RBC 3.01 L (4.30-5.90) m/uL Hgb 9.3 L (13.0-17.5) gm/dL Hct 27.6 L (39.0-53.0) % Plt Count 134 L (150-450) k/uL Sodium (137-145) mmol/L BUN (9-20) mg/dL Calcium (8.4-10.2) mg/dL Total Bilirubin (0.2-1.3) mg/dL Albumin (3.5-5.0) g/dL Aldolase 11.2 H (1.2-7.6) U/L Complement C3 (80.0-207.0) mg/dL Tot Complement (CH50) 32 L (42 - 95) U/mL 02/14/23 Range/Units 07:55 RBC (4.30-5.90) m/uL Hgb (13.0-17.5) gm/dL Hct (39.0-53.0) % Plt Count (150-450) k/uL Sodium 130 L (137-145) mmol/L BUN 32 H (9-20) mg/dL Calcium 7.0 L (8.4-10.2) mg/dL Total Bilirubin 1.7 H (0.2-1.3) mg/dL Albumin 2.0 L (3.5-5.0) g/dL Aldolase (1.2-7.6) U/L Complement C3 79.2 L (80.0-207.0) mg/dL Tot Complement (CH50) (42 - 95) U/mL Microbiology - Last 24 Hours (Table) 02/11/23 23:48 Blood Culture Gram Stain - Final Blood Blood Culture - Final Staphylococcus aureus 02/11/23 23:30 Blood Culture Gram Stain - Final Blood Blood Culture - Final Staphylococcus aureus
--- NOTE | 2023-02-14 21:17 | P.TEE ---
Description of Procedure(s): Procedure performed: Transesophageal Echocardiogram with color flow doppler, pulsed wave doppler and continuous wave doppler, moderate conscious sedation Moderate conscious sedation: Moderate conscious sedation was supplied with direct supervision of myself using Versed and Fentanyl. Complications: none Indications: Bacteremia, vegetation on tricuspid valve PROCEDURE: After the risks, benefits and alternatives of the above mentioned procedure was explained in detail with the patient, informed consent was obtained. Patient was brought to the lab in a fasting state. Patient was given IV Versed and Fentanyl for sedation. The throat was sprayed with Hurricane to anesthetize the throat. A lubricated Omni probe was then introduced into the esophagus and stomach and multiple views were obtained. 2D echo with color flow doppler, pulsed wave doppler and continuous wave doppler was utilized. Agitated saline bubbles were injected to assess for any intra-atrial shunt. The probe was then removed. Patient tolerated the procedure well. Patient was transferred to the post procedure area in stable and satisfactory condition. FINDINGS: 1. The aortic valve is tricuspid with normal function with no significant aortic regurgitation. 2. The mitral valve appears be normal with trace mitral regurgitation. 3. Tricuspid valve has a large 3.0 x 1.1 cm echodensity most consistent with vegetation with severe tricuspid regurgitation 4. The interatrial septum is intact. No evidence of PFO. 5. Left atrial appendage is free of clot. 6. Left ventricular ejection fraction 60%
[2023-02-14] MEDS: METOPROLOL TARTRATE 25 MG TAB PO SCH (23:20)
[2023-02-15] MEDS: SODIUM CHLORIDE 0.9% 1,000 ML IV SCH ×2 (00:09→06:18)
[2023-02-15] MEDS: HYDROmorphone 1 MG/ML 1 ML SYRINGE IVP PRN ×6 (02:45→23:52)
[2023-02-15] MEDS: NAFCILLIN 2 GM in DEXTROSE 5% IN WATER 100 ML IVPB SCH ×12 (03:26→23:52)
[2023-02-15 08:49] LABS: HCT 35.7 % (39.0-53.0); HGB 11.5 gm/dL (13.0-17.5); Hypochromasia Moderate; MCH 30.2 pg (25.0-35.0); MCHC 32.1 g/dL (31.0-37.0); Mean Platelet Volume 9.1; Platelet Count 169 k/uL (150-450); RDW 13.8 % (11.5-15.5); WBC 8.8 k/uL (3.8-10.6)
[2023-02-15 09:02] LABS: ALT 27 U/L (4-49); African American GFR (CKD) 80 (>60 ml/min/1.73 sqM); Albumin 2.4 g/dL (3.5-5.0); Anion Gap 9 mmol/L; Blood Urea Nitrogen 34 mg/dL (9-20); Calcium 7.2 mg/dL (8.4-10.2); Carbon Dioxide 18 mmol/L (22-30); Chloride 104 mmol/L (98-107); Glucose 118 mg/dL (74-99); Non-African American GFR(CKD) 69 (>60 ml/min/1.73 sqM); Sodium 131 mmol/L (137-145); Total Bilirubin 1.9 mg/dL (0.2-1.3); Total Protein 7.7 g/dL (6.3-8.2)
[2023-02-15] MEDS: NICOTINE 21MG/24HR PATCH TRANSDERM SCH (09:29)
[2023-02-15] MEDS: METOPROLOL TARTRATE 25 MG TAB PO SCH ×2 (09:35→20:26)
[2023-02-15 09:37] LABS: AST 54 U/L (17-59); Alkaline Phosphatase 65 U/L (38-126); Potassium 5.4 mmol/L (3.5-5.1)
--- NOTE | 2023-02-15 11:10 | P.PN ---
Subjective Patient is seen in follow-up for hyponatremia. Sodium level slightly better. Oral intake fair. No vomiting or diarrhea. Vital signs are stable. General: No acute distress. HEENT: Head exam is unremarkable. LUNGS: No audible rhonchi or wheezes. HEART: Rate and Rhythm are regular. ABDOMEN: Nontender. EXTREMITITES: No edema. Rash improved. Objective - Vital Signs Vital signs: Vital Signs Temp 97.8 F 02/15/23 09:26 Pulse 116 H 02/15/23 09:26 Resp 20 02/15/23 09:26 BP 112/64 02/15/23 09:26 Pulse Ox 95 02/15/23 09:26 FiO2 Intake & Output 02/14/23 02/15/23 02/15/23 18:59 06:59 18:59 Intake Total 50 240 250 Output Total 700 850 325 Balance -650 -610 -75 Intake: IV 50 10 Invasive Line 2 10 Oral 0 240 240 Output: Urine 700 850 325 Other: Voiding Method Urinal Urinal Urinal Diaper Diaper Diaper - Labs CBC & Chem 7: 02/15/23 07:46 02/15/23 07:46 Labs: Abnormal Lab Results - Last 24 Hours (Table) 02/14/23 02/15/23 02/15/23 Range/Units 07:55 07:46 07:46 RBC 3.80 L (4.30-5.90) m/uL Hgb 11.5 L (13.0-17.5) gm/dL Hct 35.7 L (39.0-53.0) % Sodium 131 L (137-145) mmol/L Potassium 5.4 H (3.5-5.1) mmol/L Carbon Dioxide 18 L (22-30) mmol/L BUN 34 H (9-20) mg/dL Glucose 118 H (74-99) mg/dL Calcium 7.2 L (8.4-10.2) mg/dL Total Bilirubin 1.9 H (0.2-1.3) mg/dL Albumin 2.4 L (3.5-5.0) g/dL Complement C3 79.2 L (80.0-207.0) mg/dL Microbiology - Last 24 Hours (Table) 02/11/23 23:48 Blood Culture Gram Stain - Final Blood Blood Culture - Final Staphylococcus aureus 02/11/23 23:30 Blood Culture Gram Stain - Final Blood Blood Culture - Final Staphylococcus aureus Assessment and Plan Plan: Assessment: 1. Hypovolemic hyponatremia with component of poor solute intake. Urine osmolality 399. Urine sodium less than 20. TSH normal. Sodium level 131 today. 2. Hypokalemia from poor intake. Replaced. Better. Potassium today was 5.4 but was hemolyzed. 3. Petechial erythematous rash. UA with trace protein and RBCs. 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 Also can be petechiae induced from infective endocarditis. Improved. Urine eosinophils negative. C3 mildly low and C4 normal - would expect to see low C4 in hep C induced GN. ANCA titers negative. BING negative. Serum immunofixation positive for IgG Paraprotein. Hep C can be a risk factor for monoclonal gammopathy. 4. Polysubstance drug abuse. 5. Proteinuria and hematuria noted on UA. UPC 0.22. 6. Staph aureus bacteremia with concern for underlying tricuspid valve endocarditis. RAY done 02/14/2023 showed severe tricuspid regurgitation with large vegetation. Plan: Maintain 1500 mL fluid restriction. Encouraged oral intake. F/u cryoglobulin levels. Consider skin biopsy. Dermatology consulted. Discussed kidney biopsy for definitive diagnosis in near future. Consults hematology oncology for further workup for monoclonal gammopathy.
[2023-02-15] MEDS ORDERED: KETOROLAC 15 MG/ML 1 ML VIAL IVP STA (11:12)
[2023-02-15 12:19] LABS: African American GFR (CKD) 71 (>60 ml/min/1.73 sqM); Anion Gap 11 mmol/L; Blood Urea Nitrogen 34 mg/dL (9-20); Calcium 7.2 mg/dL (8.4-10.2); Carbon Dioxide 18 mmol/L (22-30); Chloride 100 mmol/L (98-107); Glucose 213 mg/dL (74-99); Non-African American GFR(CKD) 61 (>60 ml/min/1.73 sqM); Sodium 129 mmol/L (137-145)
--- NOTE | 2023-02-15 12:36 | XR ---
EXAMINATION TYPE: XR chest 1V portable DATE OF EXAM: 02/15/2023 12:23 PM CLINICAL INDICATION:Male, 47 years old with history of pain; [facility] COMPARISON: Chest radiographs from 02/11/2023 TECHNIQUE: XR chest 1V portable Frontal view of the chest. FINDINGS: Lungs/Pleura: Similar multifocal airspace opacities. No evidence of pneumothorax or pleural effusion. Pulmonary vascularity: Unremarkable. Heart/mediastinum: Cardiomediastinal silhouette is unremarkable. Musculoskeletal: No acute osseous pathology. Other findings: None Lines/Tubes: IMPRESSION: Similar multifocal airspace opacities within the left midlung. Masslike appearance.
--- NOTE | 2023-02-15 12:37 | P.GSCN ---
History of Present Illness Consult date: 02/15/23 Reason for Consult: Tricuspid valve endocarditis Requesting physician: Rupesh Watt History of present illness: This is a 47-year-old gentleman who does not follow with the primary care physician on an outpatient basis and in fact is listed as homeless. He has a previous medical history of tobacco dependence and polydrug use including IV heroin. He presented to [facility] emergency room with complaints of generalized weakness as well as full body rash and chills. In the emergency room his laboratory studies revealed white blood cell count of 16 with thrombocytopenia at 80,000, lactic acid was elevated at 3, liver enzymes were slightly elevated, initial troponin was mildly elevated at 0.135. He was a bit tachycardic and hypotensive at the time and was given IV fluid bolus. He also was noted to have a systolic murmur present. He was admitted for evaluation and treatment in placed on IV antibiotics, consultation was placed to cardiology. CT of the chest demonstrated numerous predominantly cystic/necrotic masses throughout the lungs as well as more ill-defined infiltrative lesions in the lower lobes, pleural-based left apical mass. Blood cultures were drawn which were positive for staph. This patient had a transthoracic echocardiogram completed demonstrating normal left ventricular systolic function with EF 60- 65%, and moderate tricuspid regurgitation with vegetation seen on the tricuspid valve. For further evaluation a transesophageal echocardiogram was completed last night per Dr. Watt which demonstrated tricuspid valve with large 3.0 x 1.17 m echodensity consistent with vegetation with severe tricuspid regurgitation, no significant aortic or mitral valve pathology, and normal left ventricular systolic function with EF 60%. Due to this finding consultation was placed to Dr. Aden from cardiothoracic surgery for surgical recommendations. Review of Systems Review of systems was completed and was negative except as noted - Constitutional Reports chills, Reports fatigue, Reports fever, Reports weakness Past Medical History Past Medical History: No Reported History Additional Past Medical History / Comment(s): hep c History of Any Multi-Drug Resistant Organisms: None Reported Past Surgical History: No Surgical Hx Reported Past Anesthesia/Blood Transfusion Reactions: No Reported Reaction Past Psychological History: No Psychological Hx Reported Smoking Status: Current every day smoker, Vaper Past Alcohol Use History: None Reported, Occasional Past Drug Use History: Heroin, IV Drug Use, Marijuana, Methamphetamine, Opiates Medications and Allergies Home Medications Medication Instructions Recorded Confirmed Type No Known Home Medications 02/21/17 02/12/23 History Allergies Allergy/AdvReac Type Severity Reaction Status Date / Time No Known Allergies Allergy Verified 02/12/23 06:33 Surgical - Exam Vital Signs Temp Pulse Resp BP Pulse Ox 98 F 112 H 20 101/59 94 L 02/11/23 20:08 02/11/23 20:08 02/11/23 20:08 02/11/23 20:08 02/11/23 20:08 CONSTITUTIONAL: Awake and alert, appears comfortable, cooperative, no pain, no acute distress although is ill appearing EYES: Pupils equal, round, reactive to light, normal ocular movement ENT: Moist mucous membranes without oral lesions present NECK: No masses, no bruits, trachea midline RESPIRATORY: Lungs sounds diminished with coarse breath sounds bilaterally. Respirations even, nonlabored. Currently on room air with oxygen saturation 97%. Strong cough. No chest wall deformities. No clubbing or cyanosis present CARDIOVASCULAR: S1, S2 present, systolic murmur present. Tachycardic but regular rate and rhythm, sinus tach on telemetry. Palpable peripheral pulses bilaterally. No edema present. No calf pain or tenderness noted GASTROINTESTINAL: Abdomen soft, nontender, nondistended without masses or organomegaly noted. There is no rebound or guarding present. Active bowel sounds present 4 quadrants. GENITOURINARY: Deferred INTEGUMENTARY: Skin is warm and dry, petechial rash present NEUROLOGIC: Cranial nerves II through XII intact, normal coordination, no obvious motor or sensory deficits, speech is normal MUSKULOSKELETAL: Able to move all extremities, strength equal bilaterally, normal posture PSYCHIATRIC: Alert and oriented to person place and time Results - Labs 02/15/23 07:46 02/15/23 07:46 Abnormal Lab Results - Last 24 Hours (Table) 02/14/23 02/15/23 02/15/23 Range/Units 07:55 07:46 07:46 RBC 3.80 L (4.30-5.90) m/uL Hgb 11.5 L (13.0-17.5) gm/dL Hct 35.7 L (39.0-53.0) % Sodium 131 L (137-145) mmol/L Potassium 5.4 H (3.5-5.1) mmol/L Carbon Dioxide 18 L (22-30) mmol/L BUN 34 H (9-20) mg/dL Glucose 118 H (74-99) mg/dL Calcium 7.2 L (8.4-10.2) mg/dL Total Bilirubin 1.9 H (0.2-1.3) mg/dL Albumin 2.4 L (3.5-5.0) g/dL Complement C3 79.2 L (80.0-207.0) mg/dL Microbiology - Last 24 Hours (Table) 02/11/23 23:48 Blood Culture Gram Stain - Final Blood Blood Culture - Final Staphylococcus aureus 02/11/23 23:30 Blood Culture Gram Stain - Final Blood Blood Culture - Final Staphylococcus aureus Diabetes panel 02/15/23 Range/Units 07:46 Sodium 131 L (137-145) mmol/L Potassium 5.4 H (3.5-5.1) mmol/L Chloride 104 (98-107) mmol/L Carbon Dioxide 18 L (22-30) mmol/L BUN 34 H (9-20) mg/dL Creatinine 1.25 (0.66-1.25) mg/dL Glucose 118 H (74-99) mg/dL Calcium 7.2 L (8.4-10.2) mg/dL AST 54 (17-59) U/L ALT 27 (4-49) U/L Alkaline Phosphatase 65 (38-126) U/L Total Protein 7.7 (6.3-8.2) g/dL Albumin 2.4 L (3.5-5.0) g/dL Calcium panel 02/15/23 Range/Units 07:46 Calcium 7.2 L (8.4-10.2) mg/dL Albumin 2.4 L (3.5-5.0) g/dL Pituitary panel 02/15/23 Range/Units 07:46 Sodium 131 L (137-145) mmol/L Potassium 5.4 H (3.5-5.1) mmol/L Chloride 104 (98-107) mmol/L Carbon Dioxide 18 L (22-30) mmol/L BUN 34 H (9-20) mg/dL Creatinine 1.25 (0.66-1.25) mg/dL Glucose 118 H (74-99) mg/dL Calcium 7.2 L (8.4-10.2) mg/dL Adrenal panel 02/15/23 Range/Units 07:46 Sodium 131 L (137-145) mmol/L Potassium 5.4 H (3.5-5.1) mmol/L Chloride 104 (98-107) mmol/L Carbon Dioxide 18 L (22-30) mmol/L BUN 34 H (9-20) mg/dL Creatinine 1.25 (0.66-1.25) mg/dL Glucose 118 H (74-99) mg/dL Calcium 7.2 L (8.4-10.2) mg/dL Total Bilirubin 1.9 H (0.2-1.3) mg/dL AST 54 (17-59) U/L ALT 27 (4-49) U/L Alkaline Phosphatase 65 (38-126) U/L Total Protein 7.7 (6.3-8.2) g/dL Albumin 2.4 L (3.5-5.0) g/dL - Imaging CT scan - chest: report reviewed, image reviewed Additional studies: RAY films reviewed with Dr. Aden Assessment and Plan Assessment: Tricuspid valve endocarditis MSSA bacteremia Sepsis presentation on admission Polysubstance abuse, including IV heroin use Current tobacco dependence Plan: The patient was seen and examined at the bedside with Dr. Aden. Chart/diagnostics were reviewed. The patient has staph endocarditis of the tricuspid valve with multiple embolic lesions to the lungs, left pleural base mass present with unclear etiology. Our recommendation is for continuing antibiotics and cessation of IV drug use. May consider surgery in the future if patient can prove to remain drug free after discharge and continues/becomes symptomatic again. This was discussed in detail with the patient and he verbalized understanding, also was discussed with Dr. Watt. Continue medical management per internal medicine, infectious disease. Thank you Dr. Watt for this consult. Please call us with any further questions. I have personally seen and examined the patient, performed the documentation and the assessment and plan as written. Number of minutes spent on the visit: 30. WALTER Blue
[2023-02-15 13:00] LABS: Potassium 4.7 mmol/L (3.5-5.1)
[2023-02-15] MEDS ORDERED: NITROGLYCERIN SL TABS 0.4 MG TAB SUBLINGUAL PRN (13:12)
[2023-02-15] MEDS ORDERED: ALPRAZolam 0.5 MG TAB PO PRN (13:12)
[2023-02-15] MEDS ORDERED: ALPRAZolam 0.25 MG TAB PO PRN (13:12)
--- NOTE | 2023-02-15 14:37 | P.PN ---
Subjective HISTORY OF PRESENT ILLNESS: This is a 47-year-old male with a past medical history significant for nicotine dependence, and polysubstance abuse including methamphetamines and heroin. Patient states he does not always use clean needles. 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 We have been asked to see the patient in consultation for possible endocarditis. Patient examined at the bedside. Patient presented to the hospital for chief complaint of generalized weakness. The patient is apparently homeless in last used drugs 3 days ago. Patient presented to the hospital after his weakness got so bad he was having difficulty standing. He also reports having a rash all over his body. He denies chest pain or pressure. Denies SOB. Vital signs are stable. * EKG reveals sinus tachycardia with no signs of acute ischemia * Chest xray multifocal nodular hearing or masslike opacities. Unclear if these represent multifocal pneumonia or metastatic disease. * CT of the chest: Numerous predominantly cystic/necrotic masses throughout the lungs as well as more ill-defined infiltrative lesions in the lower lobes. Pleural-based left apical mass. Findings are mostly suspicious for metastatic disease. Septic emboli is less likely. * Laboratory data: WBC 16.0. Platelet count 80. Sodium 121. Potassium 3.0. Lactic acid 3.0. AST 62. ALT 52. Troponin 0.135. 0.149. * Current home cardiac medications include none * Most recent echocardiogram obtained in June 2021 revealed ejection fraction 60-65%, mild aortic regurgitation, mild tricuspid regurgitation * Cardiac catheterization history: Patient denies 02/13/2023 Patient examined this morning at the bedside. Patient states he is feeling generally unwell today. He denies chest pain or pressure. He denies shortness of breath. Blood cultures are positive for gram-positive cocci in clusters. He remains on antibiotics and infectious disease is following. Echocardiogram completed revealing ejection fraction 60-65%, moderate TR, and vegetation on the tricuspid valve. 02/15/2023 Patient is status post RAY revealing trace mitral regurgitation, large 3.01.1 cm echodensity consistent with vegetation with severe tricuspid regurgitation, no evidence of PFO, left atrial appendage is free of clot, ejection fraction 60%. Blood cultures are positive for staph aureus. He remains on IV antibiotics. PHYSICAL EXAM: VITAL SIGNS: Reviewed. GENERAL: Well-developed in no acute distress. Generalized rash present. HEENT: Head is normocephalic. Pupils are equal, round. Sclerae anicteric. Mucous membranes of the mouth are moist. Neck supple. No JVD or thyromegaly LUNGS: Respirations even and unlabored. Lungs essentially clear to auscultation bilaterally. HEART: Regular rate and rhythm. S1 and S2 heard. 3/6 systolic murmur noted. ABDOMEN: Soft. Nondistended. Nontender. EXTREMITIES: Normal range of motion. No clubbing or cyanosis. Peripheral pulses intact. No lower extremity edema NEUROLOGIC: Awake and alert. Oriented x 3. 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 Continue antibiotics per ID. CT surgery following for possible valve replacement Nothing by mouth at midnight Patient to undergo cardiac catheterization tomorrow with Dr. Watt Further recommendations pending patient's course Nurse practitioner note has been reviewed by physician. Signing provider agrees with the documented findings, assessment, and plan of care. Objective - Vital Signs Vital signs: Vital Signs Temp 97.9 F 02/15/23 04:00 Pulse 109 H 02/15/23 04:00 Resp 18 02/15/23 04:00 BP 134/71 02/15/23 04:00 Pulse Ox 98 02/15/23 04:00 FiO2 Intake & Output 02/14/23 02/15/23 02/15/23 18:59 06:59 18:59 Intake Total 50 240 Output Total 700 850 325 Balance -650 -610 -325 Intake: IV 50 Oral 0 240 Output: Urine 700 850 325 Other: Voiding Method Urinal Urinal Diaper Diaper - Labs CBC & Chem 7: 02/15/23 07:46 02/15/23 11:33 Labs: Abnormal Lab Results - Last 24 Hours (Table) 02/12/23 02/14/23 02/14/23 Range/Units 09:50 07:55 07:55 RBC 3.01 L (4.30-5.90) m/uL Hgb 9.3 L (13.0-17.5) gm/dL Hct 27.6 L (39.0-53.0) % Plt Count 134 L (150-450) k/uL Sodium 130 L (137-145) mmol/L BUN 32 H (9-20) mg/dL Calcium 7.0 L (8.4-10.2) mg/dL Total Bilirubin 1.7 H (0.2-1.3) mg/dL Albumin 2.0 L (3.5-5.0) g/dL Aldolase 11.2 H (1.2-7.6) U/L Complement C3 79.2 L (80.0-207.0) mg/dL Microbiology - Last 24 Hours (Table) 02/11/23 23:48 Blood Culture Gram Stain - Final Blood Blood Culture - Final Staphylococcus aureus 02/11/23 23:30 Blood Culture Gram Stain - Final Blood Blood Culture - Final Staphylococcus aureus
--- NOTE | 2023-02-15 14:38 | P.PN ---
Subjective Progress Note Date: 02/15/23 Patient is a 47-year-old male with ongoing IV drug use who is experiencing homelessness and is dependent on nicotine products who presented to the emergency room for generalized body aches and rash. On arrival to the ER he was tachycardic with a pulse of 112. Initial labs performed in the emergency department were remarkable for white blood cell count of 60, platelets of 80, sodium 121, potassium 3, chloride 81, BUN 47, lactic acid 3, bilirubin 1.8, AST 65, ALT 52. Initial influenza A/B/RSV/COVID-19 testing was negative. Patient had troponins drawn several hours later which were positive at 0.135. He underwent a CT chest which showed numerous predominant cystic/necrotic masses throughout the lungs with a pleural-based left apical mass findings are suspicious for metastatic disease, septic emboli less likely. Initial EKG showed some J-point depression with sinus tachycardia at a rate of 112. In the ER he was given 2 L of normal saline and started on normal saline at 130 cc/h. He was also given a dose of cefepime. Arrangements were made for admission. Troponin was slightly elevated and the patient was therefore started on heparin drip. He was continued on vancomycin and cefepime. Cardiology, infectious disease, and nephrology were consulted.Patient's blood cultures did come back positive for Staph aureus. He also tested positive for hepatitis C. Transthor acic echo showed possible tricuspid valve vegetations. Patietns antibiotics were transitioned to naficillin. Patient seen and examined at bedside. Significant pain on full sides of the chest, pleuritic in nature, also has bilateral thigh pain. Denies any urinary or bowel complaints. Vital signs reviewed General: Ill appearing, no distress, appears at stated age Cardiovascular: S1S2 tachy, no murmur, positive posterior tibial pulse bilateral, Lungs: Course bs bilateral, no rhonchi, no rales, no accessory muscle use Derm: Petechial rash with convalescence covering trunk and bilateral thighs and arms with sparing of the palms and soles. Abdominal: Soft, nontender to palpation, no guarding, no appreciable organomegaly Ext: No gross muscle atrophy, no edema b/l lower extremities, no contractures Neuro: CN II-XI grossly intact, no focal neuro deficits Psych: Alert, oriented, appropriate affect Assessment/Plan: Septic pulmonary emboli with tricuspid valve endocarditis Staph aureus bacteremia IVDA Type II NSTEMI due to demand ischemia -ID following -Naficillin 2 g IV every 4 hours D# 3 -Cardiac Thoracic surgery, continue antibiotics, no interventions at the moment -Repeat blood cultures in a.m. - completed 48 hours of heparin gtt -Cardiology also following -Pain control with IV Dilaudid 0.5 every 3 hours as needed, and 1 mg IV every 3 hours as needed Dermatitis, appears vasulitic -BING, DS DNA, C-anca, P-anca, HIV- negative -C3 low, total complement level, cryoglobulin levels pending - unable to have inpatient skin biopsy is dermatology no longer comes here but is willing to see the patient in office post discharge. Hepatitis C - Await Hep C RNA quant Hyponatremia, hypovolemia Acute kidney injury - Nephrology note reviewed: Likely need kidney biopsy in the future, hematology consulted Nicotine dependency - nicotine replacement Transaminitis, resolved Hypokalemia, resolved Imaging: Echocardiogram: Left ventricular ejection fraction 60 to 65%, no obvious wall motion abnormalities, moderate TR with vegetation on the tricuspid valve and concerns for endocarditis. Liver ultrasound: Hepatomegaly with mild fatty infiltration and prominence of the pancreatic duct. Data Review: Sodium 129, potassium 4.7, creatinine 1.38 RAY report reviewed, shows tricuspid valve has a large 3 x 1.1 centimeter vegetation with severe TR DVT prophylaxis: Heparin gtt Anticipated discharge date: pending clinical course Anticipated discharge place: pending clinical course Objective - Vital Signs Vital signs: Vital Signs Temp 97.8 F 02/15/23 09:26 Pulse 106 H 02/15/23 11:56 Resp 18 02/15/23 11:56 BP 106/66 02/15/23 11:56 Pulse Ox 97 02/15/23 11:56 FiO2 Intake & Output 02/14/23 02/15/23 02/15/23 18:59 06:59 18:59 Intake Total 50 240 250 Output Total 700 850 325 Balance -650 -610 -75 Intake: IV 50 10 Invasive Line 2 10 Oral 0 240 240 Output: Urine 700 850 325 Other: Voiding Method Urinal Urinal Urinal Diaper Diaper Diaper - Labs CBC & Chem 7: 02/15/23 07:46 02/15/23 11:33 Labs: Abnormal Lab Results - Last 24 Hours (Table) 02/14/23 02/15/23 02/15/23 Range/Units 07:55 07:46 07:46 RBC 3.80 L (4.30-5.90) m/uL Hgb 11.5 L (13.0-17.5) gm/dL Hct 35.7 L (39.0-53.0) % Sodium 131 L (137-145) mmol/L Potassium 5.4 H (3.5-5.1) mmol/L Carbon Dioxide 18 L (22-30) mmol/L BUN 34 H (9-20) mg/dL Creatinine (0.66-1.25) mg/dL Glucose 118 H (74-99) mg/dL Calcium 7.2 L (8.4-10.2) mg/dL Total Bilirubin 1.9 H (0.2-1.3) mg/dL Albumin 2.4 L (3.5-5.0) g/dL Complement C3 79.2 L (80.0-207.0) mg/dL 02/15/23 Range/Units 11:33 RBC (4.30-5.90) m/uL Hgb (13.0-17.5) gm/dL Hct (39.0-53.0) % Sodium 129 L (137-145) mmol/L Potassium (3.5-5.1) mmol/L Carbon Dioxide 18 L (22-30) mmol/L BUN 34 H (9-20) mg/dL Creatinine 1.38 H (0.66-1.25) mg/dL Glucose 213 H (74-99) mg/dL Calcium 7.2 L (8.4-10.2) mg/dL Total Bilirubin (0.2-1.3) mg/dL Albumin (3.5-5.0) g/dL Complement C3 (80.0-207.0) mg/dL Microbiology - Last 24 Hours (Table) 02/11/23 23:48 Blood Culture Gram Stain - Final Blood Blood Culture - Final Staphylococcus aureus 02/11/23 23:30 Blood Culture Gram Stain - Final Blood Blood Culture - Final Staphylococcus aureus
--- NOTE | 2023-02-15 15:09 | P.PN ---
Subjective Progress Note Date: 02/14/23 Principal diagnosis: Reason for follow-up is MSSA bacteremia and tricuspid valve vegetation Patient is a 47-year-old male with a past medical history significant for hepatitis C history of IV drug use and current smoker patient presenting to the ER last night for evaluation of generalized body itchy rash and weakness patient was noticed to have significant memory on the chest x-ray and a CT suspicious for septic emboli and possible endocarditis On today's evaluation that is 02/14/2023 the patient continues to be afebrile, the patient is breathing comfortably on room air without need for oxygen, the patient denies having any chest pain or cough and no sputum production, patient denies nausea vomiting or any diarrhea, and no abdominal pain Patient is a white count of 9.0, creatinine is 0.91, blood culture positive for MSSA, echocardiogram did show vegetation on the tricuspid valve with moderate tricuspid regurgitation Objective - Vital Signs Vital signs: Vital Signs Temp 97.7 F 02/14/23 08:00 Pulse 120 H 02/14/23 08:00 Resp 20 02/14/23 08:00 BP 121/70 02/14/23 08:00 Pulse Ox 96 02/14/23 08:00 FiO2 Intake & Output 02/13/23 02/14/23 02/14/23 18:59 06:59 18:59 Intake Total 1220 540 Output Total 800 450 Balance 420 90 Weight 68.6 kg Intake: Oral 1220 540 Output: Urine 800 450 Other: Voiding Method Urinal Urinal Urinal Diaper Diaper Diaper - Exam GENERAL DESCRIPTION: A middle-aged male lying in bed in no distress RESPIRATORY SYSTEM: Unlabored breathing , decreased breath sound at the base HEART: S1 S2 regular rate and rhythm , ABDOMEN: Soft , no tenderness EXTREMITIES: No edema feet - Labs CBC & Chem 7: 02/15/23 07:46 02/15/23 11:33 Labs: Abnormal Lab Results - Last 24 Hours (Table) 02/12/23 02/12/23 02/12/23 Range/Units 09:50 09:50 14:35 RBC (4.30-5.90) m/uL Hgb (13.0-17.5) gm/dL Hct (39.0-53.0) % Plt Count (150-450) k/uL Sodium (137-145) mmol/L BUN (9-20) mg/dL POC Glucose (mg/dL) (70-110) mg/dL Calcium (8.4-10.2) mg/dL Total Bilirubin (0.2-1.3) mg/dL Albumin (3.5-5.0) g/dL Czdig-9-Vfqxgyiqz 0.52 H (0.10-0.40) g/dL Vxyis-6-Ftsxtbteq 0.57 L (0.60-1.00) g/dL Gamma Globulins 2.06 H (0.70-1.50) g/dL Aldolase 11.2 H (1.2-7.6) U/L Urine Protein (Negative) Urine Blood (Negative) Urine Bilirubin (Negative) Ur Leukocyte Esterase (Negative) Urine RBC (0-5) /hpf Urine WBC (0-5) /hpf Urine Bacteria (None) /hpf Urine Mucus (None) /hpf Tot Complement (CH50) 32 L (42 - 95) U/mL 02/13/23 02/13/23 02/14/23 Range/Units 12:30 16:32 07:55 RBC 3.01 L (4.30-5.90) m/uL Hgb 9.3 L (13.0-17.5) gm/dL Hct 27.6 L (39.0-53.0) % Plt Count 134 L (150-450) k/uL Sodium (137-145) mmol/L BUN (9-20) mg/dL POC Glucose (mg/dL) 118 H (70-110) mg/dL Calcium (8.4-10.2) mg/dL Total Bilirubin (0.2-1.3) mg/dL Albumin (3.5-5.0) g/dL Awbxj-7-Xhtlgwcnm (0.10-0.40) g/dL Yppgx-4-Iexpqjuam (0.60-1.00) g/dL Gamma Globulins (0.70-1.50) g/dL Aldolase (1.2-7.6) U/L Urine Protein Trace H (Negative) Urine Blood Large H (Negative) Urine Bilirubin 1+ H (Negative) Ur Leukocyte Esterase Small H (Negative) Urine RBC 10 H (0-5) /hpf Urine WBC 36 H (0-5) /hpf Urine Bacteria Occasional H (None) /hpf Urine Mucus Rare H (None) /hpf Tot Complement (CH50) (42 - 95) U/mL 02/14/23 Range/Units 07:55 RBC (4.30-5.90) m/uL Hgb (13.0-17.5) gm/dL Hct (39.0-53.0) % Plt Count (150-450) k/uL Sodium 130 L (137-145) mmol/L BUN 32 H (9-20) mg/dL POC Glucose (mg/dL) (70-110) mg/dL Calcium 7.0 L (8.4-10.2) mg/dL Total Bilirubin 1.7 H (0.2-1.3) mg/dL Albumin 2.0 L (3.5-5.0) g/dL Hppah-2-Pcdqckpnx (0.10-0.40) g/dL Tlkou-4-Vgjerhtie (0.60-1.00) g/dL Gamma Globulins (0.70-1.50) g/dL Aldolase (1.2-7.6) U/L Urine Protein (Negative) Urine Blood (Negative) Urine Bilirubin (Negative) Ur Leukocyte Esterase (Negative) Urine RBC (0-5) /hpf Urine WBC (0-5) /hpf Urine Bacteria (None) /hpf Urine Mucus (None) /hpf Tot Complement (CH50) (42 - 95) U/mL Microbiology - Last 24 Hours (Table) 02/11/23 23:48 Blood Culture Gram Stain - Preliminary Blood Blood Culture - Preliminary Presumptive Staph aureus 02/11/23 23:30 Blood Culture Gram Stain - Preliminary Blood Blood Culture - Preliminary Presumptive Staph aureus Assessment and Plan (1) MSSA bacteremia Current Visit: Yes Status: Acute Code(s): R78.81 - BACTEREMIA; B95.61 - METHICILLIN SUSCEP STAPH INFCT CAUSING DIS CLASSD ELSR SNOMED Code(s): 304729294 (2) Infective endocarditis of tricuspid valve Current Visit: Yes Status: Acute Code(s): I33.0 - ACUTE AND SUBACUTE INFECTIVE ENDOCARDITIS SNOMED Code(s): 135384339 (3) Sepsis Current Visit: Yes Status: Acute Code(s): A41.9 - SEPSIS, UNSPECIFIED ORGAN ISM SNOMED Code(s): 10860365 Plan: 1patient was in the hospital with multiple symptoms especially with weakness patient was noted to have significant amount timidity on the chest x-ray and a CT of the chest highly suspicious for septic emboli at this patient did have history of IV drug use with the last drink was about 3 days before presentation to the hospital, concerning for septic emboli and endocarditis likely from Staph aureus 2-patient also have petechiae especially to the lower extremity could be related to his thrombocytopenia other infectious etiology not excluded and serology has been requested by admitting physician results will be followed 3-blood culture with MSSA and echocardiogram suspicious for tricuspid valve endocarditis, patient is currently waiting for RAY 4patient continue with Naficillin and and monitor clinical course closely Dictation was produced using [employer] dictation software. please excuse any gramma tical, word or spelling errors. Time with Patient: Less than 30
--- NOTE | 2023-02-15 15:12 | P.PN ---
Subjective Progress Note Date: 02/15/23 Principal diagnosis: Reason for follow-up is MSSA bacteremia and tricuspid valve vegetation Patient is a 47-year-old male with a past medical history significant for hepatitis C history of IV drug use and current smoker patient presenting to the ER last night for evaluation of generalized body itchy rash and weakness patient was noticed to have significant memory on the chest x-ray and a CT suspicious for septic emboli and possible endocarditis, patient did have a RAY on 02/14/2023 did show Tricuspid valve has a large 3.0 x 1.1 cm echodensity most consistent with vegetation with severe tricuspid regurgitation On today's evaluation that is 02/15/2023, the patient denies any fever or any chills, the patient is breathing comfortably on room air, patient denies chest pain shortness of breath, or cough, patient denies Abdominal pain and denies any nausea/vomiting or diarrhea Patient is a white count of 8.8, creatinine is 1.38, blood culture positive for MSSA Objective - Vital Signs Vital signs: Vital Signs Temp 97.8 F 02/15/23 09:26 Pulse 106 H 02/15/23 11:56 Resp 18 02/15/23 11:56 BP 106/66 02/15/23 11:56 Pulse Ox 97 02/15/23 11:56 FiO2 Intake & Output 02/14/23 02/15/23 02/15/23 18:59 06:59 18:59 Intake Total 50 240 250 Output Total 700 850 325 Balance -650 -610 -75 Intake: IV 50 10 Invasive Line 2 10 Oral 0 240 240 Output: Urine 700 850 325 Other: Voiding Method Urinal Urinal Urinal Diaper Diaper Diaper - Exam GENERAL DESCRIPTION: A middle-aged male lying in bed in no distress RESPIRATORY SYSTEM: Unlabored breathing , decreased breath sound at the base HEART: S1 S2 regular rate and rhythm , ABDOMEN: Soft , no tenderness EXTREMITIES: No edema feet - Labs CBC & Chem 7: 02/15/23 07:46 02/15/23 11:33 Labs: Abnormal Lab Results - Last 24 Hours (Table) 02/14/23 02/15/23 02/15/23 Range/Units 07:55 07:46 07:46 RBC 3.80 L (4.30-5.90) m/uL Hgb 11.5 L (13.0-17.5) gm/dL Hct 35.7 L (39.0-53.0) % Sodium 131 L (137-145) mmol/L Potassium 5.4 H (3.5-5.1) mmol/L Carbon Dioxide 18 L (22-30) mmol/L BUN 34 H (9-20) mg/dL Glucose 118 H (74-99) mg/dL Calcium 7.2 L (8.4-10.2) mg/dL Total Bilirubin 1.9 H (0.2-1.3) mg/dL Albumin 2.4 L (3.5-5.0) g/dL Complement C3 79.2 L (80.0-207.0) mg/dL Microbiology - Last 24 Hours (Table) 02/11/23 23:48 Blood Culture Gram Stain - Final Blood Blood Culture - Final Staphylococcus aureus 02/11/23 23:30 Blood Culture Gram Stain - Final Blood Blood Culture - Final Staphylococcus aureus Assessment and Plan (1) MSSA bacteremia Current Visit: Yes Status: Acute Code(s): R78.81 - BACTEREMIA; B95.61 - METHICILLIN SUSCEP STAPH INFCT CAUSING DIS CLASSD [id number] SNOMED Code(s): 058243513 (2) Infective endocarditis of tricuspid valve Current Visit: Yes Status: Acute Code(s): I33.0 - ACUTE AND SUBACUTE INFECTIVE ENDOCARDITIS SNOMED Code(s): 875083823 (3) Sepsis Current Visit: Yes Status: Acute Code(s): A41.9 - SEPSIS, UNSPECIFIED ORGANISM SNOMED Code(s): 95677328 Plan: 1patient was in the hospital with multiple symptoms especially with weakness patient was noted to have significant amount timidity on the chest x-ray and a CT of the chest highly suspicious for septic emboli at this patient did have hi story of IV drug use with the last drink was about 3 days before presentation to the hospital, concerning for septic emboli and endocarditis likely from Staph aureus 2-patient also have petechiae especially to the lower extremity could be related to his thrombocytopenia other infectious etiology not excluded and serology has been requested by admitting physician results will be followed 3-blood culture with MSSA and echocardiogram suspicious for tricuspid valve endocarditis, patient is status post RAY which did show Tricuspid valve with large 3.0 x 1.1 cm echodensity most consistent with vegetation with severe tricuspid regurgitation 4patient continue with Naficillin keeping in mind her large vegetation and the patient did have evidence of septic emboli patient benefit from transfer to [facility] for an Angiovac procedure Dictation was produced using [employer] dictation software. please excuse any grammatical, word or spelling errors. Time with Patient: Greater than 30
[2023-02-15] MEDS: HEPARIN SODIUM,PORCINE 5,000 UNIT/ML 1 ML VIAL SQ SCH ×2 (16:50→23:52)
[2023-02-15] MEDS: SODIUM CHLORIDE 0.9% 1,000 ML in EMPTY BAG 1 BAG IV SCH (23:53)
[2023-02-16] MEDS: HYDROmorphone 1 MG/ML 1 ML SYRINGE IVP PRN ×5 (04:36→18:27)
[2023-02-16] MEDS: NAFCILLIN 2 GM in DEXTROSE 5% IN WATER 100 ML IVPB SCH ×10 (04:36→20:16)
[2023-02-16] MEDS ORDERED: ATORVASTATIN 80 MG TAB PO ONE (05:00)
[2023-02-16] MEDS ORDERED: ASPIRIN 325 MG TAB PO ONE (05:00)
[2023-02-16] MEDS: METOPROLOL TARTRATE 25 MG TAB PO SCH ×2 (05:24→20:16)
[2023-02-16] MEDS: HEPARIN SODIUM,PORCINE 5,000 UNIT/ML 1 ML VIAL SQ SCH ×2 (05:24→15:10)
[2023-02-16] MEDS ORDERED: HEPARIN SODIUM,PORCINE 10,000 UNIT in SODIUM CHLORIDE 0.9% 1,000 ML IRRIGATION PRN (07:00)
[2023-02-16] MEDS ORDERED: HEPARIN SODIUM,PORCINE (1 ML) 2,500 UNIT in SODIUM CHLORIDE 0.9% 250 ML IRRIGATION PRN (07:00)
[2023-02-16] MEDS: NICOTINE 21MG/24HR PATCH TRANSDERM SCH (08:20)
[2023-02-16 08:32] LABS: Basophils # (A) 0.1 k/uL (0-0.2); Basophils % (A) 1 %; Eosinophils # (A) 0.1 k/uL (0-0.7); Eosinophils % (A) 1 %; Lymphocytes # (A) 2.6 k/uL (1.0-4.8); Lymphocytes % (A) 28 %; MCH 30.7 pg (25.0-35.0); MCHC 33.4 g/dL (31.0-37.0); MCV 91.9 fL (80.0-100.0); Mean Platelet Volume 7.8; Monocytes # (A) 0.4 k/uL (0-1.0); Monocytes % (A) 5 %; Neutrophils # (A) 5.9 k/uL (1.3-7.7); Neutrophils % (A) 63 %; Platelet Count 192 k/uL (150-450); RBC 2.94 m/uL (4.30-5.90); RDW 14.1 % (11.5-15.5); WBC 9.4 k/uL (3.8-10.6)
[2023-02-16 08:37] LABS: African American GFR (CKD) 37 (>60 ml/min/1.73 sqM); Anion Gap 9 mmol/L; Blood Urea Nitrogen 44 mg/dL (9-20); Calcium 7.1 mg/dL (8.4-10.2); Carbon Dioxide 18 mmol/L (22-30); Chloride 104 mmol/L (98-107); Glucose 100 mg/dL (74-99); Non-African American GFR(CKD) 32 (>60 ml/min/1.73 sqM); Potassium 4.4 mmol/L (3.5-5.1); Sodium 131 mmol/L (137-145)
[2023-02-16] MEDS ORDERED: VERAPAMIL 2.5 MG/ML 2 ML AMP ONE (10:21)
[2023-02-16] MEDS ORDERED: LIDOCAINE 1% INJ 10MG/ML (20 ML MDV) ONE (10:21)
[2023-02-16] MEDS ORDERED: IV FLUID CONTINUATION 900 ML IV ONE (10:21)
[2023-02-16] MEDS ORDERED: fentaNYL (PF) 50 MCG/ML 2 ML AMP ONE (10:29)
[2023-02-16] MEDS ORDERED: MIDAZOLAM 2 MG/2 ML VIAL IVP ONE (10:29)
[2023-02-16] MEDS ORDERED: HEPARIN SODIUM 1,000 UN/ML (10ML VL) ONE (10:29)
[2023-02-16] MEDS ORDERED: fentaNYL (PF) 50 MCG/ML 2 ML AMP IVP ONE (10:30)
[2023-02-16] MEDS ORDERED: LIDOCAINE 1% INJ 10MG/ML (20 ML MDV) SQ ONE (10:46)
--- NOTE | 2023-02-16 10:47 | P.PN ---
Subjective Patient is seen in follow-up for hyponatremia. Sodium level better. Renal function worse with creatinine 2.36 today. Has been voiding. Vital signs are stable. General: No acute distress. HEENT: Head exam is unremarkable. LUNGS: No audible rhonchi or wheezes. HEART: Rate and Rhythm are regular. ABDOMEN: Nontender. EXTREMITITES: No edema. Rash improved. Objective - Vital Signs Vital signs: Vital Signs Temp 97.8 F 02/16/23 08:17 Pulse 99 02/16/23 08:17 Resp 18 02/16/23 08:17 BP 120/76 02/16/23 08:17 Pulse Ox 97 02/16/23 08:17 FiO2 Intake & Output 02/15/23 02/16/23 02/16/23 18:59 06:59 18:59 Intake Total 378 260 10 Output Total 325 350 Balance 53 -90 10 Intake: IV 20 20 10 Invasive Line 2 20 20 10 Oral 358 240 Output: Urine 325 350 Other: Voiding Method Urinal Urinal Urinal Diaper Diaper Diaper # Voids 1 # Bowel Movements 1 - Labs CBC & Chem 7: 02/16/23 07:58 02/16/23 07:58 Labs: Abnormal Lab Results - Last 24 Hours (Table) 02/15/23 02/15/23 02/16/23 Range/Units 11:33 13:55 07:58 RBC 2.94 L (4.30-5.90) m/uL Hgb 9.0 L D (13.0-17.5) gm/dL Hct 27.0 L (39.0-53.0) % Sodium 129 L (137-145) mmol/L Carbon Dioxide 18 L (22-30) mmol/L BUN 34 H (9-20) mg/dL Creatinine 1.38 H (0.66-1.25) mg/dL Glucose 213 H (74-99) mg/dL Calcium 7.2 L (8.4-10.2) mg/dL Troponin I 0.069 H* (0.000-0.034) ng/mL 02/16/23 Range/Units 07:58 RBC (4.30-5.90) m/uL Hgb (13.0-17.5) gm/dL Hct (39.0-53.0) % Sodium 131 L (137-145) mmol/L Carbon Dioxide 18 L (22-30) mmol/L BUN 44 H (9-20) mg/dL Creatinine 2.36 H (0.66-1.25) mg/dL Glucose 100 H (74-99) mg/dL Calcium 7.1 L (8.4-10.2) mg/dL Troponin I (0.000-0.034) ng/mL Microbiology - Last 24 Hours (Table) 02/14/23 07:55 Blood Culture Gram Stain - Preliminary Blood Blood Culture - Preliminary Presumptive Staph aureus Assessment and Plan Plan: Assessment: 1. Hypovolemic hyponatremia with component of poor solute intake. Urine osmolality 399. Urine sodium less than 20. TSH normal. Sodium level 131 today. 2. Hypokalemia from poor intake. Replaced. Better. 3. Petechial erythematous rash. UA with trace protein and RBCs. 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 Also can be petechiae induced from infective endocarditis. Improved. Urine eosinophils negative. C3 mildly low and C4 normal - would expect to see low C4 in hep C induced GN. ANCA titers negative. BING negative. Serum immunofixation positive for IgG Paraprotein. Hep C can be a risk factor for monoclonal gammopathy. 4. Polysubstance drug abuse. 5. Proteinuria and hematuria noted on UA. UPC 0.22. 6. Staph aureus bacteremia with concern for underlying tricuspid valve endocarditis. RAY done 02/14/2023 showed severe tricuspid regurgitation with large vegetation. 7. Acute kidney injury secondary to septic ATN. Rule out urinary retention and obstructive uropathy. Plan: Currently receiving IV fluids for possible cardiac catheterization. Maintain 1500 mL fluid restriction. Encouraged oral intake. F/u cryoglobulin levels. Check bladder scan to rule out urinary retention. Check renal ultrasound. Consider skin biopsy. Dermatology consulted. Discussed kidney biopsy for definitive diagnosis in near future. Hematology oncology consulted for further workup for monoclonal gammopathy. Risk of worsening renal failure, potentially requiring renal replacement therapy, post-IV contrast exposure discussed with patient. He understands.
[2023-02-16 11:09] LABS: O2 Sat Blood Gas 64.1 %
[2023-02-16 11:10] LABS: O2 Sat Blood Gas 64.5 %
[2023-02-16] MEDS: SODIUM CHLORIDE 0.9% 1,000 ML in EMPTY BAG 1 BAG IV SCH (11:41)
[2023-02-16] MEDS: SODIUM BICARBONATE TAB 650 MG TAB PO SCH ×2 (11:44→20:16)
--- NOTE | 2023-02-16 13:10 | US ---
EXAMINATION TYPE: US kidneys/renal and bladder DATE OF EXAM: 02/16/2023 Exam done portable COMPARISON: CT 02/12/2023. CLINICAL INDICATION: Male, 47 years old with history of esequiel; EXAM MEASUREMENTS: Right Kidney: 11.8 x 4.9 x 5.5 cm Left Kidney: 11.0 x 4.8 x 6.4 cm Right Kidney: wnl Left Kidney: 1.5cm hypoechoic area superior pole Bladder: wnl Bilateral Jets seen: yes Bilateral pleural effusions There is no evidence for hydronephrosis at this point in time. No nephrolithiasis is seen. No favian s are identified. The urinary bladder is anechoic. Bilateral ureteral jets are seen. IMPRESSION: 1. No evidence for acute process. 2. Trace bilateral pleural effusions.
--- NOTE | 2023-02-16 13:48 | P.PN ---
Subjective Progress Note Date: 02/16/23 Patient is a 47-year-old male with ongoing IV drug use who is experiencing homelessness and is dependent on nicotine products who presented to the emergency room for generalized body aches and rash. On arrival to the ER he was tachycardic with a pulse of 112. Initial labs performed in the emergency department were remarkable for white blood cell count of 60, platelets of 80, sodium 121, potassium 3, chloride 81, BUN 47, lactic acid 3, bilirubin 1.8, AST 65, ALT 52. Initial influenza A/B/RSV/COVID-19 testing was negative. Patient had troponins drawn several hours later which were positive at 0.135. He underwent a CT chest which showed numerous predominant cystic/necrotic masses throughout the lungs with a pleural-based left apical mass findings are suspicious for metastatic disease, septic emboli less likely. Initial EKG showed some J-point depression with sinus tachycardia at a rate of 112. In the ER he was given 2 L of normal saline and started on normal saline at 130 cc/h. He was also given a dose of cefepime. Arrangements were made for admission. Troponin was slightly elevated and the patient was therefore started on heparin drip. He was continued on vancomycin and cefepime. Cardiology, infectious disease, and nephrology were consulted.Patient's blood cultures did come back positive for Staph aureus. He also tested positive for hepatitis C. Transthoracic echo showed possible tricuspid valve vegetations. Patietns antibiotics were transitioned to naficillin. He is still persistently bacteremic. Patient seen and examined at bedside. Patient is slightly better today. Denies any urinary or bowel complaints. Making urine. Vital signs reviewed General: Ill appearing, no distress, appears at stated age Cardiovascular: S1S2 tachy, no murmur, positive posterior tibial pulse bilateral, Lungs: Course bs bilateral, no rhonchi, no rales, no accessory muscle use Derm: Petechial rash with convalescence covering trunk and bilateral thighs and arms with sparing of the palms and soles. Abdominal: Soft, nontender to palpation, no guarding, no appreciable org anomegaly Ext: No gross muscle atrophy, no edema b/l lower extremities, no contractures Neuro: CN II-XI grossly intact, no focal neuro deficits Psych: Alert, oriented, appropriate affect Assessment/Plan: Patient is critically ill, prognosis guarded. 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 - completed 48 hours of heparin gtt -Discussed management with cardiology, had a right heart cath today -Pain control with IV Dilaudid 0.5 every 3 hours as needed, and 1 mg IV every 3 hours as needed Dermatitis, appears vasulitic -BING, DS DNA, C-anca, P-anca, HIV- negative -C3 low, total complement level, cryoglobulin levels pending - unable to have inpatient skin biopsy is dermatology no longer comes here but is willing to see the patient in office post discharge. Hepatitis C - Await Hep C RNA quant Hyponatremia, hypovolemia Acute kidney injury - Nephrology note reviewed: Likely need kidney biopsy in the future, hematology consulted Nicotine dependency - nicotine replacement Transaminitis, resolved Hypokalemia, resolved Imaging: Echocardiogram: Left ventricular ejection fraction 60 to 65%, no obvious wall motion abnormalities, moderate TR with vegetation on the tricuspid valve and concerns for endocarditis. Liver ultrasound: Hepatomegaly with mild fatty infiltration and prominence of the pancreatic duct. RAY report reviewed, shows tricuspid valve has a large 3 x 1.1 centimeter vegetation with severe TR Data Review: WBC 9.4, hemoglobin 9, sodium 131, creatinine 2.36, mag 2.0 Bladder US, no acute process. DVT prophylaxis: Heparin gtt Anticipated discharge date: pending clinical course Anticipated discharge place: pending clinical course Objective - Vital Signs Vital signs: Vital Signs Temp 97.7 F 02/16/23 11:28 Pulse 105 H 02/16/23 13:15 Resp 16 02/16/23 13:15 BP 118/79 02/16/23 13:15 Pulse Ox 98 02/16/23 13:15 FiO2 Intake & Output 02/15/23 02/16/23 02/16/23 18:59 06:59 18:59 Intake Total 378 260 770 Output Total 325 350 475 Balance 53 -90 295 Intake: IV 20 20 510 Invasive Line 2 20 20 10 Intake, IV Titration 150 Amount Nafcillin 2 gm In 150 Dextrose 5% in Water 100 ml @ 50 mls/hr IVPB Q4HR [facility] Rx#:[id number] Oral 358 240 110 Output: Urine 325 350 475 Other: Voiding Method Urinal Urinal Urinal Diaper Diaper Diaper # Voids 1 1 # Bowel Movements 1 - Labs CBC & Chem 7: 02/16/23 07:58 02/16/23 07:58 Labs: Abnormal Lab Results - Last 24 Hours (Table) 02/15/23 02/16/23 02/16/23 Range/Units 13:55 07:58 07:58 RBC 2.94 L (4.30-5.90) m/uL Hgb 9.0 L D (13.0-17.5) gm/dL Hct 27.0 L (39.0-53.0) % Sodium 131 L (137-145) mmol/L Carbon Dioxide 18 L (22-30) mmol/L BUN 44 H (9-20) mg/dL Creatinine 2.36 H (0.66-1.25) mg/dL Glucose 100 H (74-99) mg/dL Calcium 7.1 L (8.4-10.2) mg/dL Troponin I 0.069 H* (0.000-0.034) ng/mL Microbiology - Last 24 Hours (Table) 02/14/23 07:55 Blood Culture Gram Stain - Preliminary Blood Blood Culture - Preliminary Presumptive Staph aureus
--- NOTE | 2023-02-16 16:02 | P.PN ---
Subjective Progress Note Date: 02/16/23 Principal diagnosis: Reason for follow-up is MSSA bacteremia and tricuspid valve vegetation Patient is a 47-year-old male with a past medical history significant for hepatitis C history of IV drug use and current smoker patient presenting to the ER last night for evaluation of generalized body itchy rash and weakness patient was noticed to have significant memory on the chest x-ray and a CT suspicious for septic emboli and possible endocarditis, patient did have a RAY on 02/14/2023 did show Tricuspid valve has a large 3.0 x 1.1 cm echodensity most consistent with vegetation with severe tricuspid regurgitation On today's evaluation that is 02/16/2023, the patient remains to be afebrile patient is hemodynamically stable and is breathing comfortably on room air d enies any chest pain or shortness with occasional cough no nausea no vomiting no abdominal pain no diarrhea. The patient white count of 9.4, creatinine is 2.36, blood culture still positive for MSSA Objective - Vital Signs Vital signs: Vital Signs Temp 97.7 F 02/16/23 11:28 Pulse 97 02/16/23 12:00 Resp 16 02/16/23 12:15 BP 139/73 02/16/23 12:15 Pulse Ox 100 02/16/23 11:45 FiO2 Intake & Output 02/15/23 02/16/23 02/16/23 18:59 06:59 18:59 Intake Total 378 260 510 Output Total 325 350 Balance 53 -90 510 Intake: IV 20 20 510 Invasive Line 2 20 20 10 Oral 358 240 Output: Urine 325 350 Other: Voiding Method Urinal Urinal Urinal Diaper Diaper Diaper # Voids 1 # Bowel Movements 1 - Exam GENERAL DESCRIPTION: A middle-aged male lying in bed in no distress RESPIRATORY SYSTEM: Unlabored breathing , decreased breath sound at the base HEART: S1 S2 regular rate and rhythm , ABDOMEN: Soft , no tenderness EXTREMITIES: No edema feet - Labs CBC & Chem 7: 02/16/23 07:58 02/16/23 07:58 Labs: Abnormal Lab Results - Last 24 Hours (Table) 02/15/23 02/15/23 02/16/23 Range/Units 11:33 13:55 07:58 RBC 2.94 L (4.30-5.90) m/uL Hgb 9.0 L D (13.0-17.5) gm/dL Hct 27.0 L (39.0-53.0) % Sodium 129 L (137-145) mmol/L Carbon Dioxide 18 L (22-30) mmol/L BUN 34 H (9-20) mg/dL Creatinine 1.38 H (0.66-1.25) mg/dL Glucose 213 H (74-99) mg/dL Calcium 7.2 L (8.4-10.2) mg/dL Troponin I 0.069 H* (0.000-0.034) ng/mL 02/16/23 Range/Units 07:58 RBC (4.30-5.90) m/uL Hgb (13.0-17.5) gm/dL Hct (39.0-53.0) % Sodium 131 L (137-145) mmol/L Carbon Dioxide 18 L (22-30) mmol/L BUN 44 H (9-20) mg/dL Creatinine 2.36 H (0.66-1.25) mg/dL Glucose 100 H (74-99) mg/dL Calcium 7.1 L (8.4-10.2) mg/dL Troponin I (0.000-0.034) ng/mL Microbiology - Last 24 Hours (Table) 02/14/23 07:55 Blood Culture Gram Stain - Preliminary Blood Blood Culture - Preliminary Presumptive Staph aureus Assessment and Plan (1) MSSA bacteremia Current Visit: Yes Status: Acute Code(s): R78.81 - BACTEREMIA; B95.61 - METHICILLIN SUSCEP STAPH INFCT CAUSING DIS CLASSD [id number] SNOMED Code(s): 821451754 (2) Infective endocarditis of tricuspid valve Current Visit: Yes Status: Acute Priority: High Code(s): I33.0 - ACUTE AND SUBACUTE INFECTIVE ENDOCARDITIS SNOMED Code(s): 126202152 (3) Sepsis Current Visit: Yes Status: Acute Priority: High Code(s): A41.9 - SEPSIS, UNSPECIFIED ORGANISM SNOMED Code(s): 43796133 Plan: 1patient was in the hospital with multiple symptoms especially with weakness patient was noted to have significant amount timidity on the chest x-ray and a CT of the chest highly suspicious for septic emboli at this patient did have history of IV drug use with the last drink was about 3 days before presentation to the hospital, concerning for septic emboli and endocarditis likely from Staph aureus 2-patient also have petechiae especially to the lower extremity could be related to his thrombocytopenia other infectious etiology not excluded and serology has been requested by admitting physician results will be followed 3-blood culture with MSSA and echocardiogram suspicious for tricuspid valve endocarditis, patient is status post RAY which did show Tricuspid valve with large 3.0 x 1.1 cm echodensity most consistent with vegetation with severe tricuspid regurgitation 4patient continue with Naficillin keeping in mind pt large vegetation and the patient did have evidence of septic emboli , Patient is a surgical candidate and needs surgery versus transfer to [facility] for angio VAC procedure this was discussed in detail with the admitting team for now continue with naficillin, keeping in mind his worsening kidney function creatinine need to be monitored closely nephrology already on the case Dictation was produced using [employer] dictation software. please excuse any grammatical, word or spelling errors. Time with Patient: Less than 30
--- NOTE | 2023-02-16 16:26 | P.CNPUL ---
History of Present Illness Consult date: 02/16/23 Requesting physician: Sai Pham Reason for consult: lung mass Chief complaint: Weakness and rash. 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 Patient was admitted to the hospital on 02/12/2023, he came in mostly with symptoms of few days' history of generalized aches pain in the rash and weakness. Patient is homeless, workup since admission revealed that the patient has a right-sided endocarditis and multiple septic pulmonary emboli. His last heroin injection was actually 7 days ago. Since admission, the patient was seen by many consultants including cardiology, cardiac surgery, infectious disease, patient had a transthoracic echocardiogram showing good LV function, and moderate tricuspid regurgitation with vegetations. RAY confirmed tricuspid vegetations and regurgitations. Patient is now on antibiotics, being followed by infectious disease. Chest x-ray and CT of the chest done on this admission showed multifocal airspace opacities consistent with multiple septic pulmonary emboli. The possibility of underlying malignancy is less likely. During my evaluation, the patient had no shortness of breath, no cough, no wheezing, no chest pain, and no hemoptysis. Review of Systems CONSTITUTIONAL: Generalized weakness, no fever no chills HEENT: Negative CARDIOVASCULAR: Denies chest pain or orthopnea PND RESPIRATORY: Denies cough wheezing hemoptysis or chest pain GASTROINTESTINAL: Negative no nausea vomiting abdominal pain HEMATOLOGIC: Negative GENITOURINARY: Negative SKIN: Rash on admission which has been resolving. Psychiatric: Denies any symptoms of depression Past Medical History Past Medical History: No Reported History Additional Past Medical History / Comment(s): hep c History of Any Multi-Drug Resistant Organisms: None Reported Past Surgical History: No Surgical Hx Reported Past Anesthesia/Blood Transfusion Reactions: No Reported Reaction Past Psychological History: No Psychological Hx Reported Smoking Status: Current every day smoker, Vaper Past Alcohol Use History: None Reported, Occasional Past Drug Use History: Heroin, IV Drug Use, Marijuana, Methamphetamine, Opiates Medications and Allergies Home Medications Medication Instructions Recorded Confirmed Type No Known Home Medications 02/21/17 02/12/23 History Allergies Allergy/AdvReac Type Severity Reaction Status Date / Time No Known Allergies Allergy Verified 02/12/23 06:33 Physical Exam Vitals: Vital Signs Temp Pulse Resp BP BP Pulse Ox 02/16/23 15:07 98.2 F 109 H 16 124/82 98 02/16/23 14:15 104 H 16 122/78 98 02/16/23 13:15 105 H 16 118/79 98 02/16/23 12:45 103 H 16 135/63 98 02/16/23 12:15 99 16 139/73 99 02/16/23 12:00 97 16 139/69 99 02/16/23 11:45 16 128/86 100 02/16/23 11:28 97.7 F 16 99/72 98 02/16/23 08:17 97.8 F 99 18 120/76 97 02/16/23 04:00 98.3 F 107 H 16 135/79 98 02/16/23 00:00 98.0 F 100 16 124/81 97 02/15/23 20:00 98.3 F 106 H 16 124/84 98 02/15/23 16:31 98.1 F 112 H 16 107/65 97 Intake and Output 02/16/23 02/16/23 02/16/23 06:59 14:59 22:59 Intake Total 10 770 Output Total 475 Balance 10 295 Intake: IV 10 510 Invasive Line 2 10 10 Intake, IV Titration 150 Amount Nafcillin 2 gm In 150 Dextrose 5% in Water 100 ml @ 50 mls/hr IVPB Q4HR [facility] Rx#:[id number] Oral 110 Output: Urine 475 Other: Voiding Method Urinal Urinal Diaper Diaper # Voids 1 1 # Bowel Movements 1 Physical Exam: Revealed 47-year-old white male in no distress on room air Head: Atraumatic, normocephalic HEENT:[Neck is supple.] [No neck masses.] [No thyromegaly.] [No JVD.] Chest: [Clear throughout, no crackles, no rhonchi, no wheezes.] Cardiac Exam: [Normal S1 and S2, no S3 gallop, 3/6 systolic murmur throughout the precordium. Abdomen: [Soft, nontender, no megaly, no rebound, no guarding, normal bowel sounds.] Extremities: [No clubbing, no edema, no cyanosis.] Neurological Exam: [No focal neurologic deficit.] Alert and oriented 3 Psychiatric: Normal mood affect and normal examination. Skin: Multiple areas of mild erythema noted on lower extremities bilaterally. Results - Laboratory Findings CBC and BMP: 02/16/23 07:58 02/16/23 07:58 PT/INR, D-dimer PT 13.3 sec (10.0-12.5) H 02/13/23 08:56 INR 1.3 (<1.2) H 02/13/23 08:56 Abnormal lab findings: Abnormal Labs 02/11/23 02/11/23 02/11/23 21:01 21:01 21:01 WBC 16.0 H RBC 4.14 L Hgb 12.6 L Hct 36.0 L Plt Count 80 L Lymphocytes # (Manual) ESR PT INR APTT Sodium 121 L Potassium 3.0 L Chloride 81 L Carbon Dioxide BUN 47 H Creatinine Glucose POC Glucose (mg/dL) Osmolality Plasma Lactic Acid Pualo 3.0 H* Calcium 7.6 L Total Bilirubin 1.8 H AST 62 H ALT 52 H Creatine Kinase Troponin I C-Reactive Protein Total Protein (PEP) Albumin 2.7 L Albumin (PEP) Tmpic-5-Bztmhsnxu Wlrur-4-Oqxtcvnbf Gamma Globulins Aldolase Urine Protein Urine Blood Urine Bilirubin Ur Leukocyte Esterase Urine RBC Urine WBC Urine Bacteria Urine Mucus Ur Random Sodium Ur Amphetamines Screen U Methamphetamines Scrn U Marijuana (THC) Screen IgG IgA Complement C3 Tot Complement (CH50) Hep C IgG Ab 02/11/23 02/12/23 02/12/23 23:45 02:59 07:30 WBC RBC Hgb Hct Plt Count Lymphocytes # (Manual) ESR PT INR APTT Sodium Potassium Chloride Carbon Dioxide BUN Creatinine Glucose POC Glucose (mg/dL) Osmolality Plasma Lactic Acid Paulo Calcium Total Bilirubin AST ALT Creatine Kinase Troponin I 0.135 H* 0.149 H* C-Reactive Protein Total Protein (PEP) Albumin Albumin (PEP) Dapdb-9-Kvcrdmatj Xhgmy-5-Zxubivmhi Gamma Globulins Aldolase Urine Protein Trace H Urine Blood Urine Bilirubin Ur Leukocyte Esterase Urine RBC 8 H Urine WBC 9 H Urine Bacteria Urine Mucus Rare H Ur Random Sodium Ur Amphetamines Screen U Methamphetamines Scrn U Marijuana (THC) Screen IgG IgA Complement C3 Tot Complement (CH50) Hep C IgG Ab 02/12/23 02/12/23 02/12/23 07:45 07:45 07:45 WBC RBC Hgb Hct Plt Count Lymphocytes # (Manual) ESR PT INR APTT Sodium 123 L Potassium 3.4 L Chloride 91 L Carbon Dioxide BUN 39 H Creatinine Glucose 113 H POC Glucose (mg/dL) Osmolality 268 L Plasma Lactic Acid Paulo Calcium 6.7 L Total Bilirubin AST ALT Creatine Kinase Troponin I C-Reactive Protein Total Protein (PEP) Albumin Albumin (PEP) Brret-2-Cqfxshyhi Qxyvh-0-Fhmwvijyl Gamma Globulins Aldolase Urine Protein Urine Blood Urine Bilirubin Ur Leukocyte Esterase Urine RBC Urine WBC Urine Bacteria Urine Mucus Ur Random Sodium <20 L Ur Amphetamines Screen Detected H U Methamphetamines Scrn Detected H U Marijuana (THC) Screen Detected H IgG IgA Complement C3 Tot Complement (CH50) Hep C IgG Ab 02/12/23 02/12/23 02/12/23 07:45 07:45 07:45 WBC RBC Hgb Hct Plt Count Lymphocytes # (Manual) ESR PT 13.3 H INR 1.3 H APTT Sodium Potassium Chloride Carbon Dioxide BUN Creatinine Glucose POC Glucose (mg/dL) Osmolality Plasma Lactic Acid Paulo Calcium Total Bilirubin 1.8 H AST ALT Creatine Kinase Troponin I 0.127 H* C-Reactive Protein Total Protein (PEP) Albumin Albumin (PEP) Ksmmx-6-Tmyesxivq Mbxyb-6-Bttjoksem Gamma Globulins Aldolase Urine Protein Urine Blood Urine Bilirubin Ur Leukocyte Esterase Urine RBC Urine WBC Urine Bacteria Urine Mucus Ur Random Sodium Ur Amphetamines Screen U Methamphetamines Scrn U Marijuana (THC) Screen IgG IgA Complement C3 Tot Complement (CH50) Hep C IgG Ab 02/12/23 02/12/23 02/12/23 07:59 09:50 09:50 WBC RBC 3.17 L Hgb 10.0 L D Hct 27.7 L Plt Count 60 L Lymphocytes # (Manual) 0.39 L ESR 49 H PT INR APTT Sodium Potassium Chloride Carbon Dioxide BUN Creatinine Glucose POC Glucose (mg/dL) Osmolality Plasma Lactic Acid Paulo Calcium Total Bilirubin AST ALT Creatine Kinase <20 L Troponin I C-Reactive Protein 8.9 H Total Protein (PEP) Albumin Albumin (PEP) Afecn-3-Rbnronepo Sobcn-2-Qiijmpeph Gamma Globulins Aldolase Urine Protein Urine Blood Urine Bilirubin Ur Leukocyte Esterase Urine RBC Urine WBC Urine Bacteria Urine Mucus Ur Random Sodium Ur Amphetamines Screen U Methamphetamines Scrn U Marijuana (THC) Screen IgG IgA Complement C3 Tot Complement (CH50) Hep C IgG Ab 02/12/23 02/12/23 02/12/23 09:50 09:50 09:50 WBC RBC Hgb Hct Plt Count Lymphocytes # (Manual) ESR PT INR APTT Sodium Potassium Chloride Carbon Dioxide BUN Creatinine Glucose POC Glucose (mg/dL) Osmolality Plasma Lactic Acid Paulo Calcium Total Bilirubin AST ALT Creatine Kinase Troponin I C-Reactive Protein Total Protein (PEP) Albumin Albumin (PEP) Phsiq-1-Wmahgeade Damvs-1-Haiqtsjmt Gamma Globulins Aldolase 11.2 H Urine Protein Urine Blood Urine Bilirubin Ur Leukocyte Esterase Urine RBC Urine WBC Urine Bacteria Urine Mucus Ur Random Sodium Ur Amphetamines Screen U Methamphetamines Scrn U Marijuana (THC) Screen IgG IgA Complement C3 Tot Complement (CH50) 32 L Hep C IgG Ab Reactive A 02/12/23 02/12/23 02/12/23 14:35 14:35 14:35 WBC RBC Hgb Hct Plt Count Lymphocytes # (Manual) ESR PT INR APTT 34.0 H Sodium 127 L Potassium 3.4 L Chloride 95 L Carbon Dioxide BUN 36 H Creatinine Glucose 130 H POC Glucose (mg/dL) Osmolality Plasma Lactic Acid Paulo Calcium 6.8 L Total Bilirubin AST ALT Creatine Kinase Troponin I C-Reactive Protein Total Protein (PEP) 5.5 L Albumin Albumin (PEP) 1.8 L Pwcto-4-Yxgqujfry 0.52 H Sgnis-3-Tkcolqktc 0.57 L Gamma Globulins 2.06 H Aldolase Urine Protein Urine Blood Urine Bilirubin Ur Leukocyte Esterase Urine RBC Urine WBC Urine Bacteria Urine Mucus Ur Random Sodium Ur Amphetamines Screen U Methamphetamines Scrn U Marijuana (THC) Screen IgG 1908.0 H IgA 699.0 H Complement C3 Tot Complement (CH50) Hep C IgG Ab 02/13/23 02/13/23 02/13/23 08:56 08:56 08:56 WBC RBC 3.11 L Hgb 9.3 L Hct 28.1 L Plt Count 90 L Lymphocytes # (Manual) ESR PT 13.3 H INR 1.3 H APTT Sodium 131 L Potassium Chloride Carbon Dioxide BUN 37 H Creatinine Glucose 107 H POC Glucose (mg/dL) Osmolality Plasma Lactic Acid Paulo Calcium 6.7 L Total Bilirubin AST ALT Creatine Kinase Troponin I C-Reactive Protein Total Protein (PEP) Albumin Albumin (PEP) Hprpm-8-Unfaqwwdp Ffldp-4-Pdaxzgrpo Gamma Globulins Aldolase Urine Protein Urine Blood Urine Bilirubin Ur Leukocyte Esterase Urine RBC Urine WBC Urine Bacteria Urine Mucus Ur Random Sodium Ur Amphetamines Screen U Methamphetamines Scrn U Marijuana (THC) Screen IgG IgA Complement C3 Tot Complement (CH50) Hep C IgG Ab 02/13/23 02/13/23 02/13/23 08:56 12:30 16:32 WBC RBC Hgb Hct Plt Count Lymphocytes # (Manual) ESR PT INR APTT 32.4 H Sodium Potassium Chloride Carbon Dioxide BUN Creatinine Glucose POC Glucose (mg/dL) 118 H Osmolality Plasma Lactic Acid Paulo Calcium Total Bilirubin AST ALT Creatine Kinase Troponin I C-Reactive Protein Total Protein (PEP) Albumin Albumin (PEP) Vpwir-1-Venrcznrk Lyaug-7-Hllfnfzri Gamma Globulins Aldolase Urine Protein Trace H Urine Blood Large H Urine Bilirubin 1+ H Ur Leukocyte Esterase Small H Urine RBC 10 H Urine WBC 36 H Urine Bacteria Occasional H Urine Mucus Rare H Ur Random Sodium Ur Amphetamines Screen U Methamphetamines Scrn U Marijuana (THC) Screen IgG IgA Complement C3 Tot Complement (CH50) Hep C IgG Ab 02/14/23 02/14/23 02/15/23 07:55 07:55 07:46 WBC RBC 3.01 L 3.80 L Hgb 9.3 L 11.5 L Hct 27.6 L 35.7 L Plt Count 134 L Lymphocytes # (Manual) ESR PT INR APTT Sodium 130 L Potassium Chloride Carbon Dioxide BUN 32 H Creatinine Glucose POC Glucose (mg/dL) Osmolality Plasma Lactic Acid Paulo Calcium 7.0 L Total Bilirubin 1.7 H AST ALT Creatine Kinase Troponin I C-Reactive Protein Total Protein (PEP) Albumin 2.0 L Albumin (PEP) Yowwn-5-Jygfzvubd Huhrv-2-Ohywtbrai Gamma Globulins Aldolase Urine Protein Urine Blood Urine Bilirubin Ur Leukocyte Esterase Urine RBC Urine WBC Urine Bacteria Urine Mucus Ur Random Sodium Ur Amphetamines Screen U Methamphetamines Scrn U Marijuana (THC) Screen IgG IgA Complement C3 79.2 L Tot Complement (CH50) Hep C IgG Ab 02/15/23 02/15/23 02/15/23 07:46 11:33 13:55 WBC RBC Hgb Hct Plt Count Lymphocytes # (Manual) ESR PT INR APTT Sodium 131 L 129 L Potassium 5.4 H Chloride Carbon Dioxide 18 L 18 L BUN 34 H 34 H Creatinine 1.38 H Glucose 118 H 213 H POC Glucose (mg/dL) Osmolality Plasma Lactic Acid Paulo Calcium 7.2 L 7.2 L Total Bilirubin 1.9 H AST ALT Creatine Kinase Troponin I 0.069 H* C-Reactive Protein Total Protein (PEP) Albumin 2.4 L Albumin (PEP) Jcfqh-0-Taylthzwo Ruknd-2-Zqgiyeayh Gamma Globulins Aldolase Urine Protein Urine Blood Urine Bilirubin Ur Leukocyte Esterase Urine RBC Urine WBC Urine Bacteria Urine Mucus Ur Random Sodium Ur Amphetamines Screen U Methamphetamines Scrn U Marijuana (THC) Screen IgG IgA Complement C3 Tot Complement (CH50) Hep C IgG Ab 02/16/23 02/16/23 07:58 07:58 WBC RBC 2.94 L Hgb 9.0 L D Hct 27.0 L Plt Count Lymphocytes # (Manual) ESR PT INR APTT Sodium 131 L Potassium Chloride Carbon Dioxide 18 L BUN 44 H Creatinine 2.36 H Glucose 100 H POC Glucose (mg/dL) Osmolality Plasma Lactic Acid Paulo Calcium 7.1 L Total Bilirubin AST ALT Creatine Kinase Troponin I C-Reactive Protein Total Protein (PEP) Albumin Albumin (PEP) Vjqrg-7-Klpkzoiev Tqqfe-8-Eajdxyqbn Gamma Globulins Aldolase Urine Protein Urine Blood Urine Bilirubin Ur Leukocyte Esterase Urine RBC Urine WBC Urine Bacteria Urine Mucus Ur Random Sodium Ur Amphetamines Screen U Methamphetamines Scrn U Marijuana (THC) Screen IgG IgA Complement C3 Tot Complement (CH50) Hep C IgG Ab - Diagnostic Findings CT scan - chest: image reviewed (CT of the chest showed numerous neck chronic masses throughout the lungs with more ill-defined infiltrative lesion in the lower lobes, very much consistent with septic emboli. Metastatic disease is in the differential, but the clinical history is mostly a clinical history of septic emboli) Assessment and Plan Assessment: Impression: Infective endocarditis/tricuspid valve endocarditis MSSA bacteremia Septic pulmonary emboli History of IVDA/heroin abuse Tobacco dependence syndrome Acute kidney injury secondary to septic acute tubular necrosis Petechial erythematous rash, possible vasculitis Recommendation: Continue present supportive care measures Continue antibiotics as per infectious disease on the case Would not consider any lung biopsies at this point, Would not recommend any bronchoscopy or biopsy at this point, The findings on the lungs are related to septic emboli unless proven otherwise. We will continue to follow Time with Patient: Greater than 30
--- NOTE | 2023-02-16 16:51 | P.CONS ---
History of Present Illness - Reason for Consult Consult date: 02/16/23 paraproteinemia Requesting physician: Evgeny Adams - Chief Complaint weakness, endocarditis - History of Present Illness Patient is a 47 year old male with a history of IV drug abuse and hepatitis C. Consult was placed for paraproteinemia. patient presented to the emergency room with complaints of generalized weakness and rash. Patient was found to be septic with positive blood cultures as well as staph endocarditis. Patient continues on IV antibiotics. Infectious disease and cardiology following. CT chest revealed numerous predominantly cystic/necrotic masses throughout the lungs as well as ill-defined infiltrative lesions in the lower lobes. Pleural based left apical mass measuring 2.7 x 1.0 cm. Ultrasound liver showing hepatomegaly with mild fatty infiltration. Prominence of the pancreatic duct within the body of the pancreas. CBC revealed WBC 9.4, hemoglobin 9.0, platelets today 192,000. Upon admission platelets were 60,000. Creatinine wor sening since admission, 2.36 today. GFR 32. Hepatitis C reactive. Hep C RNA quantitative pending. LFTs normal. Bilirubin 1.9. Pt reports he has not followed up or received treatment since being diagnosed 1 year ago. Immunofixation was suspicious for IgG [place]. M spike not quantifiable. BING and rheumatoid factor negative. IgG elevated at 1908, IgA 699, IgM 237. Review of Systems 10 point ROS is negative except as stated in the HPI Past Medical History Past Medical History: No Reported History Additional Past Medical History / Comment(s): hep c History of Any Multi-Drug Resistant Organisms: None Reported Past Surgical History: No Surgical Hx Reported Past Anesthesia/Blood Transfusion Reactions: No Reported Reaction Past Psychological History: No Psychological Hx Reported Smoking Status: Current every day smoker, Vaper Past Alcohol Use History: None Reported, Occasional Past Drug Use History: Heroin, IV Drug Use, Marijuana, Methamphetamine, Opiates Medications and Allergies Home Medications Medication Instructions Recorded Confirmed Type No Known Home Medications 02/21/17 02/12/23 History Allergies Allergy/AdvReac Type Severity Reaction Status Date / Time No Known Allergies Allergy Verified 02/12/23 06:33 Physical Exam Vitals: Vital Signs Temp Pulse Resp BP BP Pulse Ox 02/16/23 13:15 105 H 16 118/79 98 02/16/23 12:45 103 H 16 135/63 98 02/16/23 12:15 99 16 139/73 99 02/16/23 12:00 97 16 139/69 99 02/16/23 11:45 16 128/86 100 02/16/23 11:28 97.7 F 16 99/72 98 02/16/23 08:17 97.8 F 99 18 120/76 97 02/16/23 04:00 98.3 F 107 H 16 135/79 98 02/16/23 00:00 98.0 F 100 16 124/81 97 02/15/23 20:00 98.3 F 106 H 16 124/84 98 02/15/23 16:31 98.1 F 112 H 16 107/65 97 Intake and Output 02/15/23 02/16/23 02/16/23 22:59 06:59 14:59 Intake Total 368 10 620 Output Total 350 Balance 18 10 620 Intake: IV 10 10 510 Invasive Line 2 10 10 10 Oral 358 110 Output: Urine 350 Other: Voiding Method Urinal Urinal Urinal Diaper Diaper Diaper # Voids 1 # Bowel Movements 1 - Constitutional General appearance: average body habitus, no acute distress - EENT Eyes: EOMI ENT: hearing grossly normal - Respiratory breathing is even and unlabored - Cardiovascular skin warm and dry - Gastrointestinal mild distention General gastrointestinal: no tenderness - Integumentary Integumentary: no cyanotic, no jaundiced - Musculoskeletal Musculoskeletal: generalized weakness - Psychiatric Psychiatric: A&O x's 3 Results CBC & Chem 7: 02/16/23 07:58 02/16/23 07:58 Labs: Abnormal Lab Results - Last 24 Hours (Table) 02/15/23 02/16/23 02/16/23 Range/Units 13:55 07:58 07:58 RBC 2.94 L (4.30-5.90) m/uL Hgb 9.0 L D (13.0-17.5) gm/dL Hct 27.0 L (39.0-53.0) % Sodium 131 L (137-145) mmol/L Carbon Dioxide 18 L (22-30) mmol/L BUN 44 H (9-20) mg/dL Creatinine 2.36 H (0.66-1.25) mg/dL Glucose 100 H (74-99) mg/dL Calcium 7.1 L (8.4-10.2) mg/dL Troponin I 0.069 H* (0.000-0.034) ng/mL Microbiology - Last 24 Hours (Table) 02/14/23 07:55 Blood Culture Gram Stain - Preliminary Blood Blood Culture - Preliminary Presumptive Staph aureus Comments: liver ultrasound and chest CT reviewed Chest x-ray: report reviewed CT scan - chest: report reviewed Assessment and Plan (1) Paraproteinemia Current Visit: Yes Status: Acute Priority: Medium Code(s): D89.2 - HYPERGAMMAGLOBULINEMIA, UNSPECIFIED SNOMED Code(s): 597208369 (2) Infective endocarditis of tricuspid valve Current Visit: Yes Status: Acute Priority: High Code(s): I33.0 - ACUTE AND SUBACUTE INFECTIVE ENDOCARDITIS SNOMED Code(s): 165259828 (3) Sepsis Current Visit: Yes Status: Acute Priority: High Code(s): A41.9 - SEPSIS, UNSPECIFIED ORGANISM SNOMED Code(s): 42325454 (4) Lung mass Current Visit: Yes Status: Acute Priority: Medium Code(s): R91.8 - OTHER NONSPECIFIC ABNORMAL FINDING OF LUNG FIELD SNOMED Code(s): 552342217 Plan: Endocarditis: -RAY revealed tricuspid valve with large 3.01.1 cm echodensity most consistent with vegetation with severe tricuspid regurgitation -Continues on IV abx -Cardiology and CTS following. No plan for surgical intervention at this time JENNIFFER: -Worsening kidney function, Creatinine 2.36, GFR 32 -Cryoglobulin ordered -Nephro following Paraproteinemia: -Immunofixation was suspicious for IgG [place]. M spike not quantifiable. BING and rheumatoid factor negative. IgG elevated at 1908, IgA 699, IgM 237 -K/L light chains ordered -Paraproteinemia likely r/t to underlying Hep C. Recommend GI f/u for further eval of Hep C Apical plueral mass: -CT chest revealed numerous predominantly cystic/necrotic masses throughout the lungs as well as ill-defined infiltrative lesions in the lower lobes. Pleural based left apical mass measuring 2.7 x 1.0 cm. -Pulm consulted for further eval -This is more likely r/t to abscess/infectious process, but will need repeat CT chest after completion of treatment for reevaluation. If noted mass has not improved after treatment pt would need biopsy
[2023-02-16] MEDS: CYCLOBENZAPRINE 5 MG TAB PO PRN (20:16)
[2023-02-16 20:56] VITALS: BP 121/80; PULSE 118; RESP 18; TEMP 98.1
--- NOTE | 2023-02-17 07:18 | P.DS ---
Providers Date of admission: 02/12/23 02:58 Expected date of discharge: 02/17/23 Attending physician: Fátima Naranjo MD Consults: 02/12/23 02:16 Consult Physician Urgent Consulting Provider: [facility] Consult Reason/Comments: elevated trop. r.o endocarditis Do you want consulting provider notified?: Yes 02/12/23 02:27 Consult Physician Urgent Consulting Provider: Brittnee Cruz Consult Reason/Comments: infective endocarditis Do you want consulting provider notified?: Yes 02/12/23 08:14 Consult Physician Routine Consulting Provider: Evgeny Adams Consult Reason/Comments: hyponatremia Do you want consulting provider notified?: Yes 02/13/23 16:23 Consult Physician Routine Consulting Provider: Rashawn Aguilar Consult Reason/Comments: rash, concerns for vasculits, biopsy Do you want consulting provider notified?: Yes 02/14/23 21:19 Consult Physician Urgent Consulting Provider: Gorge Aden Consult Reason/Comments: re: endocarditis Do you want consulting provider notified?: Yes, Notify in am 02/15/23 11:09 Consult Physician Routine Consulting Provider: Juan Kelley Consult Reason/Comments: IgG kappa paraprotein Do you want consulting provider notified?: Yes 02/16/23 14:52 Consult Physician Routine Consulting Provider: Sophia Knott Consult Reason/Comments: lung mass, r/o infectious vs malignancy Do you want consulting provider notified?: Yes Primary care physician: Stated None Hospital Course: Patient transferred to [facility]. See previous progress note. Plan - Discharge Summary New Discharge Prescriptions: No Action No Known Home Medications Discharge Medication List No Known Home Medications 02/21/17 [History] Follow up Appointment(s)/Referral(s): None,Stated [Primary Care Provider] - 1-2 days Discharge/Stand Alone Forms: AA Meetings [place], [facility] [facility], Who Do I Call?, Community Resources, Outpatient Counseling, Inp Substance Abuse Facilities, Area PCPs Discharge Disposition: OTHER INSTITUTION NOT DEFINED
[2023-02-19 13:11] LABS: Free Lambda Lt Chain Qnt, Seru 22.23 mg/dL (0.57-2.63)
[2023-02-19 13:35] LABS: Free Kappa Lt Chain Qnt, Serum 28.13 mg/dL (0.33-1.94)
[2023-02-21 12:51] LABS: Cryoglobulin Absent (Absent)
--- NOTE | 2023-02-23 13:05 | P.CARDCATH ---
Date of Procedure: 02/16/23 Description of Procedure: PROCEDURES PERFORMED: Right heart catheterization INDICATION: Worsening kidney function, concern of cardiorenal syndrome, endocarditis CONSENT:I have discussed the risks, benefits and alternative therapies for the above-mentioned procedure and for both sedation/analgesia as well as necessary blood product administration, if indicated, as they pertain to this patient. The patient has indicated understanding and acceptance of the risks and procedures discussed. PROCEDURE: After the risks, benefits and alternatives of the above mentioned procedure explained in detail with the patient, informed consent was obtained. Patient was taken to the catheterization lab and prepped and draped in usual fashion. Ultrasound guidance was used to assess for venous access. 1% lidocaine was used to anesthetize the right brachial vein. A 6-Yoruba sheath was placed in the right brachial vein using modified Seldinger technique and ultrasound guidance. A 6-Yoruba Richmond-Wilberto catheter was inserted into the right atrium, right ventricle, pulmonary artery and pulmonary capillary wedge position and pressure measurements and oxygen saturations were obtained. Thermodilution was performed. The sheath was removed and pressure held with hemostasis achieved. The patient tolerated the procedure well. Patient was transported back to the post catheterization holding area in stable condition. Conscious Sedation: Patient was monitored under the direct supervision of myself for conscious sedation using Versed and fentanyl for a total duration of 10 minutes HEMODYNAMICS: Aorta: 117/74 PCWP: 14 PA: 30/13 RV: 30/2 RA: 10 Arterial oxygen saturation (by pulse ox on room air): 95% Right Atrium oxygen saturation: 64% Pulmonary artery oxygen saturation: 64% Cardiac output by Deysi: 6.4 L/m Cardiac index by Deysi: 3.5 L/m/m Cardiac output by thermodilution: 4.6 L/m Cardiac index by thermodilution: 2.6 L/m/m FINAL IMPRESSION: 1. Normal left and right-sided filling pressures 2. Normal cardiac output/cardiac index PLAN: 1. Continue current regimen, appears to have adequate cardiac output/cardiac index at this time
== END 2023-02-16 20:40 | disposition short-term general hospital (02) | DRG 720 ==
LOC: EC 19:35 → 3SCARD 02-12 02:58
PROVIDERS: ADMIT Internal Medicine; ATTEND Internal Medicine
PROC: B246ZZ4 Ultrasonography of Right and Left Heart, Transesophageal (ICD-10-PCS; principal; 2023-02-14 08:50)
PROC: 4A023N6 Measurement of Cardiac Sampling and Pressure, Right Heart, Percutaneous Approach (ICD-10-PCS; 2023-02-16 11:20)
DX: A41.01 Sepsis due to Methicillin susceptible Staphylococcus aureus (principal); B19.20 Unspecified viral hepatitis C without hepatic coma; I07.8 Other rheumatic tricuspid valve diseases; R65.20 Severe sepsis without septic shock; N17.0 Acute kidney failure with tubular necrosis; D69.6 Thrombocytopenia, unspecified; E86.1 Hypovolemia; E87.6 Hypokalemia; F11.10 Opioid abuse, uncomplicated; F15.10 Other stimulant abuse, uncomplicated; F17.290 Nicotine dependence, other tobacco product, uncomplicated; I21.A1 Myocardial infarction type 2; I26.90 Septic pulmonary embolism without acute cor pulmonale; I33.0 Acute and subacute infective endocarditis; K76.0 Fatty (change of) liver, not elsewhere classified; M31.0 Hypersensitivity angiitis; E87.20 Acidosis, unspecified; R91.8 Other nonspecific abnormal finding of lung field; Z11.52 Encounter for screening for COVID-19; Z28.310 Unvaccinated for COVID-19; Z28.21 Immunization not carried out because of patient refusal; Z59.00 Homelessness unspecified
CPT/HCPCS: 36415; 71045; 71046; 71260; 76705; 76770; 76937; 80048; 80053; 80074; 80306; 80320; 81001; 82085; 82247; 82550; 82570; 82585; 82595; 82810; 83605; 83735; 83880; 83883; 83930; 83935; 84100; 84156; 84165; 84300; 84443; 84450; 84460; 84484; 85018; 85025; 85027; 85610; 85652; 85730; 86038; 86140; 86160; 86162; 86225; 86255; 86334; 86431; 86780; 87040; 87077; 87186; 87205; 87390; 87449; 87522; 87536; 87636; 93005; 93306; 93312; 93320; 93325; 93451; 96361; 96365; 96366; 96367; 96368; 99285